=== PATIENT | female | born 1995 ===

== ENCOUNTER 2020-11-16 08:47 | Outpatient (REF) | payer OTHER, SELFPAY ==
[2020-11-16 11:33] LABS: Hematocrit 35.8 % (37-47); Hemoglobin 11.9 g/dl (12.0-16.0); Mean Corpuscular HGB Conc 33.2 g/dl (31.0-35.0); Mean Corpuscular Hemoglobin 28.7 pg (27.0-33.0); Mean Corpuscular Volume 86.3 fL (80-98); Mean Platelet Volume 10.8 fL (9.4-12.3); Platelet Count 221 X10*3/uL (160-400); Red Blood Count 4.15 X10*6/uL (4.20-5.50); White Blood Count 5.2 X10*3/uL (4.8-10.8)
[2020-11-16 12:15] LABS: Alanine Aminotransferase 14 U/L (0-31); Albumin Level 4.6 g/dL (3.5-5.0); Alkaline Phosphatase 102 U/L (39-117); Anion Gap 13 (12-20); Aspartate Amino Transferase 21 U/L (5-31); Bilirubin Total 0.6 mg/dL (0.0-1.0); Blood Urea Nitrogen 6 mg/dL (9-16); Calcium 9.3 mg/dL (8.4-10.2); Carbon Dioxide 26 mmol/L (22-29); Chloride 105 mmol/L (96-108); Estimated Glomerular Filt Rate > 60; Glucose Random 82 mg/dL (60-115); Potassium 3.3 mmol/L (3.3-5.1); Sodium 141 mmol/L (135-145); Total Protein 6.6 g/dL (6.5-8.0)
[2020-11-16 12:41] LABS: Rheumatoid Factor < 15.0 IU/mL (<15.0)
[2020-11-16 12:49] LABS: Erythrocyte Sedimentation Rate 4 MM/HR (0-20)
[2020-11-17 11:37] LABS: Cyclic Citrullinated Peptide <16 UNITS
== END 2020-11-16 08:48 | disposition home or self-care (01) ==
LOC: HO.HMGCLDS 08:47
PROVIDERS: PCP Internal Medicine; Visit Provider Internal Medicine
DX: R51.9 Headache, unspecified (principal); G89.29 Other chronic pain; M54.5 Low back pain
CPT/HCPCS: 36415; 80053; 85027; 85652; 86200; 86431

== ENCOUNTER 2021-01-18 08:00 | Outpatient (RCR) | payer OTHER, SELFPAY ==
--- NOTE | 2020-11-24 18:26 | MHC.PT.EP ---
[facility] [place] Office [place] Office [place] Office [address] [place] [address] [phone] F: [phone] F: [phone] F: [phone] F: [phone] Physical Therapy Plan of Care Date of Evaluation: 11/24/20 Date of Surgery: Diagnosis: BACK PAIN AND KNEE PAIN Assessment: 25 YO FEMALE REF TO PT FOR LBP AND ALONSO KNEE PAIN- H/O COVID IN OCT 2020 AND VAGINAL OF HER 1ST CHILD IN JUL 2020. SHE WORKS 30 HRS/ WK A CARDIAC US. SHE HAS DECR POSTURE AWARENESS, (-) SENSORIMOTOR DEFICITS, LIMITED HS FLEXIB, SORE W END RANGE TRUNK FLEX AND EXT, AND (+) SOFT TISSUE IRRIT, (+) SI Jt DYSFUNCTION, WITH (+) PELVIC ASYMM. FUNCTIONALLY, Pt HAS PAIN W SITTING AND STANDING AND LIFTING. SHE CURRENTLY HAS 2 FINGER-WIDTH DIASTASIS RECTI. Pt WOULD BENEFIT FROM PT TO ADDRESS PELVIC ASYMM, IMPROVE HS FLEXIB, AND DEV A HEP TO ADDRESS LUMBOPELVIC STRENGTH. Frequency and Duration: The patient will be seen 2x WK x 4 WKS Short Term Goals: DECR Pt'S LS PAIN TO 2-3/10 IN 2 WKS Pt'S HS FLEXIB WFL AND Pt DEMON PROPER FUNCT SQUAT IN 2 WKS Group Home Goals: Pt INDEP W HEP FOR STRENGTH AND STAB AND SELF-SX MGMT TECHN- WFL STRENGTH EVIDENT IN SYMMETRICAL PELVIS IN 4 WKS Pt PERF 3:3 SIMUL ADLs/ CHILDCARE TASKS W PROPER BODY MECH IN 4 WKS Treatment Plan: Modalities to reduce pain, spasms and effusion. Manual therapy to restore motion and function. Therapeutic exercise to improve strength and flexibility. Neuromuscular re-education for posture and balance. Therapeutic activities to return to functional activities of daily living. Electronically signed by: Sushila Barber PT Please sign and return to therapist. Thank you for your referral.
--- NOTE | 2021-01-18 09:01 | MHC.PT.DC ---
[facility] [place] Office [place] Office [place] Office [address] [place] [address] [phone] F: [phone] F: [phone] F: [phone] F: [phone] Physical Therapy Discharge Report Diagnosis: BACK PAIN AND KNEE PAIN Date of Surgery: Date of Evaluation: 11/24/20 Date of Discharge: 01/18/21 Treatments to Date: 11 Cancellations to Date: 1 No Shows to Date: 0 Discharge Status: Achieved Goals Improved Function Independent with HEP Discharge Summary: Pt MET PT GOALS AT THIS TIME- SHE DEMON IMPROVED AWARENESS W POSTURE AND BODY MECH, AND COMPLIANCY W HEP. SHE HAS INCR STRENGTH EVIDENT W IMPROVED PELVIC SYMM AND WILL CONT TO ADRESS FLEXIBILITY AND STABILITY WITH HEP. Electronically signed by: Sushila Barber,PT Please sign and return to therapist. Thank you for your referral.
== END 2021-01-18 09:03 | disposition other institution (70) ==
LOC: HO.PTCHIC 08:00
PROVIDERS: PCP Internal Medicine; Visit Provider Internal Medicine
DX: M54.5 Low back pain (principal)
CPT/HCPCS: 97110; 97112; 97140; 97161; 97530

== ENCOUNTER 2021-02-22 13:38 | Outpatient (REF) | payer OTHER, MEDICAID, SELFPAY ==
--- NOTE | ~2021-02-22 | US_ITS ---
EXAMINATION: US DIAGNOSTIC ULTRASOUND BREAST, LEFT CLINICAL INFORMATION: Left breast lump. COMPARISON: None. TECHNIQUE: Ultrasound of the breast is performed with real-time harper scale imaging and color Doppler. FINDINGS: There is no focal suspicious finding. There is no solid mass, architectural abnormality, duct ectasia, or edema in the soft tissue planes. Intramammary lymph node is seen at approximately 2:00 position 5 cm from the nipple. Results are discussed with the patient at time of visit. US/US breast LT limited IMPRESSION: No suspicious ultrasound findings in region of palpable abnormality of the left breast. ASSESSMENT: BI-RADS 1: Negative RECOMMENDATION: Clinical follow-up for palpable abnormality not seen on imaging. This patient's information was entered into a reminder system with a target due date for their next mammogram.
== END 2021-02-22 13:39 | disposition home or self-care (01) ==
LOC: HO.MAMMO 13:38
PROVIDERS: PCP Internal Medicine; Visit Provider Nurse Practitioner Family
DX: N61.0 Mastitis without abscess (principal)
CPT/HCPCS: 76642

== ENCOUNTER 2021-12-02 08:12 | Outpatient (REF) | payer OTHER, MEDICAID, SELFPAY ==
--- NOTE | ~2021-12-02 | FL_ITS ---
EXAMINATION: FL BARIUM SWALLOW CLINICAL INFORMATION: Dysphasia COMPARISON: None TECHNIQUE: Barium swallow examination is performed using fluoroscopic evaluation in addition to multiple fluoroscopic spot views. The patient is imaged both upright and prone and using both thick and thin sulfate along with effervescent granules. Fluoroscopy Time: 1 minutes DAP: 0.623 Gycm2 Images: 33 FINDINGS: There is normal apposition of the vocal cords while saying E. There is normal elevation of the soft palate while saying candy. There is no evidence of nasopharyngeal reflux or tracheal aspiration. No Zenker's diverticulum. No cricopharyngeal hypertrophy. Patient was unable to swallow half-inch diameter barium tablet not related to any strictures. The patient did swallow barium coated cookie without difficulty. Patient states that she does not take pills. No hiatal hernia was seen. There is normal esophageal motility. No mucosal abnormality is seen. No gastroesophageal reflux. FL/FL barium swallow IMPRESSION: Normal esophagram.
== END 2021-12-02 08:13 | disposition home or self-care (01) ==
LOC: HO.XRAY 08:12
PROVIDERS: PCP Internal Medicine; Visit Provider Otolaryngology
DX: R13.10 Dysphagia, unspecified (principal)
CPT/HCPCS: 74220

== ENCOUNTER 2022-02-03 19:55 | Emergency (ER) | payer OTHER, MEDICAID, SELFPAY ==
[2022-02-03 20:46] VITALS: BP 132/87; PULSE 101; RESP 18; TEMP 36.6; O2SAT 100; BMI 21.8
--- NOTE | 2022-02-03 21:37 | ED.NEUROSD ---
HPI - Neuro Symptoms/Deficit General Chief Complaint: Neuro Symptoms/Deficit Stated Complaint: Tongue feels heavy Time Seen by Provider: 02/03/22 21:37 Source: patient Mode of arrival: ambulatory Limitations: no limitations History of Present Illness HPI Narrative: 26-year-old female who presents emergency department for evaluation of her tongue feeling weird, right sided facial tingling this and right sided headache. The patient states that she was at a birthday green party and getting ready to leave around 19:00 hours she states that she then developed a weird sensation in her tongue which describes as heaviness and she had difficulty talking. She also developed a right-sided headache that she describes as a pinching sensation which was 5/10 at its worst. She also had a tingling sensation on the right side of her head, she felt dizzy and short of breath. She states that her headache is still persistent and her tongue is feeling almost back to normal. She has no difficulty talking or finding words. She denies any numbness or weakness. She denies being ill in any way prior to the onset of symptoms. She states that after she gave she did have chronic headaches but it is unusual for her to have headaches. She does not have a history of migraine headaches. Onset (ago): hour(s) (3) Timing confirmed by: other (Patient) Location: right face and other (Right-sided headache, tongue heaviness) History of same: No Severity: moderate Quality: tingling Relieving factors: none Exacerbating factors: none Context: sudden onset On Anticoagulants: No Associated symptoms: headaches (Right-sided pinching sensation) and shortness of breath Treatments Prior to Arrival: none Related Data Home Medications Medication Instructions Recorded Confirmed No Known Home Meds 11/21/21 11/21/21 Allergies Allergy/AdvReac Type Severity Reaction Status Date / Time No Known Allergies Allergy Verified 02/03/22 20:51 Review of Systems Review of Systems: Yes all other systems are reviewed and are negative [facility] Past Medical History [facility] Narrative: Past medical history: None. Past surgical history: None. Social history: She denies tobacco use. She denies alcohol use. She denies drug use. She works here at [employer] as an [employer]. Medical History Annual physical exam Chronic headaches Chronic lower back pain Eczema Knee pain Sore throat Surgical History History of hernia repair Family History Family History Father Medical history non-contributory Mother HTN (hypertension) Maternal Grandfather Unknown family medical history Maternal Grandmother Unknown family medical history Paternal Grandmother No problems noted. Paternal Grandfather Unknown family medical history Brother No problems noted. Sister No problems noted. 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 Housing: House Alcohol intake: never Patient Tobacco Use Status: Never used Tobacco e-Cigarette/Vaping Use: Never Used Advance Directives: No Advance Directives Information Provided: No Patient : No Current occupational status: employed Physical Exam Vital Signs: Vital Signs: Last Vital Signs Temp 97.8 F 02/03/22 20:46 Pulse 101 H 02/03/22 20:46 Resp 18 02/03/22 20:46 BP 132/87 02/03/22 20:46 Pulse Ox 100 02/03/22 20:46 BMI result Body Mass Index 21.8 Const: General: cooperative and no acute distress Orientation/consciousness: oriented to person and oriented to place Limitations: no limitations HEENT: Head: Yes normal to inspection, Yes normocephalic and Yes atraumatic Ears: external ears normal General nose exam: Normal external nose present Face and sinus: Yes normal facial exam Mouth: Normal oral and palatal mucosa present Throat: Yes posterior oropharynx normal Eyes: General: appearance normal, both eyes and all related structures Pupils: Equal, round and reactive pupils present Neck: Neck: Yes normal visual inspection, Yes no lymphadenopathy, Yes trachea midline and Yes supple Chest: Chest palpation & inspection: normal inspection of the chest and normal palpation of entire chest wall Resp: Effort & Inspection: normal respiratory effort and able to speak in complete sentences Auscultation: clear to auscultation bilaterally Cardio: Rate: regular rate Rhythm: regular rhythm Heart sounds: S1 normal heart sound present, S2 normal heart sound present and no murmurs GI: Inspection: Yes normal to inspection Palpation (GI): Soft to palpation, nontender and no guarding Auscultation: normal bowel sounds : General: Yes no CVA tenderness Back/Spine/Pelvis: Back: no CVA tenderness Skin: General skin exam: no rashes or lesions noted Neuro: General: oriented to person and oriented to place Cranial nerves: Yes CN's II-XII intact bilaterally and Yes Equal, round and reactive pupils present Cognition (Neuro): normal cognition Motor exam (neuro): 5/5 motor strength present throughout Extrem: General: Yes normal to inspection Psych: Appearance: grossly normal Speech and movement: Normal speech and movement present Affect: normal affect Attitude: cooperative Thought process: Normal thought process present Thought content: Normal thought content present Course Course Course Narrative: 26-year-old female who presents emergency department for evaluation of sudden onset of a ?weird ?sensation in her time, right-sided facial tingling miss, right-sided headache, shortness of and difficulty talking which began at 19:16 hours when the patient was getting ready to leave a birthday green party. At the time my evaluation the patient's symptoms are almost completely resolved, she still has a slight headache but she believes that her time sensations are almost back to normal and the tingling this on the right side of her face is also resolved. Patient's initial vital signs did reveal tachycardia with a heart rate of 101 otherwise were unremarkable. The patient's physical examination including her neurologic exam was normal. Patient's tongue exam was normal and her speech is normal. At this time, I suspect that the patient's symptoms are consistent with a migraine headache syndrome and I did not think that she has had a stroke. I did discuss this with her. Patient was given printed and verbal instructions and discharged home. Discharge Plan Discharge Clinical Impression: Migraine Patient Disposition: Home, Self-Care Instructions: Migraine Headache (ED) Additional Instructions: At this time, I believe that your symptoms of your tongue feeling ?weird? , the tingling sensation on the right side of your face and your right-sided headache are consistent with a migraine headache syndrome. When you get home take either Tylenol 2 tablets orally or ibuprofen 2 tablets by mouth for your headache and hopefully this will make you symptoms go away completely. Follow-up with your doctor in 2 days. Please return to the emergency department if your symptoms get worse or if you develop any symptoms that are concerning to you. Prescriptions: No Action No Known Home Meds 0RF
== END 2022-02-03 22:00 | disposition home or self-care (01) ==
PROVIDERS: Emergency Provider Emergency Medicine Emergency Medical Services; PCP Internal Medicine
DX: G43.009 Migraine without aura, not intractable, without status migrainosus (principal)
CPT/HCPCS: 99282; 99283

== ENCOUNTER 2022-04-04 09:07 | Outpatient (REF) | payer OTHER, MEDICAID, SELFPAY ==
[2022-04-04 11:32] LABS: MANUAL DIFF FLAG NO
[2022-04-04 11:53] LABS: Basophils Absolute Auto 0.1 X10*3/uL (0.0-0.2); Basophils Percent Auto 1.3 % (0-2); Eosinophils Absolute Auto 0.1 X10*3/uL (0.0-0.4); Eosinophils Percent Auto 3.1 % (0-4); Hematocrit 38.7 % (37.0-47.0); Hemoglobin 12.4 g/dl (12.0-16.0); Imm Gran Abs Auto 0.01 X10*3/uL (0.00-0.03); Imm Gran Pct Auto 0.2 % (0.0-0.4); Lymphocytes Absolute Auto 1.3 X10*3/uL (1.2-4.9); Lymphocytes Percent Auto 29.9 % (20-40); Mean Corpuscular Hemoglobin 29.1 pg (27.0-33.0); Mean Corpuscular Volume 90.8 fL (80.0-98.0); Monocytes Absolute Auto 0.4 X10*3/uL (0.1-1.2); Monocytes Percent Auto 9.4 % (2-11); Neutrophils Absolute Auto 2.5 x10*3/uL (2.0-8.3); Neutrophils Percent Auto 56.1 % (45-73); Platelet Count 247 X10*3/uL (160-400); Red Blood Count 4.26 X10*6/uL (4.20-5.50); Red Cell Distribution Width 12.6 % (11.0-16.0); White Blood Count 4.5 X10*3/uL (4.8-10.8)
[2022-04-04 12:12] LABS: Alanine Aminotransferase 7 U/L (0-31); Albumin Level 4.8 g/dL (3.5-5.0); Alkaline Phosphatase 88 U/L (39-117); Anion Gap 12 (12-20); Aspartate Amino Transferase 17 U/L (5-31); Bilirubin Total 0.5 mg/dL (0.0-1.0); Blood Urea Nitrogen 12 mg/dL (9-16); Calcium 9.8 mg/dL (8.4-10.2); Carbon Dioxide 25 mmol/L (22-29); Chloride 106 mmol/L (96-108); Cholesterol 138 mg/dL; Estimated Glomerular Filt Rate > 60; Glucose Fasting 86 mg/dL (60-99); HDL Cholesterol 55 mg/dL; LDL Cholesterol Calculated 76 mg/dl; Potassium 4.6 mmol/L (3.3-5.1); Sodium 138 mmol/L (135-145); Total Protein 7.4 g/dL (6.5-8.0); Triglycerides 36 mg/dL
[2022-04-04 12:35] LABS: TSH reflex Free T4 0.99 uIU/mL (0.32-4.0)
== END 2022-04-04 09:08 | disposition home or self-care (01) ==
LOC: HO.HMGCLDS 09:07
PROVIDERS: PCP Internal Medicine; Visit Provider Internal Medicine
DX: Z00.00 Encounter for general adult medical examination without abnormal findings (principal); R63.4 Abnormal weight loss; Z71.3 Dietary counseling and surveillance
CPT/HCPCS: 36415; 80053; 80061; 84443; 85025; 97802

== ENCOUNTER 2022-11-05 18:11 | Emergency (ER) | payer MEDICAID, SELFPAY ==
--- NOTE | 2022-11-05 18:14 | ED_ITS ---
HPI - Allergic Reaction General Chief complaint: Allergic Reaction Stated complaint: allergic reaction/ difficulty swallowing Time Seen by Provider: 11/05/22 19:36 Source: patient Mode of arrival: ambulatory History of Present Illness HPI narrative: 27yo F w/no sig PMHx presenting to the ED complaining of suspected allergic reaction with sore throat, throat tightness and SOB s/p eating shrimp 10 mins [employer]. Admits to milder reaction to shrimp in the past. Denies other known previous allergens. Denies rash, CP, other new medications, abdominal pain, nausea/vomiting MD complaint: allergic reaction Onset (ago): minute(s) Exposure: food Related Data Previous Rx's Medication Instructions Recorded cetirizine 10 mg capsule (Zyrtec) 10 mg PO DAILY #14 caps 11/05/22 diphenhydramine HCl 25 mg capsule 25 mg PO TID PRN allergic reaction 11/05/22 (Benadryl) #14 caps Allergies Allergy/AdvReac Type Severity Reaction Status Date / Time shrimp Allergy Facial Verified 11/05/22 18:21 Swelling Review of Systems Review of Systems: Constitutional: No Fever, No Chills, No Fatigue, No Malaise ENT/Mouth: No Ear Pain, No Nasal Congestion, No Sinus Pain, No Hoarseness, + sore throat, No Rhinorrhea, No Swallowing Difficulty Eyes: No Eye Pain, No Swelling, No Redness Cardiovascular: No Chest Pain, + SOB, No Dyspnea on Exertion Respiratory: No Cough, No Sputum, No Wheezing, No Dyspnea Gastrointestinal: No Nausea, No Vomiting, No Diarrhea, No Constipation, No Abdominal pain Musculoskeletal: No joint pain, No Myalgias, No Joint Swelling Skin: No Skin Lesions, No rash Neuro: No Weakness, No Numbness, No Headache Yes all other systems are reviewed and are negative Constitutional: Constitutional: Reports as per [facility] Past Medical History Attestation statement: The following information was validated with the patient. Medical History Annual physical exam Chronic headaches Chronic lower back pain Eczema Knee pain Sore throat Weight loss Surgical History History of hernia repair Family History Family History Father Medical history non-contributory Mother HTN (hypertension) Maternal Grandfather Unknown family medical history Maternal Grandmother Unknown family medical history Paternal Grandmother No problems noted. Paternal Grandfather Unknown family medical history Brother No problems noted. Sister No problems noted. 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: House Alcohol intake: never Patient Tobacco Use Status: Never used Tobacco e-Cigarette/Vaping Use: Never Used Advance Directives: No Advance Directives Information Provided: No Current occupational status: employed Cognitive needs: No Hearing needs: No Vision needs: Yes Physical Exam ED Vital Signs: Vital Signs - 24 hr 11/05/22 18:15 Temperature 97.2 F Pulse Rate 116 H Respiratory Rate 18 Blood Pressure 132/70 Pulse Oximetry 99 BMI result Body Mass Index 20.2 Const General: cooperative, healthy appearing and no acute distress Orientation/consciousness: patient oriented x3 Limitations: no limitations HENMT Head: Yes normal to inspection and Yes atraumatic Ears: hearing grossly normal bilaterally General nose exam: Normal external nose present Face and sinus: Yes normal facial exam Mouth: Normal oral and palatal mucosa present and no drooling Throat: Yes posterior oropharynx normal, Yes tonsils normal, Yes uvula midline, No peritonsillar mass, No posterior oropharynx abnormal, No uvula laterally displaced and No uvular edema Eyes General: appearance normal, both eyes and all related structures EOM: EOMs intact bilaterally Neck Neck: Yes normal visual inspection, Yes no meningeal signs and No anterior neck swelling Resp Effort & Inspection: normal respiratory effort, no respiratory distress, no stridor and not tachypneic Auscultation: clear to auscultation bilaterally, no crackles, no rales, no rhonchi and no wheezes Cardio Rate: regular rate Heart sounds: S1 normal heart sound present and S2 normal heart sound present Skin Rashes: no rashes Wounds: no wounds Neuro General: patient oriented x3, tone normal and no meningeal signs Gait exam (Neuro): Normal gait present Extrem General: Yes normal to inspection Course Course Course Narrative: RME--27yo F w/no sig PMHx c/o sore throat, throat tightness and SOB s/p eating shrimp 10 mins [employer]. Admits to milder reaction to shrimp in the past. Denies other known previous allergens. Denies rash. Denies taking medications [employer] No rash, Lungs CTA, oropharynx WNL, uvula midline, handling secretions, talking in complete sentences IM Benadryl, IM Solumedrol and PO Pepcid ordered -1935--patient has been observed and re-evaluated for over an hour s/p incident, reports symptomatic improvement/resolution at present, talking in complete sentences, no respiratory distress. Results discussed with patient including worrisome signs and symptoms and strict return precautions, and when to return to the emergency department. They demetris balized understanding and feel safe for discharge at this time. Medications Administered Discontinued Medications Generic Name Dose Route Start Last Admin Trade Name Freq PRN Reason Stop Dose Admin Diphenhydramine HCl 50 mg 11/05/22 18:15 11/05/22 18:27 Diphenhydramine Hcl 50 Mg/Ml Vial IM 11/05/22 18:16 50 mg ONCE ONE Administration Famotidine 20 mg 11/05/22 18:15 11/05/22 18:27 Famotidine 20 Mg Tablet PO 11/05/22 18:16 20 mg ONCE ONE Administration Methylprednisolone Sodium Succinate 60 mg 11/05/22 18:15 11/05/22 18:27 Methylprednisolone Sod Succ 125 Mg/2 Ml Vial IM 11/05/22 18:16 60 mg ONCE ONE Administration Medical Decision Making Medical Decision Making [facility] Narrative: 27yo F w/no sig PMHx presenting to the ED complaining of suspected allergic reaction with sore throat, throat tightness and SOB s/p eating shrimp 10 mins [employer]. On exam mildly tachycardic likely from anxiety, NAD, nontoxic appearing, no respiratory distress, lungs CTA, handling secretions, no stridor, or pharynx WNL, no appreciable swelling, uvula midline. No rash. Concern for allergic reaction. No evidence of anaphylaxis at this time. Plan: IM Benadryl, IM Solu-Medrol, PO Pepcid, observe and reassess Please refer to course for remaining clinical decision making, interpretation of labs/imaging results, and discussions with consultants and/or family members. Differential Diagnosis Differential Diagnoses: The differential diagnosis associated with the presentation includes As above Admission/Observation Consideration of admission/observation: Escalation of care including admission/observation considered Prescription Management I considered prescription management with: Other Critical Care Time Critical Care Time Critical Care Time: Yes Total Critical Care Time: 35 Attestation: I have personally provided critical care time exclusive of time spent on separately billable procedures. Time includes review of lab data, radiology results, discussion with consultants, and monitoring for potential decompensation. Intervention performed as documented. Discharge Plan Discharge Clinical Impression: Allergic reaction Patient Disposition: Home, Self-Care Instructions: General Allergic Reaction (ED) Additional Instructions: Please start taking Zyrtec daily, this will not make you drowsy. Take Benadryl as needed for allergic reaction symptoms, this pill make you drowsy Please follow-up with her primary care doctor and medical receptionist If symptoms recur, he developed throat swelling, itching, cough, shortness of breath, or rash return to the emergency department Prescriptions: New Zyrtec 10 mg capsule 10 mg PO DAILY Qty: 14 0RF diphenhydramine HCl [Benadryl] 25 mg capsule 25 mg PO TID PRN (Reason: allergic reaction) Qty: 14 0RF Referrals: Álvaro Mack MD [Physician] - Jaden Miller DO [Physician] - Amrita Elise MD [Primary Care Provider] - 2 days Connie Swenson MD [Physician] - Jaswinder Barger MD [Physician] - Alison Lock MD [Physician] -
[2022-11-05 18:15] VITALS: BP 132/70; PULSE 116; RESP 18; TEMP 36.2; O2SAT 99; BMI 20.2
[2022-11-05] MEDS: Famotidine 20 MG TABLET PO (18:27)
[2022-11-05] MEDS: methylPREDNISolone Sod Succ 125 MG/2 ML VIAL 60 MG IM (18:27)
[2022-11-05] MEDS: diphenhydrAMINE HCL 50 MG/ML VIAL IM (18:27)
[2022-11-05 19:48] VITALS: PULSE 86; O2SAT 98
== END 2022-11-05 19:49 | disposition home or self-care (01) ==
PROVIDERS: Emergency Provider Internal Medicine; PCP Internal Medicine
DX: L50.0 Allergic urticaria (principal); Z79.899 Other long term (current) drug therapy
CPT/HCPCS: 96372; 99282; 99284; J1200; J2930

== ENCOUNTER 2022-11-14 19:09 | Emergency (ER) | payer MEDICAID, SELFPAY ==
[2022-11-14 19:47] VITALS: BP 185/95; PULSE 122; RESP 20; TEMP 36.8; O2SAT 98; BMI 20.2
--- NOTE | 2022-11-14 19:49 | ED_ITS ---
HPI - General Adult General Chief complaint: General Medical <Usha Dorado CNP - Last Filed: 11/14/22 19:57> Stated complaint: dizziness,elevated bp,blurry vision <Usha Dorado CNP - Last Filed: 11/14/22 19:57> Time Seen by Provider: 11/14/22 22:58 <Usha Dorado CNP - Last Filed: 11/14/22 19:57> Source: patient <Robert Martinez MD - Last Filed: 11/14/22 23:58> Mode of arrival: ambulatory <Robert Martinez MD - Last Filed: 11/14/22 23:58> History of Present Illness HPI narrative: Patient otherwise healthy history of panic attack/anxiety chronic headaches been having 1 week of nonspecific complaints of dizziness nausea blurred vision body aches started having headache today patient was anxious on arrival with pulse rate of 122 and blood pressure 185/95 repeat blood pressure was 125/78 pain patient also feel dizzy with nausea patient headache is bilateral nonspecific uncomfortable with light sensitivity and nausea <Robert Martinez MD - Last Filed: 11/14/22 23:58> Related Data Home medications: Previous Rx's Medication Instructions Recorded cetirizine 10 mg capsule (Zyrtec) 10 mg PO DAILY #14 caps 11/05/22 diphenhydramine HCl 25 mg capsule 25 mg PO TID PRN allergic reaction 11/05/22 (Benadryl) #14 caps fgprxpggpu-[id number]-ufcjzjyd 1 cap PO Q6H PRN headache #20 caps 11/14/22 50 mg-300 mg-40 mg capsule (Fioricet) sumatriptan succinate 50 mg tablet 50 mg PO Q2H PRN migraine headache 11/14/22 (Imitrex) #10 tabs <Usha Dorado CNP - Last Filed: 11/14/22 19:57> Allergies/adverse reactions: Allergies Allergy/AdvReac Type Severity Reaction Status Date / Time shrimp Allergy Facial Verified 11/05/22 18:21 Swelling <Usha Dorado CNP - Last Filed: 11/14/22 19:57> Review of Systems Review of Systems: Yes all other systems are reviewed and are negative <Robert Martinez MD - Last Filed: 11/14/22 23:58> FOR[facility]LY [facility] Past Medical History Medical History: Medical History Annual physical exam Chronic headaches Chronic lower back pain Eczema Knee pain Sore throat Weight loss <Usha Doardo CNP - Last Filed: 11/14/22 19:57> Surgical History: Surgical History History of hernia repair <Usha Dorado CNP - Last Filed: 11/14/22 19:57> Family History Family History: Family History Father Medical history non-contributory Mother HTN (hypertension) Maternal Grandfather Unknown family medical history Maternal Grandmother Unknown family medical history Paternal Grandmother No problems noted. Paternal Grandfather Unknown family medical history Brother No problems noted. Sister No problems noted. 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 Housing: House Alcohol intake: never Patient Tobacco Use Status: Never used Tobacco e-Cigarette/Vaping Use: Never Used Advance Directives: No Advance Directives Information Provided: No Current occupational status: employed Cognitive needs: No Hearing needs: No Vision needs: Yes <Usha Dorado CNP - Last Filed: 11/14/22 19:57> Physical Exam ED Vital Signs: Vital Signs - 24 hr 11/14/22 19:47 11/14/22 22:21 Temperature 98.2 F 98 F Pulse Rate 122 H 78 Respiratory Rate 20 18 Blood Pressure 185/95 H 125/78 Pulse Oximetry 98 98 Oxygen Delivery Method Room Air Room Air BMI result Body Mass Index 20.2 <Usha Dorado CNP - Last Filed: 11/14/22 19:57> Vital Signs - 24 hr 11/14/22 19:47 11/14/22 22:21 Temperature 98.2 F 98 F Pulse Rate 122 H 78 Respiratory Rate 20 18 Blood Pressure 185/95 H 125/78 Pulse Oximetry 98 98 Oxygen Delivery Method Room Air Room Air BMI result Body Mass Index 20.2 <Robert Martinez MD - Last Filed: 11/14/22 23:58> Appearance: Alert. Oriented X3. No acute distress. Anxious Eyes: PERRLA, No Nystagmus ENT: Pharynx normal. Oral Mucosa moist no temporal artery tenderness Neck: Normal inspection. Neck supple. CVS: Normal heart rate and rhythm. Pulses normal. Respiratory: No respiratory distress. Equal air entry bilateral, no wheezing/rales/rhonchi Abdomen: Soft and nontender. Bowel sounds are present, no mass palpable, no CVA tenderness Skin: Skin warm and dry. Normal skin color. Normal skin turgor. Extremities: No lower extremity edema. No calf tenderness Neuro: Oriented X 3. No motor deficit. No sensory deficit.No cerebellar signs , cranial nerves II-XII intact <Robert Martinez MD - Last Filed: 11/14/22 23:58> Course Course Course Narrative: Patient is a 27-year-old female presents emergency department. She states that this morning she developed a headache diffuse since this morning, soon after developed dizziness, described as unsteadiness when walking as well as room spinning sensation, and blurred vision. No nausea without vomiting. Chest pain that is intermittent, pointing to lower midsternal region/epigastric. She went to stop and shop today to check her blood pressure states he was 140/86, no hx HTN. Symptom onset was 1 week ago. Denies possibility of , currently menstruating. Denies history of DVT/PE, cancer, oral contraceptives, cigarette smoking. Denies any recent surgery or immobilization. Does not trialed any OTC medications for the headache. Denies any history migraines/recurrent headaches. PE: tearful, anxious, tachycardia 110's. Plan: Labs, EKG, chest x-ray, viral testing <Usha Dorado CNP - Last Filed: 11/14/22 19:57> Medical Decision Making Medical Decision Making MDM Narrative: Patient's symptoms likely from anxiety/complex migraine headache improved after Imitrex and Fioricet will discharge patient home on the same advised to follow with PCP patient labs are negative for any acute infectious process <Robert Martinez MD - Last Filed: 11/14/22 23:58> Lab Data MDM Lab Attestation statement: I reviewed the patient's lab results. <Robert Martinez MD - Last Filed: 11/14/22 23:58> Result Diagrams: 11/14/22 20:29 11/14/22 20:26 <Usha Dorado CNP - Last Filed: 11/14/22 19:57> Labs: Lab Results 11/14/22 11/14/22 11/14/22 Range/Units 20:26 20:26 20:26 WBC (4.8-10.8) X10*3/uL RBC (4.20-5.50) X10*6/uL Hgb (12.0-16.0) g/dl Hct (37.0-47.0) % MCV (80.0-98.0) fL MCH (27.0-33.0) pg MCHC (31.0-35.0) g/dl RDW (11.0-16.0) % Plt Count (160-400) X10*3/uL MPV (9.4-12.3) fL Immature Gran % (Auto) (0.0-0.4) % Neut % (Auto) (45-73) % Lymph % (Auto) (20-40) % [place] % (Auto) (2-11) % Eos % (Auto) (0-4) % Baso % (Auto) (0-2) % Lymph # (Auto) (1.2-4.9) X10*3/uL [place] # (Auto) (0.1-1.2) X10*3/uL Eos # (Auto) (0.0-0.4) X10*3/uL Baso # (Auto) (0.0-0.2) X10*3/uL Abs Immat Gran (auto) (0.00-0.03) X10*3/uL Absolute Neuts (auto) (2.0-8.3) x10*3/uL Absolute Nucleated RBC (0.0-0.012) X10*3/uL Nucleated RBC % (auto) (0.0-0.2) /100WBC PT 11.7 (10.0-13.1) SEC INR 1.0 (0.9-1.1) Sodium 139 (135-145) mmol/L Potassium 3.8 (3.3-5.1) mmol/L Chloride 106 (96-108) mmol/L Carbon Dioxide 22 (22-29) mmol/L Anion Gap 15 (12-20) BUN 15 (9-16) mg/dL Creatinine 0.76 (0.5-1.4) mg/dL Estim Creat Clear Calc 76.5 Estimated GFR > 60 Random Glucose 90 (60-115) mg/dL Calcium 10.1 (8.4-10.2) mg/dL Magnesium 2.0 (1.6-2.6) mg/dL Total Bilirubin 0.5 (0.0-1.0) mg/dL AST 18 (5-31) U/L ALT 6 (0-31) U/L Alkaline Phosphatase 94 (39-117) U/L Troponin I High Sens < 3.5 (<3.5-17.0) ng/L Total Protein 6.9 (6.5-8.0) g/dL Albumin 4.6 (3.5-5.0) g/dL Lipase 24 (8-78) U/L Urine Color Urine Appearance Urine pH (5.0-9.0) Ur Specific [place] (1.005-1.025) Urine Protein (Neg-Trace) mg/dL Urine Glucose (UA) (Negative) mg/dL Urine Ketones (Negative) mg/dL Urine Blood (Negative) Urine Nitrite (Negative) Ur Leukocyte Esterase (Negative) Urine Test (NEGATIVE) COVID-19 (NEL) (Negative) COVID-19 Clin Com Influenza Type A (MEGA) (Negative) Influenza Type B (MEGA) (Negative) Influenza A & B Note 11/14/22 11/14/22 11/14/22 Range/Units 20:26 20:26 20:29 WBC 6.6 (4.8-10.8) X10*3/uL RBC 3.91 L (4.20-5.50) X10*6/uL Hgb 11.7 L (12.0-16.0) g/dl Hct 34.5 L (37.0-47.0) % MCV 88.2 (80.0-98.0) fL MCH 29.9 (27.0-33.0) pg MCHC 33.9 (31.0-35.0) g/dl RDW 12.6 (11.0-16.0) % Plt Count 254 (160-400) X10*3/uL MPV 10.0 (9.4-12.3) fL Immature Gran % (Auto) 0.3 (0.0-0.4) % Neut % (Auto) 48.7 (45-73) % Lymph % (Auto) 39.2 (20-40) % [place] % (Auto) 9.8 (2-11) % Eos % (Auto) 1.2 (0-4) % Baso % (Auto) 0.8 (0-2) % Lymph # (Auto) 2.6 (1.2-4.9) X10*3/uL [place] # (Auto) 0.6 (0.1-1.2) X10*3/uL Eos # (Auto) 0.1 (0.0-0.4) X10*3/uL Baso # (Auto) 0.1 (0.0-0.2) X10*3/uL Abs Immat Gran (auto) 0.02 (0.00-0.03) X10*3/uL Absolute Neuts (auto) 3.2 (2.0-8.3) x10*3/uL Absolute Nucleated RBC 0.000 (0.0-0.012) X10*3/uL Nucleated RBC % (auto) 0.0 (0.0-0.2) /100WBC PT (10.0-13.1) SEC INR (0.9-1.1) Sodium (135-145) mmol/L Potassium (3.3-5.1) mmol/L Chloride (96-108) mmol/L Carbon Dioxide (22-29) mmol/L Anion Gap (12-20) BUN (9-16) mg/dL Creatinine (0.5-1.4) mg/dL Estim Creat Clear Calc Estimated GFR Random Glucose (60-115) mg/dL Calcium (8.4-10.2) mg/dL Magnesium (1.6-2.6) mg/dL Total Bilirubin (0.0-1.0) mg/dL AST (5-31) U/L ALT (0-31) U/L Alkaline Phosphatase (39-117) U/L Troponin I High Sens (<3.5-17.0) ng/L Total Protein (6.5-8.0) g/dL Albumin (3.5-5.0) g/dL Lipase (8-78) U/L Urine Color Urine Appearance Urine pH (5.0-9.0) Ur Specific [place] (1.005-1.025) Urine Protein (Neg-Trace) mg/dL Urine Glucose (UA) (Negative) mg/dL Urine Ketones (Negative) mg/dL Urine Blood (Negative) Urine Nitrite (Negative) Ur Leukocyte Esterase (Negative) Urine Test (NEGATIVE) COVID-19 (NEL) Negative (Negative) COVID-19 Clin Com See Note Influenza Type A (MEGA) Negative (Negative) Influenza Type B (MEGA) Negative (Negative) Influenza A & B Note See Note 11/14/22 11/14/22 Range/Units 20:29 20:29 WBC (4.8-10.8) X10*3/uL RBC (4.20-5.50) X10*6/uL Hgb (12.0-16.0) g/dl Hct (37.0-47.0) % MCV (80.0-98.0) fL MCH (27.0-33.0) pg MCHC (31.0-35.0) g/dl RDW (11.0-16.0) % Plt Count (160-400) X10*3/uL MPV (9.4-12.3) fL Immature Gran % (Auto) (0.0-0.4) % Neut % (Auto) (45-73) % Lymph % (Auto) (20-40) % [place] % (Auto) (2-11) % Eos % (Auto) (0-4) % Baso % (Auto) (0-2) % Lymph # (Auto) (1.2-4.9) X10*3/uL [place] # (Auto) (0.1-1.2) X10*3/uL Eos # (Auto) (0.0-0.4) X10*3/uL Baso # (Auto) (0.0-0.2) X10*3/uL Abs Immat Gran (auto) (0.00-0.03) X10*3/uL Absolute Neuts (auto) (2.0-8.3) x10*3/uL Absolute Nucleated RBC (0.0-0.012) X10*3/uL Nucleated RBC % (auto) (0.0-0.2) /100WBC PT (10.0-13.1) SEC INR (0.9-1.1) Sodium (135-145) mmol/L Potassium (3.3-5.1) mmol/L Chloride (96-108) mmol/L Carbon Dioxide (22-29) mmol/L Anion Gap (12-20) BUN (9-16) mg/dL Creatinine (0.5-1.4) mg/dL Estim Creat Clear Calc Estimated GFR Random Glucose (60-115) mg/dL Calcium (8.4-10.2) mg/dL Magnesium (1.6-2.6) mg/dL Total Bilirubin (0.0-1.0) mg/dL AST (5-31) U/L ALT (0-31) U/L Alkaline Phosphatase (39-117) U/L Troponin I High Sens (<3.5-17.0) ng/L Total Protein (6.5-8.0) g/dL Albumin (3.5-5.0) g/dL Lipase (8-78) U/L Urine Color Yellow Urine Appearance Cloudy Urine pH 7.5 (5.0-9.0) Ur Specific [place] 1.025 (1.005-1.025) Urine Protein Negative (Neg-Trace) mg/dL Urine Glucose (UA) Negative (Negative) mg/dL Urine Ketones Negative (Negative) mg/dL Urine Blood Negative (Negative) Urine Nitrite Negative (Negative) Ur Leukocyte Esterase Negative (Negative) Urine Test NEGATIVE (NEGATIVE) COVID-19 (NEL) (Negative) COVID-19 Clin Com Influenza Type A (MEGA) (Negative) Influenza Type B (MEGA) (Negative) Influenza A & B Note <Usha Dorado, [employer] - Last Filed: 11/14/22 19:57> Lab Results 11/14/22 11/14/22 11/14/22 Range/Units 20:26 20:26 20:26 WBC (4.8-10.8) X10*3/uL RBC (4.20-5.50) X10*6/uL Hgb (12.0-16.0) g/dl Hct (37.0-47.0) % MCV (80.0-98.0) fL MCH (27.0-33.0) pg MCHC (31.0-35.0) g/dl RDW (11.0-16.0) % Plt Count (160-400) X10*3/uL MPV (9.4-12.3) fL Immature Gran % (Auto) (0.0-0.4) % Neut % (Auto) (45-73) % Lymph % (Auto) (20-40) % [place] % (Auto) (2-11) % Eos % (Auto) (0-4) % Baso % (Auto) (0-2) % Lymph # (Auto) (1.2-4.9) X10*3/uL [place] # (Auto) (0.1-1.2) X10*3/uL Eos # (Auto) (0.0-0.4) X10*3/uL Baso # (Auto) (0.0-0.2) X10*3/uL Abs Immat Gran (auto) (0.00-0.03) X10*3/uL Absolute Neuts (auto) (2.0-8.3) x10*3/uL Absolute Nucleated RBC (0.0-0.012) X10*3/uL Nucleated RBC % (auto) (0.0-0.2) /100WBC PT 11.7 (10.0-13.1) SEC INR 1.0 (0.9-1.1) Sodium 139 (135-145) mmol/L Potassium 3.8 (3.3-5.1) mmol/L Chloride 106 (96-108) mmol/L Carbon Dioxide 22 (22-29) mmol/L Anion Gap 15 (12-20) BUN 15 (9-16) mg/dL Creatinine 0.76 (0.5-1.4) mg/dL Estim Creat Clear Calc 76.5 Estimated GFR > 60 Random Glucose 90 (60-115) mg/dL Calcium 10.1 (8.4-10.2) mg/dL Magnesium 2.0 (1.6-2.6) mg/dL Total Bilirubin 0.5 (0.0-1.0) mg/dL AST 18 (5-31) U/L ALT 6 (0-31) U/L Alkaline Phosphatase 94 (39-117) U/L Troponin I High Sens < 3.5 (<3.5-17.0) ng/L Total Protein 6.9 (6.5-8.0) g/dL Albumin 4.6 (3.5-5.0) g/dL Lipase 24 (8-78) U/L Urine Color Urine Appearance Urine pH (5.0-9.0) Ur Specific [place] (1.005-1.025) Urine Protein (Neg-Trace) mg/dL Urine Glucose (UA) (Negative) mg/dL Urine Ketones (Negative) mg/dL Urine Blood (Negative) Urine Nitrite (Negative) Ur Leukocyte Esterase (Negative) Urine Test (NEGATIVE) COVID-19 (NEL) (Negative) COVID-19 Clin Com Influenza Type A (MEGA) (Negative) Influenza Type B (MEGA) (Negative) Influenza A & B Note 11/14/22 11/14/22 11/14/22 Range/Units 20:26 20:26 20:29 WBC 6.6 (4.8-10.8) X10*3/uL RBC 3.91 L (4.20-5.50) X10*6/uL Hgb 11.7 L (12.0-16.0) g/dl Hct 34.5 L (37.0-47.0) % MCV 88.2 (80.0-98.0) fL MCH 29.9 (27.0-33.0) pg MCHC 33.9 (31.0-35.0) g/dl RDW 12.6 (11.0-16.0) % Plt Count 254 (160-400) X10*3/uL MPV 10.0 (9.4-12.3) fL Immature Gran % (Auto) 0.3 (0.0-0.4) % Neut % (Auto) 48.7 (45-73) % Lymph % (Auto) 39.2 (20-40) % [place] % (Auto) 9.8 (2-11) % Eos % (Auto) 1.2 (0-4) % Baso % (Auto) 0.8 (0-2) % Lymph # (Auto) 2.6 (1.2-4.9) X10*3/uL [place] # (Auto) 0.6 (0.1-1.2) X10*3/uL Eos # (Auto) 0.1 (0.0-0.4) X10*3/uL Baso # (Auto) 0.1 (0.0-0.2) X10*3/uL Abs Immat Gran (auto) 0.02 (0.00-0.03) X10*3/uL Absolute Neuts (auto) 3.2 (2.0-8.3) x10*3/uL Absolute Nucleated RBC 0.000 (0.0-0.012) X10*3/uL Nucleated RBC % (auto) 0.0 (0.0-0.2) /100WBC PT (10.0-13.1) SEC INR (0.9-1.1) Sodium (135-145) mmol/L Potassium (3.3-5.1) mmol/L Chloride (96-108) mmol/L Carbon Dioxide (22-29) mmol/L Anion Gap (12-20) BUN (9-16) mg/dL Creatinine (0.5-1.4) mg/dL Estim Creat Clear Calc Estimated GFR Random Glucose (60-115) mg/dL Calcium (8.4-10.2) mg/dL Magnesium (1.6-2.6) mg/dL Total Bilirubin (0.0-1.0) mg/dL AST (5-31) U/L ALT (0-31) U/L Alkaline Phosphatase (39-117) U/L Troponin I High Sens (<3.5-17.0) ng/L Total Protein (6.5-8.0) g/dL Albumin (3.5-5.0) g/dL Lipase (8-78) U/L Urine Color Urine Appearance Urine pH (5.0-9.0) Ur Specific [place] (1.005-1.025) Urine Protein (Neg-Trace) mg/dL Urine Glucose (UA) (Negative) mg/dL Urine Ketones (Negative) mg/dL Urine Blood (Negative) Urine Nitrite (Negative) Ur Leukocyte Esterase (Negative) Urine Test (NEGATIVE) COVID-19 (NEL) Negative (Negative) COVID-19 Clin Com See Note Influenza Type A (MEGA) Negative (Negative) Influenza Type B (MEGA) Negative (Negative) Influenza A & B Note See Note 11/14/22 11/14/22 Range/Units 20:29 20:29 WBC (4.8-10.8) X10*3/uL RBC (4.20-5.50) X10*6/uL Hgb (12.0-16.0) g/dl Hct (37.0-47.0) % MCV (80.0-98.0) fL MCH (27.0-33.0) pg MCHC (31.0-35.0) g/dl RDW (11.0-16.0) % Plt Count (160-400) X10*3/uL MPV (9.4-12.3) fL Immature Gran % (Auto) (0.0-0.4) % Neut % (Auto) (45-73) % Lymph % (Auto) (20-40) % [place] % (Auto) (2-11) % Eos % (Auto) (0-4) % Baso % (Auto) (0-2) % Lymph # (Auto) (1.2-4.9) X10*3/uL [place] # (Auto) (0.1-1.2) X10*3/uL Eos # (Auto) (0.0-0.4) X10*3/uL Baso # (Auto) (0.0-0.2) X10*3/uL Abs Immat Gran (auto) (0.00-0.03) X10*3/uL Absolute Neuts (auto) (2.0-8.3) x10*3/uL Absolute Nucleated RBC (0.0-0.012) X10*3/uL Nucleated RBC % (auto) (0.0-0.2) /100WBC PT (10.0-13.1) SEC INR (0.9-1.1) Sodium (135-145) mmol/L Potassium (3.3-5.1) mmol/L Chloride (96-108) mmol/L Carbon Dioxide (22-29) mmol/L Anion Gap (12-20) BUN (9-16) mg/dL Creatinine (0.5-1.4) mg/dL Estim Creat Clear Calc Estimated GFR Random Glucose (60-115) mg/dL Calcium (8.4-10.2) mg/dL Magnesium (1.6-2.6) mg/dL Total Bilirubin (0.0-1.0) mg/dL AST (5-31) U/L ALT (0-31) U/L Alkaline Phosphatase (39-117) U/L Troponin I High Sens (<3.5-17.0) ng/L Total Protein (6.5-8.0) g/dL Albumin (3.5-5.0) g/dL Lipase (8-78) U/L Urine Color Yellow Urine Appearance Cloudy Urine pH 7.5 (5.0-9.0) Ur Specific [place] 1.025 (1.005-1.025) Urine Protein Negative (Neg-Trace) mg/dL Urine Glucose (UA) Negative (Negative) mg/dL Urine Ketones Negative (Negative) mg/dL Urine Blood Negative (Negative) Urine Nitrite Negative (Negative) Ur Leukocyte Esterase Negative (Negative) Urine Test NEGATIVE (NEGATIVE) COVID-19 (NEL) (Negative) COVID-19 Clin Com Influenza Type A (MEGA) (Negative) Influenza Type B (MEGA) (Negative) Influenza A & B Note <Robert Martinez MD - Last Filed: 11/14/22 23:58> Discharge Plan Discharge Clinical Impression: Migraine <Usha Dorado CNP - Last Filed: 11/14/22 19:57> Patient Disposition: Home, Self-Care <Usha Dorado CNP - Last Filed: 11/14/22 19:57> Instructions: Migraine Headache (ED) <Usha Dorado CNP - Last Filed: 11/14/22 19:57> Additional Instructions: Your symptoms likely from complex migraine Rest at home Imitrex and Fioricet as advised for migraine headaches Follow-up with PCP if not better <Usha Dorado CNP - Last Filed: 11/14/22 19:57> Prescriptions: New sumatriptan succinate [Imitrex] 50 mg tablet 50 mg PO Q2H PRN (Reason: migraine headache) Qty: 10 0RF Rx Instructions: do not exceed 2 doses per 24 hrs [id number] [Fioricet] 50-300-40 mg capsule 1 cap PO Q6H PRN (Reason: headache) Qty: 20 0RF No Action Zyrtec 10 mg capsule 10 mg PO DAILY Qty: 14 0RF diphenhydramine HCl [Benadryl] 25 mg capsule 25 mg PO TID PRN (Reason: allergic reaction) Qty: 14 0RF <Usha Dorado, [employer] - Last Filed: 11/14/22 19:57>
--- NOTE | 2022-11-14 19:54 | ECG_ITS ---
Test Reason : dizzyness Blood Pressure : / mmHG Vent. Rate : 081 BPM Atrial Rate : 081 BPM P-R Int : 148 ms QRS Dur : 076 ms QT Int : 368 ms P-R-T Axes : 080 078 057 degrees QTc Int : 427 ms Normal sinus rhythm with sinus arrhythmia Normal ECG No previous ECGs available Referred By: Usha Dorado Electronically Signed By:Nathan Dorado
[2022-11-14 20:38] LABS: MANUAL DIFF FLAG NO
[2022-11-14 20:40] LABS: Basophils Absolute Auto 0.1 X10*3/uL (0.0-0.2); Basophils Percent Auto 0.8 % (0-2); Eosinophils Absolute Auto 0.1 X10*3/uL (0.0-0.4); Eosinophils Percent Auto 1.2 % (0-4); Hematocrit 34.5 % (37.0-47.0); Hemoglobin 11.7 g/dl (12.0-16.0); Imm Gran Abs Auto 0.02 X10*3/uL (0.00-0.03); Imm Gran Pct Auto 0.3 % (0.0-0.4); Lymphocytes Absolute Auto 2.6 X10*3/uL (1.2-4.9); Lymphocytes Percent Auto 39.2 % (20-40); Mean Corpuscular HGB Conc 33.9 g/dl (31.0-35.0); Mean Corpuscular Hemoglobin 29.9 pg (27.0-33.0); Mean Corpuscular Volume 88.2 fL (80.0-98.0); Monocytes Absolute Auto 0.6 X10*3/uL (0.1-1.2); Monocytes Percent Auto 9.8 % (2-11); Neutrophils Absolute Auto 3.2 x10*3/uL (2.0-8.3); Neutrophils Percent Auto 48.7 % (45-73); Platelet Count 254 X10*3/uL (160-400); Red Blood Count 3.91 X10*6/uL (4.20-5.50); Red Cell Distribution Width 12.6 % (11.0-16.0); White Blood Count 6.6 X10*3/uL (4.8-10.8)
[2022-11-14 20:42] LABS: Appearance Urine Cloudy; Color Urine Yellow; Glucose Urine UA Negative (Negative); Leukocyte Esterase Urine Negative (Negative); Nitrite Urine Negative (Negative); PH 7.5 (5.0-9.0); Specific Gravity - Urine 1.025 (1.005-1.025); Urine Blood Negative (Negative); Urine Ketones Negative (Negative); Urine Protein Negative (Neg-Trace)
[2022-11-14 20:44] LABS: UPreg QC Valid YES; Urine Pregnancy NEGATIVE (NEGATIVE)
[2022-11-14 20:46] LABS: Prothrombin Time 11.7 SEC (10.0-13.1)
[2022-11-14 20:55] LABS: Alanine Aminotransferase 6 U/L (0-31); Albumin Level 4.6 g/dL (3.5-5.0); Alkaline Phosphatase 94 U/L (39-117); Anion Gap 15 (12-20); Aspartate Amino Transferase 18 U/L (5-31); Bilirubin Total 0.5 mg/dL (0.0-1.0); Blood Urea Nitrogen 15 mg/dL (9-16); Calcium 10.1 mg/dL (8.4-10.2); Carbon Dioxide 22 mmol/L (22-29); Chloride 106 mmol/L (96-108); Creatinine Clr Calc Pharmacy 76.5; Estimated Glomerular Filt Rate > 60; Glucose Random 90 mg/dL (60-115); Lipase 24 U/L (8-78); Potassium 3.8 mmol/L (3.3-5.1); Sodium 139 mmol/L (135-145); Total Protein 6.9 g/dL (6.5-8.0)
[2022-11-14 20:56] LABS: COVID-19 Test Negative (Negative); IDNOW Serial# 16C4AD1C
[2022-11-14 20:57] LABS: IDNOW Serial# 9DB6401D; Influenza A Negative (Negative); Influenza B2 Negative (Negative)
[2022-11-14 21:07] LABS: Troponin-I High Sensitivity < 3.5 ng/L (<3.5-17.0)
[2022-11-14 22:21] VITALS: BP 125/78; PULSE 78; RESP 18; TEMP 36.6; O2SAT 98
[2022-11-14] MEDS: SUMAtriptan succinate 6 MG/0.5 ML VIAL SUBCUT (23:58)
[2022-11-15 00:01] VITALS: BP 131/76; PULSE 82; RESP 18; TEMP 36.7; O2SAT 98
== END 2022-11-15 00:11 | disposition home or self-care (01) ==
PROVIDERS: Nurse Practitioner Family; Emergency Provider Internal Medicine; PCP Internal Medicine
DX: G43.909 Migraine, unspecified, not intractable, without status migrainosus (principal); R42 Dizziness and giddiness; F41.1 Generalized anxiety disorder; F43.0 Acute stress reaction; M79.10 Myalgia, unspecified site; Z20.822 Contact with and (suspected) exposure to COVID-19; Z20.828 Contact with and (suspected) exposure to other viral communicable diseases; Z79.899 Other long term (current) drug therapy
CPT/HCPCS: 80053; 81003; 81025; 83690; 83735; 84484; 85025; 85610; 87502; 87635; 93005; 96372; 99284; J3030

== ENCOUNTER 2023-02-06 16:55 | Outpatient (REF) | payer OTHER, SELFPAY ==
--- NOTE | ~2023-02-06 | XR_ITS ---
EXAMINATION: XR CHEST CLINICAL INFORMATION: Shortness of breath COMPARISON: None available. TECHNIQUE: 2 views of the chest were obtained. FINDINGS: No significant abnormality is noted involving the heart, lungs, mediastinum, bony thorax or soft tissues. XR/XR chest 2V IMPRESSION: Unremarkable examination.
== END 2023-02-06 16:56 | disposition home or self-care (01) ==
LOC: HO.HMGCX 16:55
PROVIDERS: PCP Internal Medicine; Visit Provider Internal Medicine
DX: R06.02 Shortness of breath (principal)
CPT/HCPCS: 71046

== ENCOUNTER 2023-03-28 16:19 | Emergency (ER) | payer OTHER, SELFPAY ==
--- NOTE | ~2023-03-28 | CT_ITS ---
EXAMINATION: CT abdomen pelvis wo IV con CLINICAL INFORMATION: Reason for Exam flank pain, hematuria COMPARISON: No prior CT available for comparison. TECHNIQUE: Multidetector volumetric imaging was performed from the superior aspect of the liver through the pubic symphysis , noncontrasted study. Sagittal and coronal reformatted images were obtained on the technologist's workstation. This CT examination was performed using dose optimization techniques as appropriate, variously including the following: *Automated exposure control *Adjustment of mA and/or kV according to patient size (this includes techniques or standardized protocols for targeted exams where dose is matched to indication/reason for exam; i.e. extremities or head) *Use of iterative reconstruction technique DLP: 303 mGy-cm FINDINGS: LOWER THORAX: Included lung bases are clear. HEPATOBILIARY: No focal hepatic lesions. No biliary ductal dilatation. GALLBLADDER: Gallbladder unremarkable. SPLEEN: Spleen is normal in size. PANCREAS: No focal mass or ductal dilatation. STOMACH AND GASTROINTESTINAL TRACT: Stomach is grossly unremarkable. There is no bowel distention or thickening. No CT evidence of appendicitis. ADRENALS: No adrenal nodules. KIDNEYS/URETERS: Mild hyperdense material in the renal collecting system bilaterally suggesting nephrocalcinosis, no CT evidence of obstructing kidney stone or hydronephrosis. Perinephric fat are clear. Ureter is normal in size. URINARY BLADDER: Partially decompressed. PELVIC VISCERA: Unremarkable PERITONEUM: No free air or fluid. LYMPH NODES: No lymphadenopathy. VASCULAR:Abdominal aorta normal in size, no aneurysm found. BONES, ABDOMINAL WALL AND SOFT TISSUES: Age-appropriate changes of the spine and skeletal system, no destructive osteolytic or osteosclerotic bone lesion found CT/CT abdomen pelvis wo IV con IMPRESSION: * Mild hyperdense material in the renal collecting system bilaterally suggesting nephrocalcinosis. No CT evidence of obstructing kidney stone or hydronephrosis. * No CT evidence of acute intra-abdominal process to explain patient's pain symptoms.
--- NOTE | ~2023-03-28 | XR_ITS ---
EXAMINATION: XR chest 2V CLINICAL INFORMATION: Reason for Exam cough COMPARISON: No prior chest x-ray available in our system for comparison at the time of this dictation. TECHNIQUE: XR chest 2V Lungs and Alannah: Both lungs are clear. Pleura: Normal. Costophrenic angles are sharp. No pneumothorax. Heart: The heart is normal in size. Mediastinum: The mediastinum is within normal limits.. Bones: Skeletal structures included are normal for patient's age. XR/XR chest 2V IMPRESSION: Normal chest x-ray.
--- NOTE | 2023-03-28 16:24 | ECG_ITS ---
Test Reason : chest pain Blood Pressure : / mmHG Vent. Rate : 095 BPM Atrial Rate : 095 BPM P-R Int : 146 ms QRS Dur : 070 ms QT Int : 348 ms P-R-T Axes : 082 073 040 degrees QTc Int : 437 ms Normal sinus rhythm Biatrial enlargement Nonspecific ST abnormality Abnormal ECG When compared with ECG of 14-NOV-2022 20:18, No significant change was found Referred By: Brianna Dela Cruz Electronically Signed By:Nathan Dorado
--- NOTE | 2023-03-28 16:34 | MHC.EDTECH ---
PATIENT EKG DONE AND WAS READ BY PROVIDER .
[2023-03-28 16:41] VITALS: BP 135/66; PULSE 107; RESP 18; TEMP 36.9; O2SAT 96; BMI 21.0
--- NOTE | 2023-03-28 16:42 | ED_ITS ---
HPI - General Adult General Chief complaint: General Medical Stated complaint: Chest Pain/d/n/headache Time Seen by Provider: 03/28/23 18:02 Source: patient, RN notes reviewed and old records reviewed Mode of arrival: ambulatory Limitations: no limitations History of Present Illness HPI narrative: A 27-year-old female presents for evaluation of multiple complaints. She complains of cough x2 weeks, sore throat. She also complains of bilateral flank pain. She has burning with urination and urinary frequency She complains of mild to moderate pain currently her pain is a 4/10. Denies any fevers, chills, She reports chest pain with palpitations starting today. Denies any history of cardiac disease She reports that she is not due for her menstrual cycle for 7 days Related Data Previous Rx's Medication Instructions Recorded cetirizine 10 mg capsule (Zyrtec) 10 mg PO DAILY #14 caps 11/05/22 diphenhydramine HCl 25 mg capsule 25 mg PO TID PRN allergic reaction 11/05/22 (Benadryl) #14 caps sumatriptan succinate 50 mg tablet 50 mg PO Q2H PRN migraine headache 11/14/22 (Imitrex) #10 tabs prednisone 20 mg tablet 60 mg PO DAILY #9 tabs 02/06/23 amoxicillin 250 mg-potassium 10 ml PO Q8H 7 days #210 mL 03/28/23 clavulanate 62.5 mg/5 mL oral suspension (Augmentin) Allergies Allergy/AdvReac Type Severity Reaction Status Date / Time shrimp Allergy Facial Verified 03/28/23 16:44 Swelling Review of Systems Constitutional: Constitutional: Reports as per HPI, Denies chills and Denies fever(s) ENT: Reports sore throat Cardiovascular: Cardiovascular: Reports chest pain, Reports chest pain at rest and Denies dyspnea Respiratory: Respiratory: Reports cough and Denies dyspnea Gastrointestinal: Gastrointestinal: Reports abdominal pain, Denies constipation and Denies vomiting Genitourinary: Genitourinary: Reports dysuria Musculoskeletal: Musculoskeletal: Reports myalgias Integumentary/Breasts: Skin/Breast: Denies rash Neurologic: Denies focal weakness PMFSH Past Medical History Medical History Annual physical exam Chronic headaches Chronic lower back pain Eczema Knee pain Sore throat Weight loss Surgical History History of hernia repair Family History Family History Father Medical history non-contributory Mother HTN (hypertension) Maternal Grandfather Unknown family medical history Maternal Grandmother Unknown family medical history Paternal Grandmother No problems noted. Paternal Grandfather Unknown family medical history Brother No problems noted. Sister No problems noted. 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: House Alcohol intake: never Patient Tobacco Use Status: Never used Tobacco e-Cigarette/Vaping Use: Never Used Advance Directives: No Advance Directives Information Provided: No Current occupational status: employed Cognitive needs: No Hearing needs: No Vision needs: Yes Physical Exam ED Vital Signs: Vital Signs - 24 hr 03/28/23 16:41 Temperature 98.4 F Pulse Rate 107 H Respiratory Rate 18 Blood Pressure 135/66 Pulse Oximetry 96 Oxygen Delivery Method Room Air BMI result Body Mass Index 21.0 Const General: healthy appearing, comfortable, no acute distress, alert and awake Nutritional Appearance: well nourished Orientation/consciousness: patient oriented x3 HENMT Head: Yes normocephalic and Yes atraumatic Throat: Yes posterior oropharynx normal Eyes Eyelids: Yes eyelids normal Conjunctivae: conjunctivae normal Sclerae: sclerae normal Corneas: corneas normal Pupils: Equal, round and reactive pupils present EOM: EOMs intact bilaterally Neck Neck: Yes full ROM Resp Effort & Inspection: normal respiratory effort, able to speak in complete sentences, no audible wheezes and not labored Auscultation: clear to auscultation bilaterally Cardio Rate: regular rate Rhythm: regular rhythm GI Inspection: No distended Palpation (GI): Soft to palpation, not firm, nontender, no guarding and not rigid Auscultation: normoactive bowel sounds General: Yes no CVA tenderness Back/Spine/Pelvis Back: no CVA tenderness Skin General skin exam: no rashes or lesions noted and elasticity normal Neuro General: patient oriented x3 Cranial nerves: Yes Equal, round and reactive pupils present and Yes Bilaterally intact EOM present Cognition (Neuro): normal cognition Extrem Other: Moving all extremities well without any obvious deformities Course Course Course Narrative: RME: 27yo F w/PMHx chronic SINGH's, c/o watery nonbloody diarrhea x 5 episodes, nausea, low back pain, chest pain, palpitations and SINGH x today. denies abdominal pain, vomiting, SOB at present Admits tested negative for COVID/FLU/RSV on Sunday EKG, labs, UA ordered Full HPI, ROS and PE to be performed by primary ED provider. Reevaluation(s) Reevaluation #1: Patient's CT scan does not show any explanation for hematuria. However she may follow-up with the primary doctor. We will treat her symptoms with Augmentin. This will cover upper respiratory phuc as well as urine floor even though her urine does not show acute infection. The patient is requesting liquid form if she cannot swallow pills Medical Decision Making Medical Decision Making [facility] Narrative: 27-year-old female presents for evaluation of multiple complaints. She complains of cough, sore throat, chest pain, more recently a flank pain, diarrhea and dysuria. Her workup is significant for leukocytosis of 12.2 with a left shift chemistries without any concerning abnormalities. She does have blood in her urine but no evidence of UTI and she has no bacteria present. Given the leukocytosis, cough x2 weeks with a chest x-ray to rule out pneumonia. Given the blood in the urine and the fact that she is not amount to cycle and no sign of UTI with a CT scan to evaluate for obstructive uropathy as the patient does have flank pain. Differential Diagnosis Differential Diagnoses: The differential diagnosis associated with the presentation includes Viral syndrome Upper respiratory infection Pneumonia Bronchitis Chest pain ACS UTI Obstructive uropathy Gastroenteritis Lab Data [facility] Lab Attestation statement: I reviewed the patient's lab results. ( Leukocytosis of 12.2 with a left shift. Electrolytes within normal limits, renal function is within normal limits. Troponin negative) 03/28/23 17:15 03/28/23 17:15 Labs: Lab Results 03/28/23 03/28/23 03/28/23 Range/Units 17:15 17:15 17:15 WBC 12.2 H (4.8-10.8) X10*3/uL RBC 4.04 L (4.20-5.50) X10*6/uL Hgb 11.9 L (12.0-16.0) g/dl Hct 35.6 L (37.0-47.0) % MCV 88.1 (80.0-98.0) fL MCH 29.5 (27.0-33.0) pg MCHC 33.4 (31.0-35.0) g/dl RDW 12.2 (11.0-16.0) % Plt Count 264 (160-400) X10*3/uL MPV 9.7 (9.4-12.3) fL Immature Gran % (Auto) 0.3 (0.0-0.4) % Neut % (Auto) 81.5 H (45-73) % Lymph % (Auto) 12.3 L (20-40) % Oliver % (Auto) 4.9 (2-11) % Eos % (Auto) 0.2 (0-4) % Baso % (Auto) 0.8 (0-2) % Lymph # (Auto) 1.5 (1.2-4.9) X10*3/uL Oliver # (Auto) 0.6 (0.1-1.2) X10*3/uL Eos # (Auto) 0.0 (0.0-0.4) X10*3/uL Baso # (Auto) 0.1 (0.0-0.2) X10*3/uL Abs Immat Gran (auto) 0.04 H (0.00-0.03) X10*3/uL Absolute Neuts (auto) 9.9 H (2.0-8.3) x10*3/uL Absolute Nucleated RBC 0.000 (0.0-0.012) X10*3/uL Nucleated RBC % (auto) 0.0 (0.0-0.2) /100WBC Sodium 138 (135-145) mmol/L Potassium 3.9 (3.3-5.1) mmol/L Chloride 108 (96-108) mmol/L Carbon Dioxide 21 L (22-29) mmol/L Anion Gap 13 (12-20) BUN 7 L (9-16) mg/dL Creatinine 0.63 (0.5-1.4) mg/dL Estim Creat Clear Calc 92.2 Estimated GFR > 60 Random Glucose 85 (60-115) mg/dL Calcium 10.6 H (8.4-10.2) mg/dL Magnesium 2.0 (1.6-2.6) mg/dL Total Bilirubin 0.7 (0.0-1.0) mg/dL Direct Bilirubin 0.2 (0.0-0.5) mg/dL AST 18 (5-31) U/L ALT 5 (0-31) U/L Alkaline Phosphatase 86 (39-117) U/L Troponin I High Sens < 2.7 (<3.5-17.0) ng/L Total Protein 7.8 (6.5-8.0) g/dL Albumin 4.7 (3.5-5.0) g/dL TSH 1.11 (0.32-4.0) uIU/mL Urine Color Urine Appearance Urine pH (5.0-9.0) Ur Specific [place] (1.005-1.025) Urine Protein (Neg-Trace) mg/dL Urine Glucose (UA) (Negative) mg/dL Urine Ketones (Negative) mg/dL Urine Blood (Negative) Urine Nitrite (Negative) Ur Leukocyte Esterase (Negative) Urine RBC (0-2) /HPF Urine WBC (0-5) /HPF Ur Squamous Epith Cells (0-2) /HPF Urine Bacteria (None Seen) Hyaline Casts (0-2) /LPF Urine Test (NEGATIVE) 03/28/23 03/28/23 Range/Units 17:15 17:16 WBC (4.8-10.8) X10*3/uL RBC (4.20-5.50) X10*6/uL Hgb (12.0-16.0) g/dl Hct (37.0-47.0) % MCV (80.0-98.0) fL MCH (27.0-33.0) pg MCHC (31.0-35.0) g/dl RDW (11.0-16.0) % Plt Count (160-400) X10*3/uL MPV (9.4-12.3) fL Immature Gran % (Auto) (0.0-0.4) % Neut % (Auto) (45-73) % Lymph % (Auto) (20-40) % Oliver % (Auto) (2-11) % Eos % (Auto) (0-4) % Baso % (Auto) (0-2) % Lymph # (Auto) (1.2-4.9) X10*3/uL Oliver # (Auto) (0.1-1.2) X10*3/uL Eos # (Auto) (0.0-0.4) X10*3/uL Baso # (Auto) (0.0-0.2) X10*3/uL Abs Immat Gran (auto) (0.00-0.03) X10*3/uL Absolute Neuts (auto) (2.0-8.3) x10*3/uL Absolute Nucleated RBC (0.0-0.012) X10*3/uL Nucleated RBC % (auto) (0.0-0.2) /100WBC Sodium (135-145) mmol/L Potassium (3.3-5.1) mmol/L Chloride (96-108) mmol/L Carbon Dioxide (22-29) mmol/L Anion Gap (12-20) BUN (9-16) mg/dL Creatinine (0.5-1.4) mg/dL Estim Creat Clear Calc Estimated GFR Random Glucose (60-115) mg/dL Calcium (8.4-10.2) mg/dL Magnesium (1.6-2.6) mg/dL Total Bilirubin (0.0-1.0) mg/dL Direct Bilirubin (0.0-0.5) mg/dL AST (5-31) U/L ALT (0-31) U/L Alkaline Phosphatase (39-117) U/L Troponin I High Sens (<3.5-17.0) ng/L Total Protein (6.5-8.0) g/dL Albumin (3.5-5.0) g/dL TSH (0.32-4.0) uIU/mL Urine Color Yellow Urine Appearance Clear Urine pH 5.5 (5.0-9.0) Ur Specific [place] >= 1.030 H (1.005-1.025) Urine Protein 30 (1+) H (Neg-Trace) mg/dL Urine Glucose (UA) Negative (Negative) mg/dL Urine Ketones 40 (Negative) mg/dL Urine Blood Trace H (Negative) Urine Nitrite Negative (Negative) Ur Leukocyte Esterase Negative (Negative) Urine RBC 11-20 H (0-2) /HPF Urine WBC 0-5 (0-5) /HPF Ur Squamous Epith Cells 3-5 (0-2) /HPF Urine Bacteria None Seen (None Seen) Hyaline Casts 3-5 (0-2) /LPF Urine Test NEGATIVE (NEGATIVE) Independent Interpretation I performed an independent interpretation of an: EKG (Sinus rhythm with a rate of 95 beats per minute. No ST segment elevations or depressions. No ectopy) and Plain X-Ray (Chest x-ray without acute pathology. No infiltrates or effusions) Radiology Impression Discussion of test interpretation with radiology: I have reviewed the radiologist's reading. (No acute intra-abdominal pathology) Discharge Plan Discharge Clinical Impression: Acute upper respiratory infection Patient Disposition: Home, Self-Care Additional Instructions: Your workup in the emergency department today was reassuring. You did have a slightly elevated white blood cell count of 12.2k This can sometimes indicate an infection Your chest x-ray was clear, your urine sample did not show any sign of infection However given your symptoms persistent, take the Augmentin 3 times daily for 7 days Follow-up with your primary doctor Prescriptions: New amoxicillin-pot clavulanate [Augmentin] 250-62.5 mg/5 mL suspension for reconstitution 10 ml PO Q8H 7 Days Qty: 210 0RF No Action Zyrtec 10 mg capsule 10 mg PO DAILY Qty: 14 0RF diphenhydramine HCl [Benadryl] 25 mg capsule 25 mg PO TID PRN (Reason: allergic reaction) Qty: 14 0RF sumatriptan succinate [Imitrex] 50 mg tablet 50 mg PO Q2H PRN (Reason: migraine headache) Qty: 10 0RF Rx Instructions: do not exceed 2 doses per 24 hrs prednisone 20 mg tablet 60 mg PO DAILY Qty: 9 0RF Stand Alone Forms: Work/School Release
--- NOTE | 2023-03-28 17:18 | MHC.EDTECH ---
PATIENT BLOOD DRAWN AND URINE SAMPLE COLLECTED AND SENT TO LAB .
[2023-03-28 17:21] LABS: MANUAL DIFF FLAG NO
[2023-03-28 17:23] LABS: Basophils Absolute Auto 0.1 X10*3/uL (0.0-0.2); Basophils Percent Auto 0.8 % (0-2); Eosinophils Percent Auto 0.2 % (0-4); Hematocrit 35.6 % (37.0-47.0); Hemoglobin 11.9 g/dl (12.0-16.0); Imm Gran Abs Auto 0.04 X10*3/uL (0.00-0.03); Imm Gran Pct Auto 0.3 % (0.0-0.4); Lymphocytes Absolute Auto 1.5 X10*3/uL (1.2-4.9); Lymphocytes Percent Auto 12.3 % (20-40); Mean Corpuscular HGB Conc 33.4 g/dl (31.0-35.0); Mean Corpuscular Hemoglobin 29.5 pg (27.0-33.0); Mean Corpuscular Volume 88.1 fL (80.0-98.0); Mean Platelet Volume 9.7 fL (9.4-12.3); Monocytes Absolute Auto 0.6 X10*3/uL (0.1-1.2); Monocytes Percent Auto 4.9 % (2-11); Neutrophils Absolute Auto 9.9 x10*3/uL (2.0-8.3); Neutrophils Percent Auto 81.5 % (45-73); Platelet Count 264 X10*3/uL (160-400); Red Blood Count 4.04 X10*6/uL (4.20-5.50); Red Cell Distribution Width 12.2 % (11.0-16.0); White Blood Count 12.2 X10*3/uL (4.8-10.8)
[2023-03-28 17:25] LABS: Appearance Urine Clear; Color Urine Yellow; Glucose Urine UA Negative (Negative); Leukocyte Esterase Urine Negative (Negative); Nitrite Urine Negative (Negative); PH 5.5 (5.0-9.0); Specific Gravity - Urine >= 1.030 (1.005-1.025); UMIC TRIGGER UACC YES; Urine Blood Trace (Negative); Urine Ketones 40 mg/dL (Negative); Urine Protein 30 (1+) mg/dL (Neg-Trace)
[2023-03-28 17:29] LABS: UPreg QC Valid YES; Urine Pregnancy NEGATIVE (NEGATIVE)
[2023-03-28 17:32] LABS: Bacteria Urine None Seen (None Seen); WBC Urine 0-5 /HPF (0-5)
[2023-03-28 17:57] LABS: Alanine Aminotransferase 5 U/L (0-31); Albumin Level 4.7 g/dL (3.5-5.0); Alkaline Phosphatase 86 U/L (39-117); Anion Gap 13 (12-20); Aspartate Amino Transferase 18 U/L (5-31); Bilirubin Direct 0.2 mg/dL (0.0-0.5); Bilirubin Total 0.7 mg/dL (0.0-1.0); Blood Urea Nitrogen 7 mg/dL (9-16); Calcium 10.6 mg/dL (8.4-10.2); Carbon Dioxide 21 mmol/L (22-29); Chloride 108 mmol/L (96-108); Creatinine Clr Calc Pharmacy 92.2; Estimated Glomerular Filt Rate > 60; Glucose Random 85 mg/dL (60-115); Potassium 3.9 mmol/L (3.3-5.1); Sodium 138 mmol/L (135-145); Total Protein 7.8 g/dL (6.5-8.0); Troponin-I High Sensitivity < 2.7 ng/L (<3.5-17.0)
[2023-03-28 18:03] LABS: TSH reflex Free T4 1.11 uIU/mL (0.32-4.0)
== END 2023-03-28 20:25 | disposition home or self-care (01) ==
PROVIDERS: Physician Assistant; Emergency Provider Student in an Organized Health Care Education/Training Program; PCP Internal Medicine
DX: J06.9 Acute upper respiratory infection, unspecified (principal); R05.9 Cough, unspecified
CPT/HCPCS: 36415; 71046; 74176; 80048; 80076; 81001; 81025; 83735; 84443; 84484; 85025; 93005; 99283; 99284

== ENCOUNTER 2023-04-19 11:28 | Outpatient (AMB) | payer OTHER, SELFPAY ==
--- NOTE | 2023-04-19 11:37 | A.OFFPC_ITS ---
Vital Signs 04/19/23 11:38 Height 4 ft 11 in Weight 104 lb BMI 21.0 BP 106/62 Blood Pressure Location Lt brachial Position Sitting Pulse 72 Pulse Source Pulse Oximeter Pulse Oximetry (%) 100 Oxygen Delivery Method Room Air Intake Visit Reasons: Physical Intake Note: Pt is here today for PE. Allergies shrimp Allergy (Verified 04/19/23 11:41) Facial Swelling Medication List - Last Reconciled 04/19/23 by Amrita Elise MD diphenhydramine HCl (Benadryl) 25 mg PO TID PRN sumatriptan succinate (Imitrex) 50 mg PO Q2H PRN Tobacco use date assessed: 04/19/23 Dental Screening Dental Screen Date: 04/19/23 Did you have a dental visit in the last 12 months?: Yes Did you have a dental problem in the last 6 months where you did not have access to dental care?: No Was dental information given to patient?: Patient has dentist HPI Physical HPI Details Pt presents for PE. Patient needs a referral to hand surgeon for persistent left wrist synovial cyst. [facility] Medical History Annual physical exam Chronic headaches Chronic lower back pain Eczema Knee pain Sore throat Weight loss Surgical History History of hernia repair Family History Father Medical history non-contributory Mother HTN (hypertension) Maternal Grandfather Unknown family medical history Maternal Grandmother Unknown family medical history Paternal Grandmother No problems noted. Paternal Grandfather Unknown family medical history Brother No problems noted. Sister No problems noted. 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 1. Little interest or pleasure in doing things: not at all 2. Feeling down, depressed, or hopeless: not at all 3. Trouble falling or staying asleep, or sleeping too much: not at all 4. Feeling tired or having little energy: not at all 5. Poor appetite or overeating: not at all 6. Feeling bad about yourself - or that you are a failure or have let yourself or your family down: not at all 7. Trouble concentrating on things, such as reading the newspaper or watching television: not at all 8. Moving or speaking so slowly that other people could have noticed. Or the opposite - being so fidgety or restless that you have been moving around a lot more than usual: not at all 9. Thoughts that you would be better off or of hurting yourself in some way: not at all Total score: 0 Depression Screening Interpretation: Negative Source: Developed by Drs. Alfredo Thurston, Blanca Gibbs, Amilcar Henao and colleagues, with an educational shira from [employer]. Thrive Questionnaire Date Thrive assessed: 04/19/23 I am a: Patient What is your living situation today?: I have a steady place to live Within the past 12 months, did the food you bought not last and you didn't have the money to get more?: Never true Within the past 12 months, did you worry whether your food would run out before you got money to buy more?: Never true Do you have trouble paying for medicines?: No Do you have trouble getting transportation to medical appointments?: No Do you have trouble paying your heating and electricity bill?: No Do you have trouble taking care of your child, family member or friend?: No Do you have trouble with day-to-day activities such as bathing, preparing meals, shopping, managing finances, etc.?: No Are you currently unemployed and looking for a job?: No Are you interested in more education?: No Please select the resources that you would like help with: None Currently or been in a relationship where the following occur: no concerns reported AUDIT C Alcohol Use Questionnaire (AUDIT-C) 1. How often do you have a drink containing alcohol?: Never 3. How often do you have six or more drinks on one occasion?: Never Total Score: 0 ROGELIO-7 AMB Questionnaire ROGELIO-7 Date ROGELIO - 7 assessed: 04/19/23 Feeling nervous, anxious, or on edge: 0 = Not at all Not being able to stop or control worryin = Not at all Worrying too much about different things: 0 = Not at all Trouble relaxin = Not at all Being so restless that it is hard to sit still: 0 = Not at all Becoming easily annoyed or irritable: 0 = Not at all Feeling afraid as if something awful might happen: 0 = Not at all Total ROGELIO-7 score (0-4 normal; 5-9 mild; 10-14 moderate; 15-21 severe): 0 Source: Developed by Drs. Alfredo Thurston, Blanca Gibbs, Amilcar Henao and colleagues, with an educational shira from [employer]. Review of Systems Const All systems reviewed & are unremarkable except as noted in HPI and below Reports no additional complaints Eyes Reports no additional complaints ENT Reports no additional complaints Card Reports no additional complaints Resp Reports no additional complaints GI Reports no additional complaints Reports no additional complaints Musc Reports no additional complaints Physical exam (Primary Care) Vital Signs: Last Vital Signs Pulse 72 04/19/23 11:38 BP 106/62 04/19/23 11:38 Pulse Ox 100 04/19/23 11:38 Oxygen Delivery Method Room Air 04/19/23 11:38 BMI result Body Mass Index 21.0 Tobacco/Smoking Status: Tobacco use Status Tobacco use date assessed 04/19/23 04/19/23 11:44 Patient Tobacco Use Status Never used Tobacco 04/19/23 11:44 e-Cigarette/Vaping Use Never Used 04/19/23 11:44 PHQ-9: PHQ-9 Score PHQ-9: Total score 0 04/19/23 11:44 Depression Screening Interpretation: Negative Thrive Assessment: Date of Thrive Assessment Date Thrive assessed 04/19/23 04/19/23 11:44 Currently or been in a relationship where the following occur: no concerns reported Const General: no acute distress HENMT Head: Yes normal to inspection Ears: hearing grossly normal bilaterally Mouth: Normal oral and palatal mucosa present Throat: Yes posterior oropharynx normal Eyes General: appearance normal, both eyes and all related structures Neck Neck: Yes no lymphadenopathy and Yes supple Resp Effort & Inspection: normal respiratory effort Auscultation: clear to auscultation bilaterally Cardio Rhythm: regular rhythm Heart sounds: S1 normal heart sound present and S2 normal heart sound present GI Inspection: Yes normal to inspection Palpation (GI): Soft to palpation Percussion: Yes normal to percussion Auscultation: normal bowel sounds Assessment and Plan Assessment & Plan (1) Synovial cyst of hand: Code(s): M71.349 - Other bursal cyst, unspecified hand Plan: Referred to hand surgeon (2) Annual physical exam: Code(s): Z00.00 - Encounter for general adult medical examination without abnormal findings Plan: well balanced diet and regular physical activity discussed with the patient. (3) Normal pelvic exam: Comment: [facility] veterinary bacteriologist Code(s): Z01.419 - Encounter for gynecological examination (general) (routine) without abnormal findings Orders: Orders IRON PROFILE Today Z00.00 - Encounter for general adult medical examination without abnormal findings Complete Blood Count Auto Diff Today Z00.00 - Encounter for general adult medical examination without abnormal findings TSH reflex Free T4 Today Z00.00 - Encounter for general adult medical examination without abnormal findings Referrals Hand Surgery Referral M71.349 - Other bursal cyst, unspecified hand Coding Level of Care Code Est Pt Prev Care 18-39y([id number]) Diagnoses Synovial cyst of hand M71.349 Annual physical exam Z00.00 Normal pelvic exam Z01.419
[2023-04-19 11:38] VITALS: BP 106/62; PULSE 72; O2SAT 100; BMI 21.0
== END 2023-04-19 12:31 | disposition home or self-care (01) ==
PROVIDERS: Visit Provider Internal Medicine
DX: Z00.00 Encounter for general adult medical examination without abnormal findings (principal); M71.349 Other bursal cyst, unspecified hand
CPT/HCPCS: 99395

== ENCOUNTER 2023-04-19 12:17 | Outpatient (REF) | payer OTHER, SELFPAY ==
[2023-04-19 16:09] LABS: MANUAL DIFF FLAG NO
[2023-04-19 16:15] LABS: Basophils Absolute Auto 0.1 X10*3/uL (0.0-0.2); Basophils Percent Auto 1.6 % (0-2); Eosinophils Absolute Auto 0.1 X10*3/uL (0.0-0.4); Eosinophils Percent Auto 2.1 % (0-4); Hematocrit 36.1 % (37.0-47.0); Hemoglobin 11.4 g/dl (12.0-16.0); Imm Gran Abs Auto 0.01 X10*3/uL (0.00-0.03); Imm Gran Pct Auto 0.2 % (0.0-0.4); Lymphocytes Absolute Auto 1.4 X10*3/uL (1.2-4.9); Lymphocytes Percent Auto 27.9 % (20-40); Mean Corpuscular HGB Conc 31.6 g/dl (31.0-35.0); Mean Corpuscular Hemoglobin 28.9 pg (27.0-33.0); Mean Corpuscular Volume 91.4 fL (80.0-98.0); Mean Platelet Volume 10.9 fL (9.4-12.3); Monocytes Absolute Auto 0.5 X10*3/uL (0.1-1.2); Monocytes Percent Auto 11.1 % (2-11); Neutrophils Absolute Auto 2.8 x10*3/uL (2.0-8.3); Neutrophils Percent Auto 57.1 % (45-73); Platelet Count 244 X10*3/uL (160-400); Red Blood Count 3.95 X10*6/uL (4.20-5.50); Red Cell Distribution Width 12.4 % (11.0-16.0); White Blood Count 4.9 X10*3/uL (4.8-10.8)
[2023-04-19 16:42] LABS: Iron 63 mcg/dL (30-160); Percent Iron Saturation 23 % (15-50); Total Iron Binding Capacity 272 mcg/dL (228-428); Unsaturated Iron Binding 209 ug/dL
== END 2023-04-19 12:18 | disposition home or self-care (01) ==
LOC: HO.HMGCLDS 12:17
PROVIDERS: PCP Internal Medicine; Visit Provider Internal Medicine
DX: Z00.00 Encounter for general adult medical examination without abnormal findings (principal)
CPT/HCPCS: 36415; 83540; 85025

== ENCOUNTER 2023-06-05 13:43 | Outpatient (AMB) | payer OTHER, SELFPAY ==
--- NOTE | 2023-06-05 13:59 | A.OFFVIS_ITS ---
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 States she has lump since 2019, had it drain in 2019 and came back about 1.5 yrs. Currently states this cause her discomfort and a little pain with pinky and ring finger movement. States at times she has numbness in her pinky and ring finger especially at night time. 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 She complains of a painful mass on the back of her left wrist. She says this causes her pain with wrist, small finger, and ring finger motion. She says this first appeared in 2019, and she had it drained at an outside clinic. She says this returned ~1 year after it was drained and has been present since. She says this changes in size. She complains of intermittent and occasional numbness in her hands. 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 [facility] Medical History Annual physical exam Chronic headaches Chronic lower back pain Eczema Knee pain Sore throat Weight loss Surgical History History of hernia repair Family History Father Medical history non-contributory Mother HTN (hypertension) Maternal Grandfather Unknown family medical history Maternal Grandmother Unknown family medical history Paternal Grandmother No problems noted. Paternal Grandfather Unknown family medical history Brother No problems noted. Sister No problems noted. 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 Cognitive needs: No Hearing needs: No Vision needs: Yes Review of Systems Const All systems reviewed & are unremarkable except as noted in HPI and below Physical Exam Vital Signs: BMI result Body Mass Index 21.0 Const General: cooperative, healthy appearing and no acute distress Orientation/consciousness: patient oriented x3 HEENT Head: Yes normocephalic and Yes atraumatic Eyes EOM: EOMs intact bilaterally Resp Effort & Inspection: normal respiratory effort and able to speak in complete sentences Cardio Jugular venous distension: no JVD Skin General skin exam: turgor normal Rashes: no rashes Neuro General: patient oriented x3 Extrem Other: Evaluation of left Upper Extremity: The patient is alert, oriented, and in no acute distress Neuro: Median, Ulnar, Radial nerves motor and sensory intact and sensation is normal to the tips of all digits Vascular: Cap refill brisk ROM: She can make a fist and extend all her digits No locking or catching Skin: No lacerations or abrasions. General: No Ecchymosis. No Erythema or evidence of infection. There is a mass on the dorsal aspect of her wrist, in line with the dorsal central aspect of the wrist. This measures ~1.5 in diameter, is somewhat mobile. Psych Appearance: grossly normal Affect: normal affect Attitude: cooperative Assessment & Plan Assessment & Plan (1) Ganglion cyst of dorsum of left wrist: Code(s): M67.432 - Ganglion, left wrist Plan Assessment & Plan: 1. Left dorsal wrist ganglion cyst Measuring ~ 1.5 cm in diameter I educated her about this condition I discussed operative and non-operative treatment options The patient would like to proceed with surgery The risks and benefits of operative treatment were discussed with the patient and the patient wishes to proceed with surgery. These risks include, but are not limited to risk of damage to blood vessels, nerves, tendons, infection, recurrence, incomplete relief of preoperative symptoms, persistent pain, possible need for further surgery and the risks associated with regional blocks and anesthesia. The plan is to take the patient to the operating room sometime in the next few weeks for the following procedures: 1. Left dorsal wrist ganglion excision, under general All of the preoperative paperwork including the consent was filled out today. All the patient's questions were answered. 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 Coding Level of Care Code New Pt Level 4 (66737) Diagnoses Ganglion cyst of dorsum of left wrist M67.432
[2023-06-05 14:33] VITALS: BMI 21.0
== END 2023-06-05 14:44 | disposition home or self-care (01) ==
PROVIDERS: PCP Internal Medicine; Visit Provider Orthopaedic Surgery
DX: M67.432 Ganglion, left wrist (principal)
CPT/HCPCS: 99204

== ENCOUNTER → 2023-06-05 13:43 | Outpatient (BNVA) | payer OTHER, SELFPAY | PROVIDERS: PCP Internal Medicine; Visit Provider Orthopaedic Surgery | DX: M67.432 Ganglion, left wrist (principal) | CPT/HCPCS: 99202 ==

== ENCOUNTER 2023-06-19 10:12 | Outpatient (AMB) | payer OTHER, SELFPAY ==
--- NOTE | 2023-06-19 10:43 | MHC.OFFWIV ---
Intake Vital Signs 06/19/23 10:44 Height 4 ft 11 in Weight 105 lb BMI 21.2 BP 100/54 L Blood Pressure Location Rt brachial Position Sitting Pulse 78 Pulse Source Pulse Oximeter Temp 97.2 F Pulse Oximetry (%) 99 Oxygen Delivery Method Room Air Intake Visit Reasons: EST/ear pain Intake Note: Pt is here c/o left ear discomfort for two days. Patient Tobacco Use Status: Never used Tobacco Allergies shrimp Allergy (Verified 06/19/23 11:09) Facial Swelling Medication List - Last Reconciled 06/19/23 by Boni Kamara MD diphenhydramine HCl (Benadryl) 25 mg PO TID PRN sumatriptan succinate (Imitrex) 50 mg PO Q2H PRN Do you need a note to return to daycare/school/sports/work: No HPI EST/ear pain HPI Details Patient presents for a sick visit. Reporting symptoms of sinus congestion, sore throat and difficulty swallowing. Low-grade fever. No family member is sick. No recent travel. Patient reports symptoms of malaise and fatigue. [facility], [facility] Medical History Annual physical exam Chronic headaches Chronic lower back pain Eczema Knee pain Sore throat Weight loss Surgical History History of hernia repair Family History Father Medical history non-contributory Mother HTN (hypertension) Maternal Grandfather Unknown family medical history Maternal Grandmother Unknown family medical history Paternal Grandmother No problems noted. Paternal Grandfather Unknown family medical history Brother No problems noted. Sister No problems noted. 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 Cognitive needs: No Hearing needs: No Vision needs: Yes Physical Exam Vital Signs: Last Vital Signs Temp 97.2 F 06/19/23 10:44 Pulse 78 06/19/23 10:44 BP 100/54 L 06/19/23 10:44 Pulse Ox 99 06/19/23 10:44 Oxygen Delivery Method Room Air 06/19/23 10:44 BMI result Body Mass Index 21.2 Const General: cooperative and healthy appearing Nutritional Appearance: well nourished Orientation/consciousness: patient oriented x3 Limitations: no limitations HEENT Head: Yes normal to inspection Eyes General: appearance normal, both eyes and all related structures Neck Neck: Yes normal visual inspection Chest Chest palpation & inspection: normal palpation of entire chest wall Resp Effort & Inspection: normal respiratory effort Neuro General: patient oriented x3 Assessment & Plan Assessment & Plan (1) Upper respiratory tract infection: Code(s): J06.9 - Acute upper respiratory infection, unspecified Plan: Increase fluid intake. Tylenol for aches and pains. If symptoms worsen, follow-up here for a recheck. No antibiotics needed. Self-limiting viral illness. Coding Level of Care Code Est Pt Level 3 (52816) Diagnoses Upper respiratory tract infection J06.9
[2023-06-19 10:44] VITALS: BP 100/54; PULSE 78; TEMP 36.2; O2SAT 99; BMI 21.2
== END 2023-06-19 11:22 | disposition home or self-care (01) ==
PROVIDERS: PCP Internal Medicine; Visit Provider Internal Medicine
DX: J06.9 Acute upper respiratory infection, unspecified (principal)
CPT/HCPCS: 99213

== ENCOUNTER 2023-06-19 11:08 | Outpatient (REF) | payer OTHER, SELFPAY ==
[2023-06-19 14:21] LABS: TSH reflex Free T4 0.99 uIU/mL (0.32-4.0)
[2023-06-22 02:29] LABS: Immunoglobulin E 17 kU/L (<OR=114)
== END 2023-06-19 11:09 | disposition home or self-care (01) ==
LOC: HO.HMGCLDS 11:08
PROVIDERS: Absent Provider Nurse Practitioner Family; PCP Internal Medicine; Visit Provider Internal Medicine
DX: Z00.00 Encounter for general adult medical examination without abnormal findings (principal); L27.2 Dermatitis due to ingested food
CPT/HCPCS: 36415; 82785; 84443; 86003

== ENCOUNTER 2023-08-27 07:30 | Emergency (ER) | payer OTHER, SELFPAY ==
--- NOTE | 2023-08-27 07:39 | ECG_ITS ---
Test Reason : CHEST PAIN Blood Pressure : / mmHG Vent. Rate : 096 BPM Atrial Rate : 096 BPM P-R Int : 138 ms QRS Dur : 068 ms QT Int : 320 ms P-R-T Axes : 078 069 024 degrees QTc Int : 404 ms Normal sinus rhythm Biatrial enlargement Nonspecific T wave abnormality Abnormal ECG When compared with ECG of 28-MAR-2023 16:22, No significant change was found Referred By: Kevin Willis Electronically Signed By:ALETHEA HERNANDEZ MD
[2023-08-27 08:02] VITALS: BP 119/63; PULSE 92; RESP 15; TEMP 36.9; O2SAT 99; BMI 21.1
--- NOTE | 2023-08-27 08:20 | ED_ITS ---
HPI - Chest Pain General Chief Complaint: Chest Pain Stated Complaint: Body aches/Chest pain Time Seen by Provider: 08/27/23 07:31 Source: patient Mode of arrival: ambulatory Limitations: no limitations History of Present Illness HPI narrative: Fever, myalgias and headache for days Related Data Previous Rx's Medication Instructions Recorded diphenhydramine HCl 25 mg capsule 25 mg PO TID PRN allergic reaction 11/05/22 (Benadryl) #14 caps sumatriptan succinate 50 mg tablet 50 mg PO Q2H PRN migraine headache 11/14/22 (Imitrex) #10 tabs Allergies Allergy/AdvReac Type Severity Reaction Status Date / Time shrimp Allergy Facial Verified 08/27/23 08:12 Swelling Review of Systems 2 Review of Systems: Yes all other systems are reviewed and are negative Neurologic: Denies Sensory deficit (Neuro) [facility] Past Medical History Medical History Weight loss Annual physical exam Sore throat Knee pain Chronic lower back pain Chronic headaches Eczema Surgical History History of hernia repair Family History Family History Father Medical history non-contributory Mother HTN (hypertension) Maternal Grandfather Unknown family medical history Maternal Grandmother Unknown family medical history Paternal Grandmother No problems noted. Paternal Grandfather Unknown family medical history Brother No problems noted. Sister No problems noted. 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 Cognitive needs: No Hearing needs: No Vision needs: Yes Physical Exam 2 Vital Signs: Vital Signs: Last Vital Signs Temp 98.4 F 08/27/23 08:02 Pulse 92 08/27/23 08:02 Resp 15 08/27/23 08:02 BP 119/63 08/27/23 08:02 Pulse Ox 99 08/27/23 08:02 O2 Del Method Room Air 08/27/23 08:02 BMI result Body Mass Index 21.1 Const: General: healthy appearing Nutritional Appearance: average body habitus Orientation/consciousness: oriented to person and patient oriented x3 Limitations: no limitations HEENT: Head: Yes normal to inspection Ears: external ears normal General nose exam: Normal external nose present Mouth: Normal oral and palatal mucosa present and oropharynx normal Throat: Yes posterior oropharynx normal Eyes: General: appearance normal, both eyes and all related structures Neck: Other: supple Neck: Yes normal visual inspection Chest: Chest palpation & inspection: normal inspection of the chest Resp: Auscultation: clear to auscultation bilaterally Cardio: Jugular venous distension: no JVD Rate: regular rate Rhythm: r egular rhythm Heart sounds: S1 normal heart sound present and S2 normal heart sound present GI: Inspection: Yes normal to inspection Palpation (GI): Soft to palpation, nontender and No hepatosplenomegaly present Auscultation: normal bowel sounds : General: Yes no CVA tenderness Back/Spine/Pelvis: Back: no CVA tenderness Skin: General skin exam: no rashes or lesions noted Neuro: General: oriented to person and patient oriented x3 Cranial nerves: Yes CN's II-XII intact bilaterally Motor exam (neuro): 5/5 motor strength present throughout Sensory Exam: No Sensory deficit (Neuro) Extrem: General: Yes normal to inspection Psych: Appearance: grossly normal Course Reevaluation(s) Reevaluation #1: Patient with Covid will dc home Time: 11:31 Medical Decision Making Differential Diagnosis Differential Diagnoses: The differential diagnosis associated with the presentation includes (viral illness, tick born illness, pneumonia, pericarditis were all considered) Admission/Observation Consideration of admission/observation: Escalation of care including admission/observation considered (upon arrival patient considered for admission) Lab Data CBC consistent with viral infection, COVID positive 08/27/23 08:52 08/27/23 08:52 Labs: Lab Results 08/27/23 08/27/23 Range/Units 08:38 08:52 WBC 4.2 L (4.8-10.8) X10*3/uL RBC 4.07 L (4.20-5.50) X10*6/uL Hgb 12.0 (12.0-16.0) g/dl Hct 36.6 L (37.0-47.0) % MCV 89.9 (80.0-98.0) fL MCH 29.5 (27.0-33.0) pg MCHC 32.8 (31.0-35.0) g/dl RDW 12.8 (11.0-16.0) % Plt Count 191 (160-400) X10*3/uL MPV 10.0 (9.4-12.3) fL Immature Gran % (Auto) 0.2 (0.0-0.4) % Neut % (Auto) 68.2 (45-73) % Lymph % (Auto) 15.1 L (20-40) % [place] % (Auto) 15.3 H (2-11) % Eos % (Auto) 0.7 (0-4) % Baso % (Auto) 0.5 (0-2) % Lymph # (Auto) 0.6 L (1.2-4.9) X10*3/uL [place] # (Auto) 0.7 (0.1-1.2) X10*3/uL Eos # (Auto) 0.0 (0.0-0.4) X10*3/uL Baso # (Auto) 0.0 (0.0-0.2) X10*3/uL Abs Immat Gran (auto) 0.01 (0.00-0.03) X10*3/uL Absolute Neuts (auto) 2.9 (2.0-8.3) x10*3/uL Absolute Nucleated RBC 0.000 (0.0-0.012) X10*3/uL Nucleated RBC % (auto) 0.0 (0.0-0.2) /100WBC Sodium 137 (135-145) mmol/L Potassium 3.7 (3.3-5.1) mmol/L Chloride 107 (96-108) mmol/L Carbon Dioxide 26 (22-29) mmol/L Anion Gap 8 L (12-20) BUN 8 L (9-16) mg/dL Creatinine 0.75 (0.5-1.4) mg/dL Estim Creat Clear Calc 77.5 Estimated GFR > 60 Random Glucose 121 H (60-115) mg/dL Calcium 9.7 D (8.4-10.2) mg/dL Troponin I High Sens < 2.7 (<3.5-17.0) ng/L TSH 0.65 (0.32-4.0) uIU/mL Urine Color Yellow Urine Appearance Cloudy Urine pH 5.5 (5.0-9.0) Ur Specific [place] >= 1.030 H (1.005-1.025) Urine Protein 30 (1+) H (Neg-Trace) mg/dL Urine Glucose (UA) Negative (Negative) mg/dL Urine Ketones Trace (Negative) mg/dL Urine Blood Small (1+) H (Negative) Urine Nitrite Negative (Negative) Ur Leukocyte Esterase Negative (Negative) Urine RBC >20 H (0-2) /HPF Urine WBC 0-5 (0-5) /HPF Ur Squamous Epith Cells 6-10 (0-2) /HPF Urine Bacteria Trace (None Seen) Hyaline Casts 0-2 (0-2) /LPF Urine Test NEGATIVE (NEGATIVE) COVID-19 (NEL) Positive A (Negative) COVID-19 Clin Com See Note Independent Interpretation I performed an independent interpretation of an: EKG (sinus 96, no st or twave changes) Prescription Management I considered prescription management with: Antibiotic (no evidence of pneumonia) Discharge Plan Discharge Clinical Impression: COVID-19 Patient Disposition: Home, Self-Care Instructions: COVID-19 (Coronavirus Disease 2019) (ED) Prescriptions: No Action diphenhydramine HCl [Benadryl] 25 mg capsule 25 mg PO TID PRN (Reason: allergic reaction) Qty: 14 0RF sumatriptan succinate [Imitrex] 50 mg tablet 50 mg PO Q2H PRN (Reason: migraine headache) Qty: 10 0RF Rx Instructions: do not exceed 2 doses per 24 hrs Referrals: Amrita Elise MD [Primary Care Provider] - 1 week
[2023-08-27 09:01] LABS: MANUAL DIFF FLAG NO
[2023-08-27 09:02] LABS: Basophils Percent Auto 0.5 % (0-2); Eosinophils Percent Auto 0.7 % (0-4); Hematocrit 36.6 % (37.0-47.0); Imm Gran Abs Auto 0.01 X10*3/uL (0.00-0.03); Imm Gran Pct Auto 0.2 % (0.0-0.4); Lymphocytes Absolute Auto 0.6 X10*3/uL (1.2-4.9); Lymphocytes Percent Auto 15.1 % (20-40); Mean Corpuscular HGB Conc 32.8 g/dl (31.0-35.0); Mean Corpuscular Hemoglobin 29.5 pg (27.0-33.0); Mean Corpuscular Volume 89.9 fL (80.0-98.0); Monocytes Absolute Auto 0.7 X10*3/uL (0.1-1.2); Monocytes Percent Auto 15.3 % (2-11); Neutrophils Absolute Auto 2.9 x10*3/uL (2.0-8.3); Neutrophils Percent Auto 68.2 % (45-73); Platelet Count 191 X10*3/uL (160-400); Red Blood Count 4.07 X10*6/uL (4.20-5.50); Red Cell Distribution Width 12.8 % (11.0-16.0); White Blood Count 4.2 X10*3/uL (4.8-10.8)
[2023-08-27 09:04] LABS: Appearance Urine Cloudy; Color Urine Yellow; Glucose Urine UA Negative (Negative); Leukocyte Esterase Urine Negative (Negative); Nitrite Urine Negative (Negative); PH 5.5 (5.0-9.0); Specific Gravity - Urine >= 1.030 (1.005-1.025); UMIC TRIGGER UACC YES; Urine Blood Small (1+) (Negative); Urine Ketones Trace mg/dL (Negative); Urine Protein 30 (1+) mg/dL (Neg-Trace)
[2023-08-27 09:05] LABS: UPreg QC Valid YES; Urine Pregnancy NEGATIVE (NEGATIVE)
[2023-08-27 09:06] LABS: Bacteria Urine Trace (None Seen); Hyaline Casts Urine 0-2 /LPF (0-2); RBC Urine >20 /HPF (0-2); WBC Urine 0-5 /HPF (0-5)
--- NOTE | 2023-08-27 09:06 | PC.NURSE ---
FULL BODY AND JOINT ACHE AND HEADACHE STARTED YESTERDAY, DIZZINESS, NON-PRODUCTIVE COUGH. DENIES N/V/D/CHEST PAIN. HOME COVID TEST NEGATIVE. NO EXPOSURE TO ANYONE SICK.
[2023-08-27 09:31] LABS: Anion Gap 8 (12-20); Blood Urea Nitrogen 8 mg/dL (9-16); Calcium 9.7 mg/dL (8.4-10.2); Carbon Dioxide 26 mmol/L (22-29); Chloride 107 mmol/L (96-108); Creatinine Clr Calc Pharmacy 77.5; Estimated Glomerular Filt Rate > 60; Glucose Random 121 mg/dL (60-115); Potassium 3.7 mmol/L (3.3-5.1); Sodium 137 mmol/L (135-145)
[2023-08-27 09:39] LABS: Troponin-I High Sensitivity < 2.7 ng/L (<3.5-17.0)
[2023-08-27 09:40] LABS: COVID-19 Test Positive (Negative); IDNOW Serial# 08D9AD1C
[2023-08-27 09:48] LABS: Thyroid Stimulating Hormone 0.65 uIU/mL (0.32-4.0)
[2023-09-03 11:34] LABS: A phagocytophilum IgG <1:64 (<1:64); A phagocytophilum IgM <1:20 (<1:20); Babesia duncani Ab IgG (WA1) <1:256; Babesia microti IgG <1:64 titer (<1:64); Babesia microti IgM <1:20 titer (<1:20); E chaffeensis IgG <1:64 (<1:64); E chaffeensis IgM <1:20 (<1:20); Lyme Ab Screen <0.90 index
== END 2023-08-27 11:50 | disposition home or self-care (01) ==
PROVIDERS: Emergency Provider Emergency Medicine; PCP Internal Medicine
DX: U07.1 COVID-19 (principal); R07.9 Chest pain, unspecified
CPT/HCPCS: 36415; 80048; 81001; 81003; 81025; 84443; 84484; 85025; 86618; 86666; 86753; 87635; 93005; 99284

== ENCOUNTER → 2023-10-16 08:40 | Outpatient (BNVA) | payer OTHER, SELFPAY | PROVIDERS: PCP Internal Medicine; Visit Provider Orthopaedic Surgery ==

== ENCOUNTER 2023-10-16 12:50 | Outpatient (AMB) | payer OTHER, SELFPAY ==
--- NOTE | 2023-10-16 12:55 | MHC.PC.OV ---
Vital Signs 10/16/23 12:58 Height 4 ft 11 in Weight 104 lb BMI 21.0 BP 94/60 Blood Pressure Location Rt brachial Position Sitting Pulse 74 Pulse Source Pulse Oximeter Pulse Oximetry (%) 99 Oxygen Delivery Method Room Air Intake Visit Reasons: Right sided abdominal pain Intake Note: Pt is here today for a sick visit. Pt c/o R abdominal pain, chest pain and palpitation. Pt states that has surgery scheduled for 11/05/23 to have ganglion removed from her L hand wrist area. Allergies shrimp Allergy (Verified 10/16/23 13:01) Facial Swelling Medication List - Last Reconciled 10/16/23 by Amrita Elise MD diphenhydramine HCl (Benadryl) 25 mg PO TID PRN [id number] 29 mg iron- 1 mg ( 19) 1 tab PO DAILY Tobacco use date assessed: 10/16/23 Dental Screening Dental Screen Date: 10/16/23 Did you have a dental visit in the last 12 months?: Yes Did you have a dental problem in the last 6 months where you did not have access to dental care?: No Was dental information given to patient?: Patient has dentist HPI Right sided abdominal pain HPI Details Pt c/o epigastric abd pain increased abdominal bloating for a few weeks after she took antibiotic 2 months. Patient had a diarrhea which resolved. She denies hematochezia, melena and reports intermittent constipation. Pt reports chest tightness last night after lying down in bed lasted about 10 minutes, it was not associated nausea vomiting and there was no radiation of the pain to jaw or shoulder. Pt reports intermittent palpitations for 2 months since had COVID. Patient denies exertional chest pain or shortness for breath, pleurisy or cough, fever chills or night sweats. She denies anxiety. [facility] Medical History Weight loss Annual physical exam Sore throat Knee pain Chronic lower back pain Chronic headaches Eczema Surgical History History of hernia repair Family History Father Medical history non-contributory Mother HTN (hypertension) Maternal Grandfather Unknown family medical history Maternal Grandmother Unknown family medical history Paternal Grandmother No problems noted. Paternal Grandfather Unknown family medical history Brother No problems noted. Sister No problems noted. 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 How often do you have a drink containing alcohol?: Never 3. How often do you have six or more drinks on one occasion?: Never Total Score: 0 ROGELIO-7 AMB Questionnaire ROGELIO-7 Date ROGELIO - 7 assessed: 04/19/23 Feeling nervous, anxious, or on edge: 0 = Not at all Not being able to stop or control worryin = Several days Worrying too much about different things: 1 = Several days Trouble relaxin = Several days Being so restless that it is hard to sit still: 0 = Not at all Becoming easily annoyed or irritable: 0 = Not at all Feeling afraid as if something awful might happen: 0 = Not at all Total ROGELIO-7 score (0-4 normal; 5-9 mild; 10-14 moderate; 15-21 severe): 3 Source: Developed by Drs. Alfredo Thurston, Blanca Gibbs, Amilcar Henao and colleagues, with an educational shira from [employer]. Review of Systems Const All systems reviewed & are unremarkable except as noted in HPI and below Reports no additional complaints Eyes Reports no additional complaints ENT Reports no additional complaints Card Reports no additional complaints Resp Reports no additional complaints GI Reports no additional complaints Reports no additional complaints Physical exam (Primary Care) Vital Signs: Last Vital Signs Pulse 74 10/16/23 12:58 BP 94/60 10/16/23 12:58 Pulse Ox 99 10/16/23 12:58 Oxygen Delivery Method Room Air 10/16/23 12:58 BMI result Body Mass Index 21.0 Tobacco/Smoking Status: Tobacco use Status Tobacco use date assessed 10/16/23 10/16/23 13:02 Patient Tobacco Use Status Never used Tobacco 10/16/23 13:02 e-Cigarette/Vaping Use Never Used 10/16/23 13:02 Thrive Assessment: Date of Thrive Assessment Date Thrive assessed 04/19/23 10/16/23 13:02 Const General: no acute distress HENMT Head: Yes normal to inspection Ears: hearing grossly normal bilaterally Face and sinus: Yes normal facial exam Mouth: Normal oral and palatal mucosa present Neck Neck: Yes supple Resp Effort & Inspection: normal respiratory effort Auscultation: clear to auscultation bilaterally Cardio Rhythm: regular rhythm Heart sounds: S1 normal heart sound present and S2 normal heart sound present GI Inspection: Yes normal to inspection Palpation (GI): Soft to palpation Percussion: Yes normal to percussion Auscultation: normal bowel sounds Assessment and Plan Assessment & Plan (1) Palpitations: Code(s): R00.2 - Palpitations Plan: EKG showed normal sinus rhythm no ST-T changes. blood work will be obtained including CBC comprehensive panel and thyroid function level. For intermittent bloating patient was advised take probiotics and famotidine for noncardiac chest pain, patient was advised to increase fiber and fluid intake for chronic constipation and add Citrucel if the constipation persist Orders: Orders Complete Blood Count Auto Diff Today R00.2 - Palpitations TSH reflex Free T4 Today R00.2 - Palpitations Comprehensive Met. Panel Today R00.2 - Palpitations Coding Level of Care Code Est Pt Level 3 (84108) Diagnoses Palpitations R00.2
[2023-10-16 12:58] VITALS: BP 94/60; PULSE 74; O2SAT 99; BMI 21.0
== END 2023-10-16 13:28 | disposition home or self-care (01) ==
PROVIDERS: PCP Internal Medicine; Visit Provider Internal Medicine
DX: R00.2 Palpitations (principal)
CPT/HCPCS: 99213

== ENCOUNTER 2023-10-16 13:29 | Outpatient (REF) | payer OTHER, SELFPAY ==
[2023-10-16 15:59] LABS: MANUAL DIFF FLAG NO
[2023-10-16 16:04] LABS: Basophils Absolute Auto 0.1 X10*3/uL (0.0-0.2); Basophils Percent Auto 0.9 % (0-2); Eosinophils Absolute Auto 0.1 X10*3/uL (0.0-0.4); Eosinophils Percent Auto 1.2 % (0-4); Hemoglobin 11.8 g/dl (12.0-16.0); Imm Gran Abs Auto 0.01 X10*3/uL (0.00-0.03); Imm Gran Pct Auto 0.2 % (0.0-0.4); Lymphocytes Absolute Auto 1.5 X10*3/uL (1.2-4.9); Lymphocytes Percent Auto 26.7 % (20-40); Mean Corpuscular HGB Conc 32.8 g/dl (31.0-35.0); Mean Corpuscular Hemoglobin 29.8 pg (27.0-33.0); Mean Corpuscular Volume 90.9 fL (80.0-98.0); Mean Platelet Volume 10.8 fL (9.4-12.3); Monocytes Absolute Auto 0.6 X10*3/uL (0.1-1.2); Monocytes Percent Auto 9.6 % (2-11); Neutrophils Absolute Auto 3.5 x10*3/uL (2.0-8.3); Neutrophils Percent Auto 61.4 % (45-73); Platelet Count 259 X10*3/uL (160-400); Red Blood Count 3.96 X10*6/uL (4.20-5.50); Red Cell Distribution Width 12.7 % (11.0-16.0); White Blood Count 5.7 X10*3/uL (4.8-10.8)
[2023-10-16 16:34] LABS: Alanine Aminotransferase 6 U/L (0-31); Albumin Level 4.5 g/dL (3.5-5.0); Alkaline Phosphatase 71 U/L (39-117); Anion Gap 10 (12-20); Aspartate Amino Transferase 18 U/L (5-31); Bilirubin Total 0.4 mg/dL (0.0-1.0); Blood Urea Nitrogen 8 mg/dL (9-16); Calcium 10.2 mg/dL (8.4-10.2); Carbon Dioxide 27 mmol/L (22-29); Chloride 105 mmol/L (96-108); Estimated Glomerular Filt Rate > 60; Glucose Random 82 mg/dL (60-115); Potassium 4.2 mmol/L (3.3-5.1); Sodium 138 mmol/L (135-145)
[2023-10-16 16:45] LABS: TSH reflex Free T4 1.08 uIU/mL (0.32-4.0)
== END 2023-10-16 13:30 | disposition home or self-care (01) ==
LOC: HO.HMGCLDS 13:29
PROVIDERS: PCP Internal Medicine; Visit Provider Internal Medicine
DX: R00.2 Palpitations (principal)
CPT/HCPCS: 36415; 80053; 84443; 85025

== ENCOUNTER 2023-10-28 21:54 | Emergency (ER) | payer OTHER, SELFPAY ==
--- NOTE | 2023-10-28 22:00 | ED.GENADULT ---
HPI - General Adult General Chief complaint: General Medical Stated complaint: facial pain/headache/SOB, elevated bp and HR Time Seen by Provider: 10/28/23 21:58 Source: patient Mode of arrival: ambulatory Limitations: no limitations History of Present Illness HPI narrative: Patient with significant past medical history noticed right facial pain and palpitation just prior to arrival with lasted for about 10 minutes on the pulse ox machine heart rate was in 130s went to 170s when EMS arrived it was normal sinus rhythm no chest pain no shortness of breath patient had no history of palpitation in the past no syncope or dizziness Related Data Home Medications Medication Instructions Recorded Confirmed vitamin no.115-iron 29 1 tab PO DAILY 10/16/23 10/16/23 mg-folic acid 1 mg chewable tablet ( 19) Previous Rx's Medication Instructions Recorded diphenhydramine HCl 25 mg capsule 25 mg PO TID PRN allergic reaction 11/05/22 (Benadryl) #14 caps Allergies Allergy/AdvReac Type Severity Reaction Status Date / Time shrimp Allergy Facial Verified 10/28/23 22:10 Swelling Review of Systems Review of Systems: Yes all other systems are reviewed and are negative [facility] Past Medical History Medical History Weight loss Annual physical exam Sore throat Knee pain Chronic lower back pain Chronic headaches Eczema Surgical History History of hernia repair Family History Family History Father Medical history non-contributory Mother HTN (hypertension) Maternal Grandfather Unknown family medical history Maternal Grandmother Unknown family medical history Paternal Grandmother No problems noted. Paternal Grandfather Unknown family medical history Brother No problems noted. Sister No problems noted. 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 Oriented X3. No acute distress. Eyes: PERRLA, N ENT: Pharynx normal. Oral Mucosa moist Neck: Normal inspection. Neck supple. CVS: Normal heart rate and rhythm. No murmur/rub or gallop Pulses normal. Respiratory: No respiratory distress. Equal air entry bilateral, no wheezing/rales/rhonchi Abdomen: Soft and nontender. Bowel sounds are present, Skin: Skin warm and dry. Normal skin color. Normal skin turgor. Extremities: No lower extremity edema. No calf tenderness Neuro: Oriented X 3. No motor deficit. Medications Administered Discontinued Medications Generic Name Dose Route Start Last Admin Trade Name Freq PRN Reason Stop Dose Admin Ibuprofen 600 mg 10/28/23 22:37 10/28/23 23:36 Ibuprofen 600 Mg Tablet PO 10/28/23 22:38 600 mg ONCE ONE Administration Medical Decision Making Medical Decision Making [facility] Narrative: Patient episode of palpitation likely anxiety/SVT labs are stable no cardiac arrhythmias noticed in the ER discharge patient home at was decreased caffeine intake patient just had the TSH tested last week which was normal Differential Diagnosis Differential Diagnoses: The differential diagnosis associated with the presentation includes SVT/AFib/anxiety Lab Data [facility] Lab Attestation statement: I reviewed the patient's lab results. 10/28/23 23:11 10/28/23 23:11 Labs: Lab Results 10/28/23 Range/Units 23:11 WBC 8.8 (4.8-10.8) X10*3/uL RBC 3.85 L (4.20-5.50) X10*6/uL Hgb 11.4 L (12.0-16.0) g/dl Hct 34.5 L (37.0-47.0) % MCV 89.6 (80.0-98.0) fL MCH 29.6 (27.0-33.0) pg MCHC 33.0 (31.0-35.0) g/dl RDW 12.4 (11.0-16.0) % Plt Count 213 (160-400) X10*3/uL MPV 9.8 (9.4-12.3) fL Immature Gran % (Auto) 0.1 (0.0-0.4) % Neut % (Auto) 72.6 (45-73) % Lymph % (Auto) 16.9 L (20-40) % Gove % (Auto) 9.2 (2-11) % Eos % (Auto) 0.5 (0-4) % Baso % (Auto) 0.7 (0-2) % Lymph # (Auto) 1.5 (1.2-4.9) X10*3/uL Gove # (Auto) 0.8 (0.1-1.2) X10*3/uL Eos # (Auto) 0.0 (0.0-0.4) X10*3/uL Baso # (Auto) 0.1 (0.0-0.2) X10*3/uL Abs Immat Gran (auto) 0.01 (0.00-0.03) X10*3/uL Absolute Neuts (auto) 6.4 (2.0-8.3) x10*3/uL Absolute Nucleated RBC 0.000 (0.0-0.012) X10*3/uL Nucleated RBC % (auto) 0.0 (0.0-0.2) /100WBC Sodium 140 (135-145) mmol/L Potassium 3.6 (3.3-5.1) mmol/L Chloride 110 H (96-108) mmol/L Carbon Dioxide 23 (22-29) mmol/L Anion Gap 11 L (12-20) BUN 10 (9-16) mg/dL Creatinine 0.80 (0.5-1.4) mg/dL Estim Creat Clear Calc 72.0 Estimated GFR > 60 Random Glucose 94 (60-115) mg/dL Calcium 9.6 (8.4-10.2) mg/dL Magnesium 2.0 (1.6-2.6) mg/dL Independent Interpretation I performed an independent interpretation of an: EKG Interpretation: Normal sinus rhythm heart rate 92 beats per minute normal interval normal axis no acute ST T wave changes no acute ischemia Discharge Plan Discharge Clinical Impression: Heart palpitations Patient Disposition: Home, Self-Care Instructions: Heart Palpitations (ED) Additional Instructions: Cause of your palpitation not very clear possible you had SVT Avoid caffeine intake Follow with your PCP if you have recurrence of attacks for further evaluation Prescriptions: No Action diphenhydramine HCl [Benadryl] 25 mg capsule 25 mg PO TID PRN (Reason: allergic reaction) Qty: 14 0RF 19 29 mg iron- 1 mg tablet,chewable 1 tab PO DAILY
[2023-10-28 22:01] VITALS: BP 109/64; BP 141/85; PULSE 105; PULSE 99; RESP 16; TEMP 36.6; O2SAT 100; BMI 21.0
--- NOTE | 2023-10-28 22:37 | ECG_ITS ---
Test Reason : PALPATATIONS Blood Pressure : / mmHG Vent. Rate : 088 BPM Atrial Rate : 088 BPM P-R Int : 148 ms QRS Dur : 072 ms QT Int : 342 ms P-R-T Axes : -17 -06 019 degrees QTc Int : 413 ms Normal sinus rhythm Normal ECG When compared with ECG of 27-AUG-2023 07:45, Questionable change in QRS axis Referred By: Robert Martinez Electronically Signed By:CANDACE XIONG MD
[2023-10-28 23:18] LABS: MANUAL DIFF FLAG NO
[2023-10-28 23:20] LABS: Basophils Absolute Auto 0.1 X10*3/uL (0.0-0.2); Basophils Percent Auto 0.7 % (0-2); Eosinophils Percent Auto 0.5 % (0-4); Hematocrit 34.5 % (37.0-47.0); Hemoglobin 11.4 g/dl (12.0-16.0); Imm Gran Abs Auto 0.01 X10*3/uL (0.00-0.03); Imm Gran Pct Auto 0.1 % (0.0-0.4); Lymphocytes Absolute Auto 1.5 X10*3/uL (1.2-4.9); Lymphocytes Percent Auto 16.9 % (20-40); Mean Corpuscular Hemoglobin 29.6 pg (27.0-33.0); Mean Corpuscular Volume 89.6 fL (80.0-98.0); Mean Platelet Volume 9.8 fL (9.4-12.3); Monocytes Absolute Auto 0.8 X10*3/uL (0.1-1.2); Monocytes Percent Auto 9.2 % (2-11); Neutrophils Absolute Auto 6.4 x10*3/uL (2.0-8.3); Neutrophils Percent Auto 72.6 % (45-73); Platelet Count 213 X10*3/uL (160-400); Red Blood Count 3.85 X10*6/uL (4.20-5.50); Red Cell Distribution Width 12.4 % (11.0-16.0); White Blood Count 8.8 X10*3/uL (4.8-10.8)
[2023-10-28 23:30] VITALS: PULSE 80
[2023-10-28 23:35] LABS: Anion Gap 11 (12-20); Blood Urea Nitrogen 10 mg/dL (9-16); Calcium 9.6 mg/dL (8.4-10.2); Carbon Dioxide 23 mmol/L (22-29); Chloride 110 mmol/L (96-108); Estimated Glomerular Filt Rate > 60; Glucose Random 94 mg/dL (60-115); Potassium 3.6 mmol/L (3.3-5.1); Sodium 140 mmol/L (135-145)
[2023-10-28] MEDS: Ibuprofen 600 MG TABLET PO (23:36)
[2023-10-29 00:05] VITALS: BP 110/68; PULSE 76; RESP 18; O2SAT 98
== END 2023-10-29 00:05 | disposition home or self-care (01) ==
PROVIDERS: Emergency Provider Internal Medicine; PCP Internal Medicine
DX: R00.2 Palpitations (principal); R51.9 Headache, unspecified; R06.02 Shortness of breath
CPT/HCPCS: 36415; 80048; 83735; 85025; 93005; 99284; 99285

== ENCOUNTER → 2023-10-28 22:37 | Outpatient (BNV) | payer OTHER, SELFPAY | PROVIDERS: Emergency Provider Internal Medicine; PCP Internal Medicine; Visit Provider Internal Medicine Cardiovascular Disease | DX: R00.2 Palpitations (principal) | CPT/HCPCS: 93010 ==

== ENCOUNTER 2023-11-12 06:06 | Day surgery (SDC) | payer OTHER, SELFPAY ==
[2023-11-08 08:00] VITALS: BMI 21.0
--- NOTE | 2023-11-08 12:55 | HO.ANESPROP2 ---
HPI - Anesthesia Eval Consult details Narrative: 28yo F for Left Excision of Dorsal wrist Ganglion [facility] ED 10/2023 with palpitations and tachy at home and no recurrence in ED. Unclear etiology with negative w/u. Pt with hx panic attacks. PMFSH Active Problems Active Problems: All Active Problems (Updated 10/30/23 @ 00:01 by Background Daemon) Palpitations (Acute) COVID-19 (Acute) Upper respiratory tract infection (Acute) Ganglion cyst of dorsum of left wrist (Acute) Normal pelvic exam (Acute) Synovial cyst of hand (Acute) Shortness of breath (Acute) Shrimp allergy (Acute) Allergic reaction (Acute) Migraine (Acute) Panic attack (Acute) Weight loss (Acute) Annual physical exam (Acute) Strep throat (Acute) Left breast mass (Acute) Mother currently breast-feeding (Acute) Mastitis in female (Acute) Sore throat (Acute) Knee pain (Acute) Chronic lower back pain (Acute) Chronic headaches (Acute) Past Medical History Medical History Weight loss Annual physical exam Sore throat Knee pain Chronic lower back pain Chronic headaches Eczema Family History Family History Father Medical history non-contributory Mother HTN (hypertension) Maternal Grandfather Unknown family medical history Maternal Grandmother Unknown family medical history Paternal Grandmother No problems noted. Paternal Grandfather Unknown family medical history Brother No problems noted. Sister No problems noted. 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 Cognitive needs: No Hearing needs: No Vision needs: Yes Meds Allergies Allergy/AdvReac Type Severity Reaction Status Date / Time shrimp Allergy Facial Verified 10/28/23 22:10 Swelling Home Medications Medication Instructions Recorded Confirmed Last Taken Type vitamin no.115-iron 29 1 tab PO DAILY 0111/12/23 11/11/23 History mg-folic acid 1 mg chewable tablet ( 19) Exam Height,Weight and Vital Signs: Height 4 ft 11 in Weight 47.174 kg Pertinent Lab Results Pertinent Lab Results: Laboratory Tests 10/28/23 23:11 WBC 8.8 Hgb 11.4 L Hct 34.5 L Plt Count 213 Sodium 140 Potassium 3.6 Chloride 110 H Carbon Dioxide 23 BUN 10 Creatinine 0.80 Narrative Narrative: EKG 10/2023 Vent. Rate : 088 BPM Atrial Rate : 088 BPM P-R Int : 148 ms QRS Dur : 072 ms QT Int : 342 ms P-R-T Axes : -17 -06 019 degrees QTc Int : 413 ms Normal sinus rhythm Normal ECG When compared with ECG of 27-AUG-2023 07:45, Questionable change in QRS axis Assessment and Plan Assessment Anesthesia Assessment: Chart Reviewed
[2023-11-12] VITALS (8 sets, daily range): BP systolic 109–124; BP diastolic 66–78; PULSE 67–86; RESP 16–18; TEMP 36.1–36.6; O2SAT 98–100; BMI 21.7
[2023-11-12] MEDS: Lactated Ringers 1,000 ML 100 ML IVCONT (06:42)
[2023-11-12 06:47] LABS: UPreg QC Valid YES; Urine Pregnancy NEGATIVE (NEGATIVE)
--- NOTE | 2023-11-12 07:52 | MHC.SHP ---
Pre-Procedural Eval Section A - 24 Hr Update-Section A only Date of Service: 11/12/23 The patient is an INPATIENT: No Changes since office visit: No Cold of Flu in the past 2 weeks, No New Medical Problems, No Changes in Medication and No Patient answered all questions Section B - Complete if H&P > 30 days Chief Complaint: Ganglion, left wrist Allergies: Allergies Allergy/AdvReac Type Severity Reaction Status Date / Time shrimp Allergy Facial Verified 10/28/23 22:10 Swelling Plan I have reviewed the history and physical and performed a pertinent physical examination on my patient. No changes have occurred unless specified. Time Spent With Patient Time: Total time managing care of this patient today ____ minutes.
--- NOTE | 2023-11-12 07:52 | W.PM.OPN ---
Operative Note Operative Note Date of Service: 11/12/23 Narrative: Operative Note Narrative: Preop diagnosis: 1. Left dorsal wrist ganglion Postop diagnosis: Same Procedure: 1. Left dorsal wrist ganglion excisional biopsy Surgeon: Alina Calvin MD Anesthesia: General Findings: 1. Two adjacent but apparently not in her connected Left dorsal wrist ganglions approximately 1 cm diameter each, filled with clear viscous fluid consistent with a ganglion Tourniquet time: 15 minutes EBL: 5.0 ml Specimen: dorsal wrist ganglion Drains: None Complications: None Disposition: Brought to the recovery room in stable condition Plan: Follow-up in 10-14 days for wound check, suture removal and to check pathology Indications: The patient is 28 years old with a left dorsal wrist ganglion that has been unresponsive to nonoperative management. The risks and benefits of operative treatment, including but not limited to risk of damage to blood vessels, nerves, tendons, infection, recurrence, persistent pain or numbness, or need for further surgery were discussed with the patient and they wished to proceed with surgery. Procedure: Once consent was obtained patient was brought back to the operating suite and placed in the operating table in a supine position. Perioperative antibiotics and anesthesia was administered by the anesthesia team. A tourniquet was applied to the proximal aspect of the left upper extremity and the limb was prepped and draped in a standard surgical fashion. The limb was elevated exsanguinated with Esmarch bandage and the tourniquet inflated to 250 mm of mercury for a total tourniquet time of 15 minutes. A 2.5 cm longitudinal incision was made over the dorsal aspect of the left wrist, centered over the dorsal wrist ganglion. Ganglion was located over the dorsal central aspect of the wrist between the ECRB tendon in the 4th dorsal compartment.. The incision was made with a #15 blade through the skin to the subcutaneous tissues. Tenotomy scissors were then used to carefully dissect down through the subcutaneous layer to the dorsal wrist ganglion. There were actually 2 dorsal wrist ganglions that each measured approximately 1-1.2 cm in diameter . They were filled with clear viscous fluid consistent with a ganglion and were adjacent, but interestingly did not appear to be interconnected.. They were carefully mobilized from the surrounding soft tissues using tenotomy and iris scissors. They are stalks passed through the interval between the ECRB and 4th dorsal compartment tendons. The bipolar electrocautery was used to cauterize the stalks to reduce risk of recurrence., and the ganglions were cut free and removed to the back table to be sent for histopathologic review. No further masses were identified. At this point the tourniquet was deflated and hemostasis obtained with a brief period of local pressure and monopolar electrocautery. Wound was irrigated with normal saline. The subcutaneous layer was closed with some 4-0 Vicryl suture, and the skin edges were reapproximated with a running 4-0 absorbable Monocryl subcuticular closure. Steri-Strips and Mastisol were also applied.. The wound was infiltrated with some 0.5% plain ropivacaine for postop pain control and a sterile dressing was applied. The patient appears to have tolerated the procedure well and with no complications. All digits were well vascularized conclusion of the case.
--- NOTE | 2023-11-12 07:56 | HO.ANESPROP2 ---
[facility] Active Problems Active Problems: All Active Problems (Updated 10/30/23 @ 00:01 by Arvind Jacinto) Palpitations (Acute) COVID-19 (Acute) Upper respiratory tract infection (Acute) Ganglion cyst of dorsum of left wrist (Acute) Normal pelvic exam (Acute) Synovial cyst of hand (Acute) Shortness of breath (Acute) Shrimp allergy (Acute) Allergic reaction (Acute) Migraine (Acute) Panic attack (Acute) Weight loss (Acute) Annual physical exam (Acute) Strep throat (Acute) Left breast mass (Acute) Mother currently breast-feeding (Acute) Mastitis in female (Acute) Sore throat (Acute) Knee pain (Acute) Chronic lower back pain (Acute) Chronic headaches (Acute) Past Medical History Medical History Weight loss Annual physical exam Sore throat Knee pain Chronic lower back pain Chronic headaches Eczema Patient : No Family History Family History Father Medical history non-contributory Mother HTN (hypertension) Maternal Grandfather Unknown family medical history Maternal Grandmother Unknown family medical history Paternal Grandmother No problems noted. Paternal Grandfather Unknown family medical history Brother No problems noted. Sister No problems noted. 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 Housing: House Alcohol intake: never Patient Tobacco Use Status: Never used Tobacco e-Cigarette/Vaping Use: Never Used Second Hand Smoke Exposure: No Use of substances other than those prescribed or required for medical reasons: No Are you DNR?: No Advance Directives: No Advance Directives Information Provided: Yes Advance Directives on File: No Current occupational status: employed 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 Cognitive needs: No Hearing needs: No Vision needs: Yes Meds Allergies Allergy/AdvReac Type Severity Reaction Status Date / Time shrimp Allergy Facial Verified 10/28/23 22:10 Swelling Active Medications: Current Medications Lactated Ringer's (Lr) 1,000 mls @ 100 mls/hr IVCONT .Q10H ANTOINETTE Last Admin: 11/12/23 06:42 Dose: 100 mls/hr Home Medications Medication Instructions Recorded Confirmed Last Taken Type vitamin no.115-iron 29 1 tab PO DAILY 10/16/23 11/12/23 11/11/23 History mg-folic acid 1 mg chewable tablet ( 19) Exam Height,Weight and Vital Signs: Height 4 ft 11 in Weight 48.648 kg Last Vital Signs Temp 97.8 F 11/12/23 06:43 Pulse 86 11/12/23 06:43 Resp 16 11/12/23 06:43 BP 124/69 11/12/23 06:43 Pulse Ox 100 11/12/23 06:43 O2 Del Method Room Air 11/12/23 06:43 Pertinent Lab Results Pertinent Lab Results: Laboratory Tests 11/12/23 06:22 Urine Test NEGATIVE Airway Mallampati Class: II TM Dist: >3cm Neck ROM: Full Heart: rrr Lungs: clear Assessment and Plan Final Anesthetic Review Family History of Problems with Anesthesia: No History of Problems with Anesthesia: No ASA Class: I Final Preanesthetic Review: No Changes in Pt Med Stat, Meds/Allgs Chart Reviewed, Consent Obtained/Reviewed and Anes Risks/Benef Reviewed Patient Risk: Low Procedure Risk: Low Anesthetic Plan Anesthetic Plan: GA Disposition: Standard PACU
[2023-11-12] MEDS: ondansetron HCL 4 MG/2 ML VIAL IVPUSH (09:44)
[2023-11-12] MEDS: Ketorolac Tromethamine 30 MG/ML VIAL IVPUSH (09:59)
== END 2023-11-12 10:51 | disposition home or self-care (01) ==
PROVIDERS: Nurse Practitioner; PCP Internal Medicine; Visit Provider Orthopaedic Surgery
PROC: (CPT 25111; principal; 2023-11-12 07:30)
DX: M67.432 Ganglion, left wrist (principal); G89.29 Other chronic pain; R51.9 Headache, unspecified; M54.50 Low back pain, unspecified; L30.9 Dermatitis, unspecified
CPT/HCPCS: 25111; 81025; 88304; J0171; J0690; J1100; J1885; J2250; J2405; J2704; J2795; J3010

== ENCOUNTER → 2023-11-12 06:06 | Outpatient (BNV) | payer OTHER, SELFPAY | PROVIDERS: PCP Internal Medicine; Visit Provider Orthopaedic Surgery | DX: M67.432 Ganglion, left wrist (principal) | CPT/HCPCS: 25111 ==

== ENCOUNTER → 2023-11-21 10:47 | Outpatient (REF) | payer OTHER, SELFPAY ==
--- NOTE | 2023-11-21 10:53 | HM_ITS ---
Conclusion: 1. Patient was monitored for total period of 3 days 2. Baseline was normal sinus rhythm with average heart of 80 beats per minute 3. Rare PACs noted 4. No significant pauses noted 5. Patient marked the counter 2 times without associated symptoms correlating with sinus rhythm MTDD
== END ==
LOC: HO.CARD 10:47
PROVIDERS: PCP Internal Medicine; Visit Provider Internal Medicine
DX: R00.2 Palpitations (principal)
CPT/HCPCS: 93242

== ENCOUNTER → 2023-11-21 10:53 | Outpatient (BNV) | payer OTHER, SELFPAY | PROVIDERS: PCP Internal Medicine; Visit Provider Internal Medicine Cardiovascular Disease | DX: I49.1 Atrial premature depolarization (principal) | CPT/HCPCS: 93244 ==

== ENCOUNTER 2023-11-27 08:20 | Outpatient (AMB) | payer OTHER, SELFPAY ==
--- NOTE | 2023-11-27 08:26 | MHC.OFFVIS ---
Intake Intake Visit Reasons: P/O LT DWG Exc 11/12/23 Intake Note: Peri 28 yr old female presents today for her P/O visit for her left DWG Exc 11/12/23. States she has no pain and is doing well. Sutures removed in office and steri strips applied. Allergies shrimp Allergy (Verified 11/27/23 08:36) Facial Swelling HPI P/O LT DWG Exc 11/12/23 HPI Details Peri is a 28 year old right hand dominant woman who returns S/P left dorsal wrist ganglion excision, DOS: 11/14/23 She says she is doing well and her pain is tolerable. 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 She says she used to work at [employer], but this was contract work and she has time off to recover from surgery. [facility] Medical History Weight loss Annual physical exam Sore throat Knee pain Chronic lower back pain Chronic headaches Eczema Surgical History History of hernia repair Family History Father Medical history non-contributory Mother HTN (hypertension) Maternal Grandfather Unknown family medical history Maternal Grandmother Unknown family medical history Paternal Grandmother No problems noted. Paternal Grandfather Unknown family medical history Brother No problems noted. Sister No problems noted. 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 Absorbable suture placed, the ends were trimmed today in clinic The dorsal wrist ganglion is no longer present. She can make a fist and extend all her digits Sensation is intact Cap refill is brisk Pathology report 11/14/23 Gross Description Received in formalin is a 2.2 x 1.0 x 0.3 cm aggregate of white, rubbery tissue, consistent with a disrupted cystic structure. Vamp Presser sections are submitted in A1. (RJD) Psych Appearance: grossly normal Affect: normal affect Attitude: cooperative Assessment & Plan Assessment & Plan (1) Ganglion cyst of dorsum of left wrist: Code(s): M67.432 - Ganglion, left wrist Plan Assessment & Plan: 1. Left dorsal wrist ganglion, S/P excision DOS: 11/14/23 The patient appears to be doing well post-operatively I educated her about the post-operative course I discussed activity modifications, she is to lift nothing heavier than a cellphone for the next two weeks She will perform gentle ROM exercises at home She should gently massage about the incision site to reduce the risk of hypersensitivity She can follow up prn Scribed for Alina Calvin MD by Marck Dillon, biomedical service engineer, on 11/27/23 at 8:44 AM, EST. Coding Level of Care Code Global (49030) Diagnoses Ganglion cyst of dorsum of left wrist M67.432
== END 2023-11-27 08:45 | disposition home or self-care (01) ==
PROVIDERS: PCP Internal Medicine; Visit Provider Orthopaedic Surgery
DX: M67.432 Ganglion, left wrist (principal)
CPT/HCPCS: 99024

== ENCOUNTER → 2023-11-27 08:20 | Outpatient (BNVA) | payer OTHER, SELFPAY | PROVIDERS: PCP Internal Medicine; Visit Provider Orthopaedic Surgery | DX: M67.432 Ganglion, left wrist (principal) | CPT/HCPCS: 99212 ==

== ENCOUNTER 2023-12-31 21:16 | Emergency (ER) | payer OTHER, SELFPAY ==
--- NOTE | 2023-12-31 | ECG_ITS ---
Test Reason : ARRYTHMIA Blood Pressure : / mmHG Vent. Rate : 080 BPM Atrial Rate : 080 BPM P-R Int : 152 ms QRS Dur : 074 ms QT Int : 362 ms P-R-T Axes : 067 065 042 degrees QTc Int : 417 ms Normal sinus rhythm Possible Left atrial enlargement Borderline ECG When compared with ECG of 28-OCT-2023 22:59, Questionable change in QRS axis Referred By: Generic ED Physician Electronically Signed By:CANDACE XIONG MD
[2023-12-31 21:45] VITALS: BP 132/78; PULSE 84; RESP 18; TEMP 36.8; O2SAT 100; BMI 20.8
[2023-12-31 22:04] LABS: MANUAL DIFF FLAG NO
[2023-12-31 22:05] LABS: Basophils Absolute Auto 0.1 X10*3/uL (0.0-0.2); Basophils Percent Auto 0.8 % (0-2); Eosinophils Absolute Auto 0.1 X10*3/uL (0.0-0.4); Hematocrit 36.6 % (37.0-47.0); Hemoglobin 12.4 g/dl (12.0-16.0); Imm Gran Abs Auto 0.01 X10*3/uL (0.00-0.03); Imm Gran Pct Auto 0.2 % (0.0-0.4); Lymphocytes Absolute Auto 2.3 X10*3/uL (1.2-4.9); Lymphocytes Percent Auto 37.6 % (20-40); Mean Corpuscular HGB Conc 33.9 g/dl (31.0-35.0); Mean Corpuscular Hemoglobin 30.2 pg (27.0-33.0); Mean Corpuscular Volume 89.1 fL (80.0-98.0); Mean Platelet Volume 9.9 fL (9.4-12.3); Monocytes Absolute Auto 0.6 X10*3/uL (0.1-1.2); Monocytes Percent Auto 9.4 % (2-11); Neutrophils Absolute Auto 3.1 x10*3/uL (2.0-8.3); Platelet Count 259 X10*3/uL (160-400); Red Blood Count 4.11 X10*6/uL (4.20-5.50); Red Cell Distribution Width 12.3 % (11.0-16.0); White Blood Count 6.2 X10*3/uL (4.8-10.8)
[2023-12-31 22:24] LABS: Alanine Aminotransferase 5 U/L (0-31); Albumin Level 4.6 g/dL (3.5-5.0); Alkaline Phosphatase 82 U/L (39-117); Anion Gap 10 (12-20); Aspartate Amino Transferase 17 U/L (5-31); Bilirubin Total 0.3 mg/dL (0.0-1.0); Blood Urea Nitrogen 13 mg/dL (9-16); Carbon Dioxide 27 mmol/L (22-29); Chloride 108 mmol/L (96-108); Creatinine Clr Calc Pharmacy 75.8; Estimated Glomerular Filt Rate > 60; Glucose Random 93 mg/dL (60-115); Potassium 3.9 mmol/L (3.3-5.1); Sodium 141 mmol/L (135-145); Total Protein 7.3 g/dL (6.5-8.0)
[2023-12-31 22:25] LABS: HCG Quantitative < 2 mIU/mL
== END 2024-01-01 | disposition left against medical advice (07) ==
PROVIDERS: Emergency Provider Emergency Medicine
DX: I49.9 Cardiac arrhythmia, unspecified (principal); Z79.899 Other long term (current) drug therapy
CPT/HCPCS: 36415; 80053; 84702; 85025; 93005; 99283

== ENCOUNTER → 2023-12-31 21:53 | Outpatient (BNV) | payer OTHER, SELFPAY | PROVIDERS: Emergency Provider Emergency Medicine; Visit Provider Internal Medicine Cardiovascular Disease | DX: I49.9 Cardiac arrhythmia, unspecified (principal) | CPT/HCPCS: 93010 ==

== ENCOUNTER 2024-01-10 12:59 | Outpatient (AMB) | payer OTHER, SELFPAY ==
--- NOTE | 2024-01-10 13:10 | MHC.PC.OV ---
Vital Signs 01/10/24 13:12 Height 4 ft 11 in Weight 103 lb BMI 20.8 BP 96/64 Blood Pressure Location Lt brachial Position Sitting Pulse 90 Pulse Source Pulse Oximeter Pulse Oximetry (%) 98 Oxygen Delivery Method Room Air Intake Visit Reasons: Random Palpitations/ED 12/30 Left w/out being seen Intake Note: Pt is here today for a ER follow up visit. Allergies shrimp Allergy (Verified 01/10/24 13:16) Facial Swelling Medication List - Last Reconciled 01/10/24 by Amrita Elise MD diphenhydramine HCl (Benadryl) 25 mg PO TID PRN [id number] 29 mg iron- 1 mg ( 19) 1 tab PO DAILY Tobacco use date assessed: 01/10/24 Dental Screening Dental Screen Date: 01/10/24 Did you have a dental visit in the last 12 months?: Yes Did you have a dental problem in the last 6 months where you did not have access to dental care?: No Was dental information given to patient?: Patient has dentist HPI Random Palpitations/ED 12/30 Left w/out being seen HPI Details Pt presents c/o recurrent palpitations. She had an episode in October and another one last week. Her heart rate was up to 130, while patient was watching TV. she denies chest pain shortness for breath during the episode. She denies depression or anxiety but has been feeling tired because of not getting enough sleep at night. she was nursing her 3-year-old daughter and stopped 2 weeks ago. Patient had negative Holter for 3 days when she indicated symptoms of palpitations correlated rhythm was normal sinus rhythm. 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 [facility] Medical History (Updated 01/10/24 @ 15:24 by Amrita Elise MD) Weight loss Annual physical exam Sore throat Knee pain Chronic lower back pain Chronic headaches Eczema Surgical History (Updated 01/10/24 @ 13:18 by SUELLEN Carrizales) History of surgical removal of ganglion cyst History of hernia repair Family History Father Medical history non-contributory Mother HTN (hypertension) Maternal Grandfather Unknown family medical history Maternal Grandmother Unknown family medical history Paternal Grandmother No problems noted. Paternal Grandfather Unknown family medical history Brother No problems noted. Sister No problems noted. 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 1. Little interest or pleasure in doing things: not at all 2. Feeling down, depressed, or hopeless: not at all 3. Trouble falling or staying asleep, or sleeping too much: not at all 4. Feeling tired or having little energy: not at all 5. Poor appetite or overeating: not at all 6. Feeling bad about yourself - or that you are a failure or have let yourself or your family down: not at all 7. Trouble concentrating on things, such as reading the newspaper or watching television: not at all 8. Moving or speaking so slowly that other people could have noticed. Or the opposite - being so fidgety or restless that you have been moving around a lot more than usual: not at all 9. Thoughts that you would be better off or of hurting yourself in some way: not at all Total score: 0 Depression Screening Interpretation: Negative Depression Screening Done: Yes Source: Developed by Drs. Alfredo Thurston, Blanca Gibbs, Amilcar Henao and colleagues, with an educational shira from [employer] Thrive Questionnaire Date Thrive assessed: 01/10/24 I am a: Patient What is your living situation today?: I have a steady place to live Within the past 12 months, did the food you bought not last and you didn't have the money to get more?: Never true Within the past 12 months, did you worry whether your food would run out before you got money to buy more?: Never true Do you have trouble paying for medicines?: No Do you have trouble getting transportation to medical appointments?: No Do you have trouble paying your heating and electricity bill?: No Do you have trouble taking care of your child, family member or friend?: No Do you have trouble with day-to-day activities such as bathing, preparing meals, shopping, managing finances, etc.?: No Are you currently unemployed and looking for a job?: No Are you interested in more education?: No Please select the resources that you would like help with: None THRIVE Score: 0 AUDIT C Alcohol Use Questionnaire (AUDIT-C) 1. How often do you have a drink containing alcohol?: Never 3. How often do you have six or more drinks on one occasion?: Never Total Score: 0 ROGELIO-7 AMB Questionnaire ROGELIO-7 Date ROGELIO - 7 assessed: 01/10/24 Source: Developed by Drs. Alfredo Thurston, Blanca Gibbs, Amilcar Henao and colleagues, with an educational shira from [employer] ROGELIO-7 Assessment Billing ROGELIO-7 Assessment Tool: pt declined-do not bill Review of Systems Const All systems reviewed & are unremarkable except as noted in HPI and below Reports no additional complaints Eyes Reports no additional complaints ENT Reports no additional complaints Card Reports no additional complaints Resp Reports no additional complaints Physical exam (Primary Care) Vital Signs: Last Vital Signs Pulse 90 01/10/24 13:12 BP 96/64 01/10/24 13:12 Pulse Ox 98 01/10/24 13:12 Oxygen Delivery Method Room Air 01/10/24 13:12 BMI result Body Mass Index 20.8 Tobacco/Smoking Status: Tobacco use Status Tobacco use date assessed 01/10/24 01/10/24 13:19 Patient Tobacco Use Status Never used Tobacco 01/10/24 13:10 e-Cigarette/Vaping Use Never Used 01/10/24 13:10 PHQ-9: PHQ-9 Score PHQ-9: Total score 0 01/10/24 13:19 Depression Screening Interpretation: Negative Thrive Assessment: Date of Thrive Assessment Date Thrive assessed 01/10/24 01/10/24 13:19 Const General: no acute distress HENMT Head: Yes normal to inspection Neck Neck: Yes supple Resp Effort & Inspection: normal respiratory effort Auscultation: clear to auscultation bilaterally Cardio Rhythm: regular rhythm Heart sounds: S1 normal heart sound present and S2 normal heart sound present GI Inspection: Yes normal to inspection Palpation (GI): Soft to palpation Percussion: Yes normal to percussion Assessment and Plan Assessment & Plan (1) Palpitations: Comment: nl Holter 3 days 11/24 Code(s): R00.2 - Palpitations (2) Heart murmur: Code(s): R01.1 - Cardiac murmur, unspecified Plan: Obtain echocardiogram to evaluate for heart murmur, Orders: Orders CA echo transthoracic complete Today R00.2 - Palpitations, R01.1 - Cardiac murmur, unspecified Coding Level of Care Code Est Pt Level 3 (55087) Diagnoses Palpitations R00.2 Heart murmur R01.1
[2024-01-10 13:12] VITALS: BP 96/64; PULSE 90; O2SAT 98; BMI 20.8
== END 2024-01-10 15:26 | disposition home or self-care (01) ==
PROVIDERS: PCP Internal Medicine; Visit Provider Internal Medicine
DX: R00.2 Palpitations (principal); R01.1 Cardiac murmur, unspecified
CPT/HCPCS: 99213

== ENCOUNTER → 2024-01-24 13:37 | Outpatient (REF) | payer OTHER, SELFPAY ==
--- NOTE | 2024-01-24 14:20 | CA_ITS ---
Transthoracic Echocardiogram Patient (Last, First, Middle): Peri Valles, Gender: Female Date of : 1995 Age: 28 Procedure Date: 01/24/2024 Procedure Type: Transthoracic Echocardiogram Location: OP Height: 149.86 cm Weight: 48. kg BSA: 1.41 m2 Heart Rate: bpm BP: 116 / 68 mmHg Statistical Clerk: MARILU Referring MD: Amrita Elise MD Maintenance Planner: Luis Miller MD Symptoms: R00.2 - Palpitations Study Quality: Adequate ECG Rhythm: Sinus Conclusions: - Normal study Findings Left Ventricle Normal left ventricular size, thickness, and systolic function. The visually estimated ejection fraction is between 60-65%. Diastolic function is normal for age. Peak GLS is -24.8%, within normal limits. Right Ventricle Normal right ventricular cavity size and systolic function. Atria Both atria are normal in size. There is no evidence of interatrial shunt. Aortic Valve Normal aortic valve structure and function. There is no aortic valve stenosis. There is no aortic valve regurgitation. Mitral Valve Normal mitral valve structure and function. There is trace mitral valve regurgitation. There is no mitral valve stenosis. Pulmonic Valve The pulmonic valve is likely normal. There is trace pulmonic valve regurgitation. Tricuspid Valve Normal tricuspid valve structure. There is trace tricuspid valve regurgitation. The right ventricular systolic pressure is normal. The right ventricular systolic pressure is 23 mmHg. Normal right atrial pressure. There is no evidence of pulmonary hypertension. Great Vessels All visible segments of the aorta are normal in size. The visualized portions of the pulmonary artery and branches are normal. Venous The inferior vena cava is normal in size and collapses greater than 50% with inspiration. Pericardium/Pleural There is no evidence of pericardial effusion. Prior Study Comparison No prior study available for comparison. Measurements 2D Linear Measurements IVSd: 0.71 0.6-0.9/0.6-1.0 cm LVIDd: 3.98 3.9-5.3/4.2-5.9 cm LVIDd Index: 2.82 2.4-3.2/2.2-3.1 cm/m2 LVIDs: 2.48 2.0-3.6 cm LVPWd: 0.93 0.7-1.1 cm LA Diam: 2.20 2.7-3.8/3.0-4.0 cm LAIDs Index: 1.56 1.5-2.3 cm/m2 LV Mass: 119.33 67-162/88-224 g LV Mass Index: 84.63 43-95/49-115 g/m2 LVOT Diam: 1.90 3.0+(-)1.3 cm 2D Systolic Function EF 4C: 65.20 >55% EF 2C: 60.50 >55% EF BiP: 63.00 >55% Mitral Valve MV Pk E: 0.93 MV PK A: 0.62 MV Decel Time: 211.00 E/A: 1.50 E'Lateral: 19.10 E'Medial: 12.60 E/E' Med: 7.40 E/E' Lat: 4.90 PHT: 62.00 MVA PHT: 3.55 Decel Dillon: 4.40 Aortic Valve AoV Pk Henri: 1.60 AoV Mn Henri: 1.07 AoV VTI: 0.32 AoV Pk Grad: 10.00 Aov Mn Grad: 5.00 ALFONSO Cont.VTI: 2.12 LVOT LVOT Pk Henri: 1.28 LVOT Mn Henri: 0.78 LVOT VTI: 0.24 LVOT Pk Grad: 7.00 LVOT Mn Grad: 3.00 LVOT Diam: 1.90 LVOT Area: 2.84 Diastolic Function MV Pk E: 0.93 MV Pk A: 0.62 E/A: 1.50 E'Medial: 12.60 E/E' Med: 7.40 E' Laterial: 19.10 E/E' Lat: 4.90 Right Ventricle TAPSE (mm): 25.40 TVS' Henri: 13.70 Tricuspid Valve TR Pk Henri: 2.25 TR Pk Grad: 20.00 RA Press: 3.00 RVSP: 23.00 Great Vessels Aorta Sinus of Valsalva: 2.64 2.0-3.5 cm Ao Asc: 2.50 2.1-3.4 cm Ao Arch: 2.10 Updated in Other Vendor System with Status of Final Luis Miller MD electronically signed on 01/25/2024 3:31:05 PM with status of Final
== END ==
LOC: HO.CARD 13:37
PROVIDERS: PCP Internal Medicine; Visit Provider Internal Medicine
DX: R00.2 Palpitations (principal); R01.1 Cardiac murmur, unspecified
CPT/HCPCS: 93306; 93356

== ENCOUNTER → 2024-01-24 14:20 | Outpatient (BNV) | payer OTHER, SELFPAY | PROVIDERS: PCP Internal Medicine; Visit Provider Internal Medicine Cardiovascular Disease | DX: R00.2 Palpitations (principal) | CPT/HCPCS: 93306; 93356 ==

== ENCOUNTER 2024-04-24 11:46 | Outpatient (AMB) | payer OTHER, SELFPAY ==
--- NOTE | 2024-04-24 12:13 | MHC.PC.OV ---
Vital Signs 04/24/24 12:16 Height 4 ft 11 in Weight 107 lb BMI 21.6 BP 116/64 Blood Pressure Location Lt brachial Position Sitting Pulse 66 Pulse Source Pulse Oximeter Pulse Oximetry (%) 66 L Oxygen Delivery Method Room Air Intake Visit Reasons: PE Intake Note: Pt is here today for PE. Allergies shrimp Allergy (Verified 04/24/24 12:18) Facial Swelling Medication List - Last Reconciled 04/24/24 by Amrita Elise MD diphenhydramine HCl (Benadryl) 25 mg PO TID PRN [id number] acid 29 mg iron- 1 mg ( 19) 1 tab PO DAILY Tobacco use date assessed: 01/10/24 Dental Screening Dental Screen Date: 01/10/24 HPI PE HPI Details Patient presents for physical PFSH Medical History Weight loss Annual physical exam Sore throat Knee pain Chronic lower back pain Chronic headaches Eczema Surgical History History of surgical removal of ganglion cyst History of hernia repair Family History Father Medical history non-contributory Mother HTN (hypertension) Maternal Grandfather Unknown family medical history Maternal Grandmother Unknown family medical history Paternal Grandmother No problems noted. Paternal Grandfather Unknown family medical history Brother No problems noted. Sister No problems noted. 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 1. Little interest or pleasure in doing things: not at all 2. Feeling down, depressed, or hopeless: not at all 3. Trouble falling or staying asleep, or sleeping too much: not at all 4. Feeling tired or having little energy: not at all 5. Poor appetite or overeating: not at all 6. Feeling bad about yourself - or that you are a failure or have let yourself or your family down: not at all 7. Trouble concentrating on things, such as reading the newspaper or watching television: not at all 8. Moving or speaking so slowly that other people could have noticed. Or the opposite - being so fidgety or restless that you have been moving around a lot more than usual: not at all 9. Thoughts that you would be better off or of hurting yourself in some way: not at all Total score: 0 Depression Screening Interpretation: Negative Depression Screening Done: Yes Source: Developed by Drs. Alfredo Thurston, Blanca Gibbs, Amilcar Henao and colleagues, with an educational shira from [employer]. Thrive Questionnaire Date Thrive assessed: 04/19/24 I am a: Patient What is your living situation today?: I have a steady place to live Within the past 12 months, did the food you bought not last and you didn't have the money to get more?: Never true Within the past 12 months, did you worry whether your food would run out before you got money to buy more?: Never true Do you have trouble paying for medicines?: No Do you have trouble getting transportation to medical appointments?: No Do you have trouble paying your heating and electricity bill?: No Do you have trouble taking care of your child, family member or friend?: No Do you have trouble with day-to-day activities such as bathing, preparing meals, shopping, managing finances, etc.?: No Are you currently unemployed and looking for a job?: No Are you interested in more education?: No Please select the resources that you would like help with: Housing/Half-Way Currently or been in a relationship where the following occur: No concerns reported THRIVE Score: 0 AUDIT C Alcohol Use Questionnaire (AUDIT-C) 1. How often do you have a drink containing alcohol?: Never Total Score: 0 ROGELIO-7 AMB Questionnaire ROGELIO-7 Date ROGELIO - 7 assessed: 04/24/24 Feeling nervous, anxious, or on edge: 1 = Several days Not being able to stop or control worryin = Not at all Worrying too much about different things: 1 = Several days Trouble relaxin = Not at all Being so restless that it is hard to sit still: 0 = Not at all Becoming easily annoyed or irritable: 0 = Not at all Feeling afraid as if something awful might happen: 0 = Not at all Total ROGELIO-7 score (0-4 normal; 5-9 mild; 10-14 moderate; 15-21 severe): 2 Source: Developed by Drs. Alfredo Thurston, Blanca Gibbs, Amilcar Henao and colleagues, with an educational shira from [employer]. Review of Systems Const All systems reviewed & are unremarkable except as noted in HPI and below Eyes Reports no additional complaints ENT Reports no additional complaints Card Reports no additional complaints Resp Reports no additional complaints GI Reports no additional complaints Reports no additional complaints Physical exam (Primary Care) Vital Signs: Last Vital Signs Pulse 66 04/24/24 12:16 BP 116/64 04/24/24 12:16 Pulse Ox 66 L 04/24/24 12:16 Oxygen Delivery Method Room Air 04/24/24 12:16 BMI result Body Mass Index 21.6 Tobacco/Smoking Status: Tobacco use Status Tobacco use date assessed 01/10/24 04/24/24 12:13 Patient Tobacco Use Status Never used Tobacco 04/24/24 12:13 e-Cigarette/Vaping Use Never Used 04/24/24 12:13 PHQ-9: PHQ-9 Score PHQ-9: Total score 0 04/24/24 12:21 Depression Screening Interpretation: Negative Thrive Assessment: Date of Thrive Assessment Date Thrive assessed 04/19/24 04/24/24 12:13 Currently or been in a relationship where the following occur: No concerns reported Const General: no acute distress HENMT Head: Yes normal to inspection Ears: hearing grossly normal bilaterally Eyes General: appearance normal, both eyes and all related structures Neck Neck: Yes supple Resp Effort & Inspection: normal respiratory effort Auscultation: clear to auscultation bilaterally Cardio Rhythm: regular rhythm Heart sounds: S1 normal heart sound present and S2 normal heart sound present GI Inspection: Yes normal to inspection Palpation (GI): Soft to palpation Percussion: Yes normal to percussion Auscultation: normal bowel sounds Assessment and Plan Assessment & Plan (1) Annual physical exam: Code(s): Z00.00 - Encounter for general adult medical examination without abnormal findings Plan: Well-balanced diet regular physical activity increasing protein intake discussed with the patient. she will return for fasting blood work Orders: Orders TSH reflex Free T4 Today Z00.00 - Encounter for general adult medical examination without abnormal findings UA w Microscopic Today Z00.00 - Encounter for general adult medical examination without abnormal findings Comprehensive [place]. Panel Fast Today Z00.00 - Encounter for general adult medical examination without abnormal findings Lipid Panel Today Z00.00 - Encounter for general adult medical examination without abnormal findings Complete Blood Count Auto Diff Today Z00.00 - Encounter for general adult medical examination without abnormal findings Coding Level of Care Code Est Pt Prev Care 18-39y(60144) Diagnoses Annual physical exam Z00.00
[2024-04-24 12:16] VITALS: BP 116/64; PULSE 66; O2SAT 66; BMI 21.6
== END 2024-04-24 13:03 | disposition home or self-care (01) ==
PROVIDERS: PCP Internal Medicine; Visit Provider Internal Medicine
DX: Z00.00 Encounter for general adult medical examination without abnormal findings (principal)
CPT/HCPCS: 99395

== ENCOUNTER 2024-04-30 07:31 | Outpatient (REF) | payer OTHER, SELFPAY ==
[2024-04-30 07:43] LABS: MANUAL DIFF FLAG NO
[2024-04-30 09:17] LABS: Basophils Absolute Auto 0.1 X10*3/uL (0.0-0.2); Basophils Percent Auto 1.1 % (0-2); Eosinophils Absolute Auto 0.1 X10*3/uL (0.0-0.4); Eosinophils Percent Auto 2.2 % (0-4); Hemoglobin 12.3 g/dl (12.0-16.0); Imm Gran Abs Auto 0.01 X10*3/uL (0.00-0.03); Imm Gran Pct Auto 0.2 % (0.0-0.4); Lymphocytes Absolute Auto 1.6 X10*3/uL (1.2-4.9); Lymphocytes Percent Auto 34.4 % (20-40); Mean Corpuscular HGB Conc 32.4 g/dl (31.0-35.0); Mean Corpuscular Hemoglobin 29.4 pg (27.0-33.0); Mean Corpuscular Volume 90.9 fL (80.0-98.0); Mean Platelet Volume 10.7 fL (9.4-12.3); Monocytes Absolute Auto 0.4 X10*3/uL (0.1-1.2); Monocytes Percent Auto 7.9 % (2-11); Neutrophils Absolute Auto 2.5 x10*3/uL (2.0-8.3); Neutrophils Percent Auto 54.2 % (45-73); Platelet Count 274 X10*3/uL (160-400); Red Blood Count 4.18 X10*6/uL (4.20-5.50); Red Cell Distribution Width 12.6 % (11.0-16.0); White Blood Count 4.6 X10*3/uL (4.8-10.8)
[2024-04-30 09:58] LABS: Appearance Urine Clear; Color Urine Yellow; Glucose Urine UA Negative (Negative); Leukocyte Esterase Urine Negative (Negative); Nitrite Urine Negative (Negative); Specific Gravity - Urine 1.015 (1.005-1.025); Urine Blood Negative (Negative); Urine Ketones Negative (Negative); Urine Protein Negative (Neg-Trace)
[2024-04-30 10:01] LABS: Bacteria Urine None Seen (None Seen); Hyaline Casts Urine 0-2 /LPF (0-2); RBC Urine 0-2 /HPF (0-2); Squamous Epithelial Cell Urine 0-2 /HPF (0-2); WBC Urine 0-5 /HPF (0-5)
[2024-04-30 10:14] LABS: Alanine Aminotransferase < 5 U/L (0-31); Albumin Level 4.8 g/dL (3.5-5.0); Alkaline Phosphatase 74 U/L (39-117); Anion Gap 10 (12-20); Aspartate Amino Transferase 18 U/L (5-31); Bilirubin Total 0.5 mg/dL (0.0-1.0); Blood Urea Nitrogen 10 mg/dL (9-16); Calcium 10.3 mg/dL (8.4-10.2); Carbon Dioxide 25 mmol/L (22-29); Chloride 106 mmol/L (96-108); Cholesterol 122 mg/dL (<200); Estimated Glomerular Filt Rate > 60; Glucose Fasting 89 mg/dL (60-99); HDL Cholesterol 50 mg/dL (>40); LDL Cholesterol Calculated 62 mg/dL (<100); Potassium 3.9 mmol/L (3.3-5.1); Sodium 137 mmol/L (135-145); Total Protein 7.4 g/dL (6.5-8.0); Triglycerides 50 mg/dL (<150)
[2024-04-30 10:41] LABS: TSH reflex Free T4 1.45 uIU/mL (0.32-4.0)
== END 2024-04-30 07:32 | disposition home or self-care (01) ==
LOC: HO.LAB 07:31
PROVIDERS: PCP Internal Medicine; Visit Provider Internal Medicine
DX: Z00.00 Encounter for general adult medical examination without abnormal findings (principal)
CPT/HCPCS: 36415; 80053; 80061; 81001; 84443; 85025

== ENCOUNTER 2024-07-02 09:51 | Outpatient (AMB) | payer OTHER, SELFPAY ==
[2024-07-02 09:52] VITALS: BP 96/62; PULSE 69; O2SAT 99; BMI 21.6
--- NOTE | 2024-07-02 09:52 | MHC.PC.OV ---
Vital Signs 07/02/24 09:52 Height 4 ft 11 in Weight 107 lb BMI 21.6 BP 96/62 Blood Pressure Location Lt brachial Position Sitting Pulse 69 Pulse Source Pulse Oximeter Pulse Oximetry (%) 99 Oxygen Delivery Method Room Air Intake Visit Reasons: Back pain on going Intake Note: Pt is here today for a sick visit. Pt c/o on going pain in her kidneys but mostly her R side. Allergies shrimp Allergy (Verified 07/02/24 10:01) Facial Swelling Tobacco use date assessed: 07/02/24 Dental Screening Dental Screen Date: 01/10/24 HPI Back pain on going HPI Details Pt c/o R side mid lumbar spine discomfort on and off for months lasting up 1 day, worse with a change in body position. She denies pain radiating to lower extremities nausea vomiting hematuria dysuria abdominal pain fever chills. 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 [facility] Medical History Weight loss Annual physical exam Sore throat Knee pain Chronic lower back pain Chronic headaches Eczema Surgical History History of surgical removal of ganglion cyst History of hernia repair Family History Father Medical history non-contributory Mother HTN (hypertension) Maternal Grandfather Unknown family medical history Maternal Grandmother Unknown family medical history Paternal Grandmother No problems noted. Paternal Grandfather Unknown family medical history Brother No problems noted. Sister No problems noted. 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 Cognitive needs: No Hearing needs: No Vision needs: Yes Questionnaire Thrive Questionnaire Date Thrive assessed: 04/19/24 I am a: Patient What is your living situation today?: I have a steady place to live Within the past 12 months, did the food you bought not last and you didn't have the money to get more?: Never true Within the past 12 months, did you worry whether your food would run out before you got money to buy more?: Never true Do you have trouble paying for medicines?: No Do you have trouble getting transportation to medical appointments?: No Do you have trouble paying your heating and electricity bill?: No Do you have trouble taking care of your child, family member or friend?: No Do you have trouble with day-to-day activities such as bathing, preparing meals, shopping, managing finances, etc.?: No Are you currently unemployed and looking for a job?: No Are you interested in more education?: No Please select the resources that you would like help with: None Currently or been in a relationship where the following occur: No concerns reported THRIVE Score: 0 AUDIT C Alcohol Use Questionnaire (AUDIT-C) 1. How often do you have a drink containing alcohol?: Never 3. How often do you have six or more drinks on one occasion?: Never Total Score: 0 ROGELIO-7 AMB Questionnaire ROGELIO-7 Date ROGELIO - 7 assessed: 04/24/24 Source: Developed by Drs. Alfredo Thurston, Blanca Gibbs, Amilcar Henao and colleagues, with an educational shira from [employer]. Review of Systems Const All systems reviewed & are unremarkable except as noted in HPI and below ENT Reports no additional complaints Card Reports no additional complaints Resp Reports no additional complaints GI Reports no additional complaints Reports no additional complaints Neuro Reports no additional complaints Physical exam (Primary Care) Vital Signs: Last Vital Signs Pulse 69 07/02/24 09:52 BP 96/62 07/02/24 09:52 Pulse Ox 99 07/02/24 09:52 Oxygen Delivery Method Room Air 07/02/24 09:52 BMI result Body Mass Index 21.6 Tobacco/Smoking Status: Tobacco use Status Tobacco use date assessed 07/02/24 07/02/24 10:02 Patient Tobacco Use Status Never used Tobacco 07/02/24 10:02 e-Cigarette/Vaping Use Never Used 07/02/24 09:55 Thrive Assessment: Date of Thrive Assessment Date Thrive assessed 04/19/24 07/02/24 09:55 Currently or been in a relationship where the following occur: No concerns reported Const General: no acute distress Resp Effort & Inspection: normal respiratory effort Auscultation: clear to auscultation bilaterally Cardio Rhythm: regular rhythm Heart sounds: S1 normal heart sound present and S2 normal heart sound present GI Inspection: Yes normal to inspection Palpation (GI): Soft to palpation Percussion: Yes normal to percussion Auscultation: normal bowel sounds Back/Spine/Pelvis Other: There is a reproducible tenderness in the mid right paraspinal lumbar region, straight leg rising 90 degrees bilaterally Coding Level of Care Code Est Pt Level 3 (85256) Diagnoses Lower back pain M54.50 Assessment & Plan Assessment & Plan (1) Lower back pain: Code(s): M54.50 - Low back pain, unspecified Category: Medical Plan: For chronic lower back pain secondary to muscle strain patient will be referred to physical therapy. Ergonomic body position at work discussed with the patient Orders: Orders PT Evaluation and Treatment Today M54.50 - Low back pain, unspecified
== END 2024-07-02 10:45 | disposition home or self-care (01) ==
PROVIDERS: PCP Internal Medicine; Visit Provider Internal Medicine
DX: M54.50 Low back pain, unspecified (principal)

== ENCOUNTER → 2024-07-02 09:51 | Outpatient (BNVA) | payer OTHER, SELFPAY | PROVIDERS: PCP Internal Medicine; Visit Provider Internal Medicine | DX: M54.50 Low back pain, unspecified (principal) | CPT/HCPCS: 99212 ==

== ENCOUNTER 2024-10-15 15:04 | Outpatient (REF) | payer OTHER, SELFPAY ==
--- NOTE | 2024-10-15 15:06 | EMG_ITS ---
Chief complaint: New onset right hand numbness and left wrist pain Reason for referral: Evaluate for Carpal Tunnel Syndrome Referred by: Jovon JOHNSON Procedure done: Bilateral upper extremities NCS/EMG Precautions and/or limitations: None The limb temperature was monitored continuously and remained between 32-36 degrees C during the performance of the NCS. Nerve Conduction Studies Anti Sensory Summary Table ?Stim Site NR Onset (ms) Norm Onset (ms) Peak (ms) Norm Peak (ms) O-P Amp (?V) Norm O-P Amp Site1 Site2 Delta-0 (ms) Dist (cm) Henri (m/s) Norm Henri (m/s) Left Median Anti Sensory (2nd Digit) Wrist ? 2.7 3.3 <3.6 45.0 >10 Wrist 2nd Digit 2.7 14.0 52 Right Median Anti Sensory (2nd Digit) Wrist ? 2.1 2.9 <3.6 13.0 >10 Wrist 2nd Digit 2.1 14.0 67 Left Ulnar Anti Sensory (5th Digit) Wrist ? 2.0 2.8 <3.7 58.3 >15.0 Wrist 5th Digit 2.0 14.0 70 Right Ulnar Anti Sensory (5th Digit) Wrist ? 2.1 3.0 <3.7 40.1 >15.0 Wrist 5th Digit 2.1 14.0 67 Motor Summary Table ?Stim Site NR Onset (ms) Norm Onset (ms) O-P Amp (mV) Norm O-P Amp iAmp (mV) Amp (1st) (%) Site1 Site2 Delta-0 (ms) Dist (cm) Henri (m/s) Norm Henri (m/s) Left Median Motor (Abd Poll Brev) Wrist ? 3.0 <3.9 13.6 >4.5 16.4 100.0 Elbow Wrist 2.9 16.5 57 >45 Elbow ? 5.9 13.1 16.1 96.3 Right Median Motor (Abd Poll Brev) Wrist ? 3.0 <3.9 7.5 >4.5 8.6 100.0 Elbow Wrist 2.9 17.0 59 >45 Elbow ? 5.9 7.2 8.4 96.0 Left Ulnar Motor (Abd Dig Minimi) Wrist ? 2.7 <3.0 10.7 >5 12.4 100.0 B Elbow Wrist 2.2 14.0 64 >45 B Elbow ? 4.9 10.9 12.7 101.9 A Elbow B Elbow 1.4 10.0 71 >45 A Elbow ? 6.3 10.8 12.6 100.9 Right Ulnar Motor (Abd Dig Minimi) Wrist ? 2.4 <3.0 12.0 >5 14.6 100.0 B Elbow Wrist 2.8 17.0 61 >45 B Elbow ? 5.2 11.9 14.7 99.2 A Elbow B Elbow 1.2 10.0 83 >45 A Elbow ? 6.4 10.7 13.1 89.2 Comparison Summary Table ?Stim Site NR Peak (ms) Norm Peak (ms) P-T Amp (?V) Site1 Site2 Delta-P (ms) Norm Delta (ms) Right Median/Radial Dig I Comparison (Digit 1 - 10cm) Median ? 2.3 <2.9 115.4 Median Radial 0.0 Radial ? 2.3 <2.8 19.8 EMG ?Side Muscle Nerve Root Ins Act Fibs Psw Amp Dur Poly Recrt Int Pat Comment Right 1stDorInt Ulnar C8-T1 Nml Nml Nml Nml Nml 0 Nml Complete Right FlexCarRad Median C6-7 Nml Nml Nml Nml Nml 0 Nml Complete Right Biceps Musculocut C5-6 Nml Nml Nml Nml Nml 0 Nml Complete Right Triceps Radial C6-7-8 Nml Nml Nml Nml Nml 0 Nml Complete Right Deltoid Axillary C5-6 Nml Nml Nml Nml Nml 0 Nml Complete Left 1stDorInt Ulnar C8-T1 Nml Nml Nml Nml Nml 0 Nml Complete Left FlexCarRad Median C6-7 Nml Nml Nml Nml Nml 0 Nml Complete Left Biceps Musculocut C5-6 Nml Nml Nml Nml Nml 0 Nml Complete Left Triceps Radial C6-7-8 Nml Nml Nml Nml Nml 0 Nml Complete Left Deltoid Axillary C5-6 Nml Nml Nml Nml Nml 0 Nml Complete FINDINGS: All motor and sensory nerves tested showed normal latencies, amplitudes and conduction velocities. Concentric needle EMG was performed in selected muscles of the bilateral upper extremities. Study did not reveal signs of electric abnormalities as shown in the table above. IMPRESSION: 1. This is a normal study. 2. There is no electrodiagnostic evidence for median neuropathy, ulnar neuropathy, brachial plexopathy, or cervical radiculopathy. CLINICAL COMMENT: Advised to wear wrist splints at night. Thank you for your kind referral. Aliya Vanegas MD, ILDA Board Certified, [place] Board [employer] Physical Medicine and Rehabilitation (ABPMR) Board Certified, [place] Board of Electrodiagnostic Medicine (ABEM) CODIN [phone] MTDD
== END 2024-10-15 15:05 | disposition home or self-care (01) ==
LOC: HO.NEURO 15:04
PROVIDERS: PCP Internal Medicine
DX: R20.0 Anesthesia of skin (principal); R20.2 Paresthesia of skin
CPT/HCPCS: 95886; 95911

== ENCOUNTER → 2024-10-15 15:06 | Outpatient (BNV) | payer OTHER, SELFPAY | PROVIDERS: PCP Internal Medicine; Visit Provider Physical Medicine & Rehabilitation | DX: R20.0 Anesthesia of skin (principal); R20.2 Paresthesia of skin; M25.532 Pain in left wrist | CPT/HCPCS: 95886; 95911 ==

== ENCOUNTER 2024-11-12 16:00 | Outpatient (RCR) | payer OTHER, SELFPAY ==
--- NOTE | 2024-07-23 12:24 | MHC.PT.EP ---
[facility] [place] [facility] [place] [facility] [address] [place] [address] [phone] F: [phone] F: [phone] F: [phone] F: [phone] Physical Therapy Plan of Care Date of Evaluation: 07/23/24 Date of Surgery: Diagnosis: This is a 28 yo female presenting to skilled PT with a script for low back pain. Assessment: This is a 28 yo female presenting to skilled PT with a script for low back pain. Patient reporting that she has had back pain for many years. She does not endorse an injury but states that she has pain since she was very young. The patient does endorse that she feels like her job increases her pain/ She had PT for this 3 years ago and it was helpful however she does not remember the exercises. Pain is located from mid thoracic to low back. Pain can radiate into the L LE posteriorly to the knee at times as well. Pain is not centralized but is constant. Pain increases with sitting, bending, lifting and sleeping (supine). Pain is described as pressing and pinching. Patient has not had any other interventions as of yet and no imaging. Assessment reveals pain that ranges from up to a 8/10 at the worst. Patient demos decreased lumbar and thoracic ROM as well as tight and painful hamstring and hip rotation, strength of core, back and gluts with 2 finger diastasis recti noted, TTP at lumbar surrounding soft tissues and impaired posture with excessive lumbar lordosis and anterior pelvic positioning. Based on functional limitations, impaired QOL and pain tolerance patient is a good candidate for skilled PT 2x/wk for 4wks. Frequency and Duration: The patient will be seen 2x/wk for 4wks Short Term Goals: Pt will demonstrate improved postural awareness and understanding of core engagement with supine and standing tasks without cues throughout session to improve overall back safety in 2 weeks. Pt will demonstrate centralization of sx in 2 weeks. Pt will continue to reinforce precautions, sitting, standing and ADL modifications with proper body mechanics at home and at work in 2 wks. 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 Pt will demonstrate ability to bend and lift WNL min to no pain for household tasks in 4 wks. Pt will be I in HEP and compliant in 4wks Treatment Plan: Modalities to reduce pain, spasms and effusion. Manual therapy to restore motion and function. Therapeutic exercise to improve strength and flexibility. Neuromuscular re-education for posture and balance. Therapeutic activities to return to functional activities of daily living. Electronically signed by: Vanesa Martinez PT Please sign and return to therapist. Thank you for your referral.
--- NOTE | 2024-12-05 14:02 | MHC.PT.DC ---
[facility] [place] Office [place] [address] [place] [address] [phone] F: [phone] F: [phone] F: [phone] F: [phone] Physical Therapy Discharge Report Diagnosis: This is a 28 yo female presenting to skilled PT with a script for low back pain. Date of Surgery: Date of Evaluation: 07/23/24 Date of Discharge: 12/05/24 Treatments to Date: 16 Cancellations to Date: 0 No Shows to Date: 0 Discharge Status: Achieved Goals Improved Function Independent with HEP Discharge Summary: Patient came to 16 sessions of PT. She was given a good HEP to continue on her own and recommended further strengthening at the gym. She continued to have some symptoms but we did talk about how this was most likely due to prolonged posturing at work. Patient is I and ready for DC. Electronically signed by: Vanesa Martinez PT Please sign and return to therapist. Thank you for your referral.
== END 2024-12-05 14:02 | disposition home or self-care (01) ==
LOC: HO.PTCHIC 16:00
PROVIDERS: PCP Internal Medicine; Visit Provider Internal Medicine
DX: M54.50 Low back pain, unspecified (principal)
CPT/HCPCS: 97110; 97140; 97162

== ENCOUNTER 2024-11-28 08:42 | Outpatient (AMB) | payer OTHER, SELFPAY ==
[2024-11-28 08:42] VITALS: BMI 21.6
--- NOTE | 2024-11-28 08:42 | MHC.OFFVIS ---
Vital Signs 11/28/24 08:42 Height 4 ft 11 in Weight 107 lb BMI 21.6 Intake Visit Reasons: Tel-Right hand EMG/NCS review Intake Note: Peri is a 29 year old right hand dominant female who presents today VIA telephone to review Right Hand EMG Results. Allergies shrimp Allergy (Verified 11/28/24 08:43) Facial Swelling HPI HPI Tel-Right hand EMG/NCS review: Details: Peri is a 29 year old right hand dominant female who presents today VIA telephone to review Right Hand EMG Results. Patient reports that she is still experiencing numbness and tingling in bilateral hands and wrists. [facility] Medical History Weight loss Annual physical exam Sore throat Knee pain Chronic lower back pain Chronic headaches Eczema Surgical History History of surgical removal of ganglion cyst History of hernia repair Family History Father Medical history non-contributory Mother HTN (hypertension) Maternal Grandfather Unknown family medical history Maternal Grandmother Unknown family medical history Paternal Grandmother No problems noted. Paternal Grandfather Unknown family medical history Brother No problems noted. Sister No problems noted. 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 Cognitive needs: No Hearing needs: No Vision needs: Yes Review of Systems Const All systems reviewed & are unremarkable except as noted in HPI and below Physical Exam Vital Signs: BMI result Body Mass Index 21.6 Telehealth Telehealth Telehealth Platform: Telephone Location of provider rendering services: practice address Location of patient: address on file Patient Identification confirmed using: Name, : Yes Telehealth method: voice only Patient verbally consented to treatment: Yes Patient verbally consented to billing insurance company: Yes Patient informed of any privacy concerns related to visit: Yes Results Reviewed Results Reviewed: IMPRESSION: 1. This is a normal study. 2. There is no electrodiagnostic evidence for median neuropathy, ulnar neuropathy, brachial plexopathy, or cervical radiculopathy. CLINICAL COMMENT: Advised to wear wrist splints at night. Thank you for your kind referral. Aliya Vanegas MD, ILDA Assessment & Plan Assessment & Plan (1) Bilateral wrist pain: Code(s): M25.531 - Pain in right wrist; M25.532 - Pain in left wrist Category: Medical (2) Numbness and tingling in both hands: Code(s): R20.0 - Anesthesia of skin; R20.2 - Paresthesia of skin Category: Medical Plan 1. Numbness, tingling, pain, bilateral wrists Per the patient, pain is primarily located at the base of the thumbs Ongoing for several weeks At this time, patient was informed that her EMG and nerve conduction study were negative, and there is no indication for surgical intervention Patient was referred to occupational therapy for range of motion and strengthening of bilateral hands and wrists Patient was advised that if 4-6 weeks after starting OT she is still experiencing significant discomfort, she should call us for in-person assessment Patient was amenable to this plan Patient will follow-up as needed with any acute concerns Orders: Orders OT Evaluation and Treatment Today M25.531 - Pain in right wrist, M25.532 - Pain in left wrist Coding Level of Care Code Tele New Pt Level 3 (48920) Diagnoses Bilateral wrist pain M25.531; M25.532 Numbness and tingling in both hands R20.0; R20.2
--- OUTSIDE RECORDS SUMMARY | 2024-11-28 08:58 | XMS_ITS | Clinical Summary ---
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 60 g 1 6 Active triamcinolone acetonide (KENALOG) 0.1 % ointmentIndicati ons:Eczema, unspecified type Apply topically 2 (two) times daily 15 g 9 Active Active Problems Problem Noted Date Diagnosed Date Eczema 06/16/2016 Immunizations Name Administration Dates Next Due Hep B, Adult/Adol (ENERGIX/RECOMBIVAX) 8,06/19/2017,05/03/2017 PPD 02/28/2018,02/13/2018,05/01/2017 TDAP 02/15/2018 Family History Medical History Relation Name Comments Hypertension Mother Relation Name Status Comments Father Alive Mother Alive Social History Tobacco Use Types Packs/Day Years Used Date Smoking Tobacco: Never Smokeless Tobacco: Never Alcohol Use Standard Drinks/Week Comments No 0 (1 standard drink = 0.6 oz pur e alcohol) Social Connections Answer Date Recorded Connectedness 0 06/19/2024 Financial Resource Strain Answer Date R ecorded Financial Resource Strain 0 2018 Stress Answer Date Recorded Stress 0 05/25/2019 Physical Activity Answer Date Recorded Physical Activity 0 05/25/2019 Food Insecurity Answer Date Recorded Food 0 06/26/2024 Transportation Needs Answer Date Record ed Transportation 0 05/25/2019 Housing Stability Answer Date Recorded Housing 0 05/25/2019 Safety and Environment Answer Date Vincent rded Safety 0 05/25/2019 Utilities Answer Date Recorded Utilities 0 05/25/2019 Employment Answer Date Recorded Stress 0 06/19/2024 Comments No Sex and Gender Information Value Date Recorded Sex Assigned at Female 11/06/2017 6:32 AM PST Legal Sex Female 6:11 AM PDT Gender Identity Female 11/06/2017 6:32 AM PST Sexual Orientation Don't know 11/06/2017 6: 32 AM PST Last Filed Vital Signs Vital Sign Reading Time Taken Comments Blood Pressure 98/64 01/24/2019 2:29 PM EDT Pulse 64 01/24/2019 2:29 PM EDT Temperature 36.7 ??C (98.1 ??F) 01/24/2019 2:29 PM ED T Respiratory Rate 14 01/24/2019 2:29 PM EDT Oxygen Saturation - - Inhaled Oxygen Concentration - - Weight 45.8 kg (101 lb) 01/24/2019 2:29 PM EDT Height 154.9 cm (5' 1 ) 01/24/2019 2:29 PM EDT Body Mass Index 19.08 01/24/2019 2:29 PM EDT Plan of Treatment Health Maintenance Due Date Last Done Comments HPV Screening 1996 Hepatitis C Screening 1996 Pap + HPV 1996 Tobacco Screening 1996 Relationship Safety Screening/Counseling 2011 Annual Preventive Care Visit 06/16/2017 06/16/2016 Cervical Cancer Screening 2017 Pap Smear 2017 Hypertension Screening (#1) 01/23/2022 [id number] ( season) 2024 Imm-Influenza (#1) 2024 05/28/2017, 0 05/28/2017, 08/25/2015, Additional history exists Alcohol and Drug Screen 10/01/2024 01/25/20 19, 06/16/2016, 06/16/2016 Depression Annual Screen 10/01/2024 01/24/2019, 06/01 Imm-DTaP/Tdap/Td (8 - Td or Tdap) 02/16/2028 02/15/2018, 05/27/2008, 03/05/2008, Additional history exists Imm-Hepatitis B Completed 11/05/2017, 06/01, 05/03/2017, Additional history exists HIV Screening Completed 01/24/2019 Cervical Ablation/Cold-Knife Conization Discontinued Cervical Cryotherapy Discontinued Colposcopy Discontinued Endometrial Biopsy Discontinued Excision/Leep Discontinued HPV Genotyping Discontinued Vaginal Pap Discontinued Vulvoscopy Discontinued Procedures Procedure Name Priority Date/Time Associated Diagnosis Comments ANTIBODY HIV-1&HIV-2 SINGLE RESULT Routine 01/24/2019 3:17 PM EDT Physical exam Screen for STD (sexually transmitted disease) from Last 3 Months or Most Recently Relevant to Health Maintenance Results * HIV-1 & HIV-2 ANTIBODIES (01/24/2019 3:17 PM EDT) HIV 1 AND 2 ANTIBODY SCREEN NEGATIVE NEGATIVE [facility] Comment: This assay is a 4th generation assay allowing for earlier detection of HIV infection by detecting the presence of the HIV-1 p24 antigen as well as the traditional antibodies to HIV type 1 (including group O) and type 2. ??Use of a 4th generation assay is the current CDC recommendation for HIV screening. 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
== END 2024-11-28 08:58 | disposition home or self-care (01) ==
LOC: HO.HOS 08:42
PROVIDERS: PCP Internal Medicine
DX: M25.531 Pain in right wrist (principal); M25.532 Pain in left wrist; R20.0 Anesthesia of skin; R20.2 Paresthesia of skin
CPT/HCPCS: 98012

== ENCOUNTER → 2024-11-28 08:42 | Outpatient (BNVA) | payer OTHER, SELFPAY | PROVIDERS: PCP Internal Medicine ==

== ENCOUNTER 2025-02-11 13:02 | Outpatient (RCR) | payer OTHER, SELFPAY ==
--- NOTE | 2025-01-28 14:56 | MHC.OT.EP ---
[address] [phone] Occupational Therapy Plan of Care Patient Name: Peri Valles Date of Evaluation: 01/28/25 Diagnosis: B/L HAND AND WRIST PAIN Pain Location: L HAND 1-2; R HAND PAINFREE AT REST 7-8/10 L HAND WITH USE - VOLAR WRIST/ ULNAR WRIST 6/10 R HAND WITH USE - DORSAL WRIST/ ULNAR WRIST Pain Score: 0-8/10 Pain Scale Used: Numeric (0 - 10) Aggravating Factors: GRIPPING, PROLONGED RADIAL DEVIATION 45 MINUTE U/S SESSIONS WITH U/S WAND IN VARIOUS POSITIONS ON Pt BODY Alleviating Factors: DOES NOT USE PAIN MEDICATION / HEAT/ ICE Assessment: MS VALLES REPORTS A THREE YEAR HISTORY OF L > R WRIST PAIN. EMG WAS RECENTLY COMPLETED AND FOUND TO BE UNREMARKABLE. SHE STATES THE PAIN IS WORSE WHEN PERFORMING WORK RELATED TASKS WHICH INCLUDES ULTRASOUND WAND IN L HAND AND TYPING/ ROLLER MOUSE USE IN R HAND. A 20% LIMITATION IS REPORTED PER QUICK DASH ASSESSMENT. ONGOING SKILLED OT IS WARRANTED FOR Pt EDUCATION, JT PROTECTION, ACTIVITY MODIFICATIONS, B/L UE STRENGTHENING. Frequency and Duration: The patient will be seen 1X/WEEK FOR 3 WEEKS Short Term Goals: IND PROGRESSION OF HEP IND JT PROTECTION AND ACTIVITY MODIFICATIONS WITH IADLs INCREASE R GRASP TO 50 POUNDS Retirement Goals: SEE ABOVE Treatment Plan: Therapeutic Exercise Therapeutic Activity Home Exercise Program Splinting Neuro Re-ed Patient Education Desensitization/Sensory Re-ed Edema Control ADL Training Ultrasound NMES Iontophoresis Paraffin Fluidotherapy MHP Cold Packs Joint Mobilization Soft Tissue Mobilization Kinesiotaping Other (see comments) Electronically Signed By: SAMUEL BLACKBURN OTR/L Please Sign and return to therapist. Thank you once again for your referral.
--- NOTE | 2025-03-04 15:07 | MHC.OT.DC ---
[address] [phone] F: [phone] Occupational Therapy Discharge Note Patient Name: Peri Valles Provider: Jovon Macdonald Diagnosis: B/L HAND AND WRIST PAIN Date of Evaluation: 01/28/25 Date of Discharge: 03/04/25 Treatments to Date: 3 Cancellations to Date: 0 No Shows to Date: 1 Discharge Status: Improved Function Independent with HEP Patient Elected to Stop Discharge Summary: MS VALLES WAS MOTIVATED AND PROGRESSED WELL WITH HER OT RX SESSIONS. SHE WAS PROVIDED WITH STABILIZATION EXERCISES, JOINT PROTECTION STRATEGIES AND DISCUSSED WORK MODIFICATIONS / ERGONOMICS. READY TO PROGRESS TO A HOME BASED PROGRAM. D/C OT SERVICES. Electronically Signed By: SAMUEL BLACKBURN OTR/Kayley Reviewed/agree with student documentation: N/A Therapist: Please Sign and return to therapist, thank you for your referral.
== END 2025-03-04 15:00 | disposition home or self-care (01) ==
LOC: HO.OT 13:02
PROVIDERS: PCP Internal Medicine
DX: M25.531 Pain in right wrist (principal); M25.532 Pain in left wrist
CPT/HCPCS: 97035; 97110; 97140; 97165

== ENCOUNTER 2025-06-24 11:37 | Outpatient (AMB) | payer OTHER, SELFPAY ==
[2025-06-24 11:38] VITALS: BP 104/66; PULSE 88; TEMP 36.5; O2SAT 99; BMI 25.0
--- NOTE | 2025-06-24 11:38 | A.OFFPC_ITS ---
Vital Signs 06/24/25 11:38 Height 4 ft 11 in Weight 124 lb BMI 25.0 BP 104/66 Blood Pressure Location Lt brachial Position Sitting Pulse 88 Pulse Source Pulse Oximeter Temp 97.7 F Temp Source Oral Pulse Oximetry (%) 99 Oxygen Delivery Method Room Air Intake Visit Reasons: PE Intake Note: Pt is here today for PE. Allergies shrimp Allergy (Verified 06/24/25 11:40) Facial Swelling Tobacco use date assessed: 06/24/25 Dental Screening Dental Screen Date: 01/10/24 HPI PE HPI Details Pt presents for PE. She is 7 months and reports intermittent right upper quadrant abdominal discomfort occasionally after eating. She denies nausea vomiting. Patient reports chronic constipation worse since she got . She denies hematochezia or melena. [facility] Medical History Weight loss Annual physical exam Sore throat Knee pain Chronic lower back pain Chronic headaches Eczema Surgical History History of surgical removal of ganglion cyst History of hernia repair Family History Father Medical history non-contributory Mother HTN (hypertension) Maternal Grandfather Unknown family medical history Maternal Grandmother Unknown family medical history Paternal Grandmother No problems noted. Paternal Grandfather Unknown family medical history Brother No problems noted. Sister No problems noted. 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 1. Little interest or pleasure in doing things: not at all 2. Feeling down, depressed, or hopeless: not at all 3. Trouble falling or staying asleep, or sleeping too much: not at all 4. Feeling tired or having little energy: not at all 5. Poor appetite or overeating: not at all 6. Feeling bad about yourself - or that you are a failure or have let yourself or your family down: not at all 7. Trouble concentrating on things, such as reading the newspaper or watching television: not at all 8. Moving or speaking so slowly that other people could have noticed. Or the opposite - being so fidgety or restless that you have been moving around a lot more than usual: not at all 9. Thoughts that you would be better off or of hurting yourself in some way: not at all Total score: 0 Depression Screening Interpretation: Negative Depression Screening Done: Yes 08823 - PHQ-9 Billing: Yes Source: Developed by Drs. Alfredo Thurston, Blanca Gibbs, Amilcar Henao and colleagues, with an educational shira from [employer]. Thrive Questionnaire Date Thrive assessed: 06/24/25 I am a: Patient What is your living situation today?: I have a steady place to live Within the past 12 months, did the food you bought not last and you didn't have the money to get more?: Never true Within the past 12 months, did you worry whether your food would run out before you got money to buy more?: Never true Do you have trouble paying for medicines?: No Do you have trouble getting transportation to medical appointments?: No Do you have trouble paying your heating and electricity bill?: No Do you have trouble taking care of your child, family member or friend?: No Do you have trouble with day-to-day activities such as bathing, preparing meals, shopping, managing finances, etc.?: No Are you currently unemployed and looking for a job?: No Are you interested in more education?: No Please select the resources that you would like help with: None Currently or been in a relationship where the following occur: No concerns reported THRIVE Score: 0 AUDIT C Alcohol Use Questionnaire (AUDIT-C) 1. How often do you have a drink containing alcohol?: Never 3. How often do you have six or more drinks on one occasion?: Never Total Score: 0 ROGELIO-7 AMB Questionnaire ROGELIO-7 Date ROGELIO - 7 assessed: 06/24/25 Feeling nervous, anxious, or on edge: 0 = Not at all Not being able to stop or control worryin = Not at all Worrying too much about different things: 0 = Not at all Trouble relaxin = Not at all Being so restless that it is hard to sit still: 0 = Not at all Becoming easily annoyed or irritable: 0 = Not at all Feeling afraid as if something awful might happen: 0 = Not at all Total ROGELIO-7 score (0-4 normal; 5-9 mild; 10-14 moderate; 15-21 severe): 0 Source: Developed by Drs. Alfredo Thurston, Blanca Gibbs, Amilcar Henao and colleagues, with an educational shira from [employer]. ROGELIO-7 Assessment Billing ROGELIO-7 Assessment Tool: ROGELIO-7 Assessment 41808 Review of Systems Const All systems reviewed & are unremarkable except as noted in HPI and below Eyes Reports no additional complaints ENT Reports no additional complaints Card Reports no additional complaints Resp Reports no additional complaints GI Reports no additional complaints Physical exam (Primary Care) Vital Signs: Last Vital Signs Temp 97.7 F 06/24/25 11:38 Pulse 88 06/24/25 11:38 BP 104/66 06/24/25 11:38 Pulse Ox 99 06/24/25 11:38 Oxygen Delivery Method Room Air 06/24/25 11:38 BMI result Body Mass Index 25.0 Tobacco/Smoking Status: Tobacco use Status Tobacco use date assessed 06/24/25 06/24/25 11:43 Patient Tobacco Use Status Never used Tobacco 06/24/25 11:43 e-Cigarette/Vaping Use Never Used 06/24/25 11:43 PHQ-9: PHQ-9 Score PHQ-9: Total score 0 06/24/25 11:43 Depression Screening Interpretation: Negative Thrive Assessment: Date of Thrive Assessment Date Thrive assessed 06/24/25 06/24/25 11:43 Currently or been in a relationship where the following occur: No concerns reported Const General: no acute distress HENMT Head: Yes normal to inspection Ears: TM's normal bilaterally Face and sinus: Yes normal facial exam Mouth: Normal oral and palatal mucosa present Throat: Yes posterior oropharynx normal Eyes General: appearance normal, both eyes and all related structures Neck Neck: Yes no lymphadenopathy and Yes supple Resp Effort & Inspection: normal respiratory effort Auscultation: clear to auscultation bilaterally Cardio Rhythm: regular rhythm Heart sounds: S1 normal heart sound present and S2 normal heart sound present GI Inspection: Yes normal to inspection Palpation (GI): Soft to palpation Percussion: Yes normal to percussion Auscultation: normal bowel sounds Coding Level of Care Code Est Pt Prev Care 18-39y(32799) Diagnoses RUQ pain R10.11 Annual physical exam Z00.00 Additional Codes ROGELIO-7 Assessment Billing - ROGELIO-7 Assessment Tool: ROGELIO-7 Assessment 93240 ([id number]) PHQ-9 - 54107 - PHQ-9 Billing: Yes ([id number]) Assessment & Plan Assessment & Plan (1) RUQ pain: Code(s): R10.11 - Right upper quadrant pain Category: Medical Plan: Obtain abdominal ultrasound to rule out gallstones, increasing fiber and fluid intake for chronic constipation discussed with the patient (2) Annual physical exam: Code(s): Z00.00 - Encounter for general adult medical examination without abnormal findin gs Category: Medical Plan: Well-balanced diet regular physical activity discussed with the patient Orders: Orders US abdomen limited Today R10.11 - Right upper quadrant pain
--- OUTSIDE RECORDS SUMMARY | 2025-06-24 14:43 | XMS_ITS | Clinical Summary ---
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 Name Role Phone Joya Fernandez PA-C Primary Care Provider [phone] Source Comments PLEASE NOTE, if this patient [...] Noted Date Diagnosed Date Eczema 06/16/2016 Immunizations Immunization Administration Dates Next Due Hep B, Adult/Adol ([id number]/RECOMBIVAX-ADULT) 11/05/2017,06/19/2017,05/03/2017 PPD 02/28/2018,02/13/2018,05/01/2017 TDAP 02/15/2018 Family History Medical [...] 64 01/24/2019 2:29 PM EDT Temperature 36.7 C (98.1 F) 01/24/2019 2:29 PM EDT Respiratory Rate 14 01/24/2019 2:29 PM EDT Oxygen Saturation - - Inhaled Oxygen Concentration - - Weight 45.8 kg (101 lb) 01/24/2019 2:29 PM EDT Height 154.9 cm (5' 1 ) 01/24/2019 2:29 PM EDT Body Mass Index 19.08 01/24/2019 2:29 PM EDT Plan of Treatment Not on file Insurance [facility] Care Teams Computing Machine Operator Relationship Specialty Start Date End Date Joya Fernandez PA-C [address] [place] [address] PCP - General Internal Medicine 06/21/19
== END 2025-06-24 11:51 | disposition home or self-care (01) ==
LOC: HO.HMCC 11:38
PROVIDERS: PCP Internal Medicine; Visit Provider Internal Medicine
DX: R10.11 Right upper quadrant pain (principal); Z00.00 Encounter for general adult medical examination without abnormal findings

== ENCOUNTER → 2025-06-24 11:37 | Outpatient (BNVA) | payer OTHER, SELFPAY | PROVIDERS: PCP Internal Medicine; Visit Provider Internal Medicine | DX: Z00.01 Encounter for general adult medical examination with abnormal findings (principal); O26.892 Other specified pregnancy related conditions, second trimester; R10.11 Right upper quadrant pain; Z3A.00 Weeks of gestation of pregnancy not specified; Z13.31 Encounter for screening for depression; Z13.39 Encounter for screening examination for other mental health and behavioral disorders | CPT/HCPCS: 96127 ==

== ENCOUNTER 2025-08-19 10:00 | Outpatient (REF) | payer OTHER, SELFPAY ==
--- NOTE | ~2025-08-19 | US_ITS ---
CLINICAL HISTORY: R10.11 - Right upper quadrant pain r o gb stones --- Additional Notes or Special Instructions: r o gallbladder stones Ultrasound gallbladder Comparison: None provided Findings: Gallbladder unremarkable without stones. No wall thickening or ductal dilation. Common bile duct: 3.1 mm. Impression: No significant abnormality This document has been electronically signed by: Naresh Yang MD on 08/19/2025 19:44:32
== END 2025-08-19 10:01 | disposition home or self-care (01) ==
LOC: HO.HMGCX 10:00
PROVIDERS: PCP Internal Medicine; Visit Provider Internal Medicine
DX: R10.11 Right upper quadrant pain (principal)
CPT/HCPCS: 76705

== ENCOUNTER → 2025-08-19 10:02 | Outpatient (BNV) | payer OTHER, SELFPAY | PROVIDERS: PCP Internal Medicine; Visit Provider Radiology Diagnostic Radiology | DX: R10.11 Right upper quadrant pain (principal) | CPT/HCPCS: 76705 ==